=== PATIENT | male | born 1945 | race Caucasian/White ===

== ENCOUNTER 2018-11-04 09:06 | Observation (INO) | payer MEDICARE, BC ==
[2018-11-04 10:07] LABS: Mean Corpuscular HGB CONC 31.6 g/dL (32.0-36.0); Mean Corpuscular Hemoglobin 30.7 pg (27.0-31.0); Mean Corpuscular Volume 97.2 fL (78.0-98.0); RBC Distribution Width 14.4 % (11.5-14.5); Red Blood Cell (RBC) Count 4.56 mill/uL (4.70-6.10); White Blood Cell (WBC) Count 4.5 thou/uL (4.8-10.8)
[2018-11-04 10:09] LABS: ALT (SGPT) 11 U/L (8-55); AST (SGOT) 21 U/L (5-34); Alkaline Phosphatase 59 U/L (40-150); Anion Gap 11 mmol/L (10-20); BUN (Urea Nitrogen) 24 mg/dL (8.4-25.7); Bilirubin, Total 0.2 mg/dL (0.2-1.2); Calc. Creatinine Clearance 0 mL/min (70-130); Carbon Dioxide 27 mmol/L (23-31); Chloride 107 mmol/L (98-107); Estimated GFR-MDRD 40; Globulin 2.4 g/dL (2.4-3.5); Glucose 81 mg/dL (83-110); Potassium 4.4 mmol/L (3.5-5.1); Protein, Total 6.4 g/dL (5.8-8.1); Sodium 141 mmol/L (136-145)
--- NOTE | 2018-11-04 10:23 | RAD ---
EXAM: XR Ankle Rt 3 View STANDARD PROVIDED CLINICAL HISTORY: Pain COMPARISON: None FINDINGS: Nondisplaced Palacio B distal fibular fracture. Nondisplaced base of medial malleolar fracture. Possibl e nondisplaced posterior malleolar fracture. Diffuse regional osteopenia. Ankle mortise appears symmetric. Joint spaces appear preserved. IMPRESSION: Medial and lateral malleolar fractures, with possible posterior malleolar fracture.
--- NOTE | 2018-11-04 10:24 | RAD ---
EXAM: XR Knee Rt 4 View STANDARD PROVIDED CLINICAL HISTORY: Pain status post injury COMPARISON: 04/19/2016 FINDINGS: Acute nondisplaced proximal fibular shaft fracture. Chondrocalcinosis. Diffuse regional osteopenia. V ascular calcifications. Mild degenerative change, similar to prior. IMPRESSION: Acute nondisplaced proximal fibular shaft fracture.
--- NOTE | 2018-11-04 10:24 | RAD ---
3 views left ankle. HISTORY: Fall with pain left ankle. AP, lateral and oblique views left ankle obtained. Soft tissue swelling seen surrounding the left ankle. No evidence of acute fractures or bony lesion s een. IMPRESSION: no evidence of acute left ankle fracture seen.
--- NOTE | 2018-11-04 10:25 | RAD ---
EXAM: XR Hip Rt 2-3 View PROVIDED CLINICAL HISTORY: Pain FINDINGS: Comparison 04/19/2016. There is no evidence for fracture or other acute osseous abnormality. Alignmen t appears anatomic. Right hip degenerative changes are again seen. IMPRESSION: No evidence for an acute osseous abnormality. If there is persistent clinical concern, conservative m anagement and follow-up imaging advised.
[2018-11-04 10:37] LABS: #Eosinphils 0.1 thou/uL (0.0-0.7); #Lymphocytes 1.5 thou/uL (1.20-3.40); #Monocytes 0.4 thou/uL (0.11-0.59); #Neutrophils 2.4 thou/uL (1.40-6.50); %Basophils 0.7 % (0.0-1.0); %Eosinophils 3.1 % (0.0-10.0); %Lymphocytes 34.4 % (21.0-51.0); %Monocytes 8.6 % (0.0-10.0); %Neutrophils 53.2 % (42.0-75.0); Mean Platelet Volume 9.5 fL (7.4-10.4); Platelet Count 104 thou/uL (130-400); Platelet Morphology Comment Appears Decreased
[2018-11-04] MEDS ORDERED: Morphine 4 MG/ML VIAL ONE (12:15)
[2018-11-04] MEDS ORDERED: Ondansetron PF 4 MG/2 ML Vial IVP PRN (13:11)
[2018-11-04] MEDS ORDERED: Acetaminophen 325 MG TAB PO PRN (13:11)
[2018-11-04] MEDS ORDERED: Senokot S 8.6-50 MG TAB PO PRN (13:11)
[2018-11-04] MEDS ORDERED: Zolpidem Tartrate 5 MG TAB PO PRN (13:11)
--- NOTE | 2018-11-04 13:21 | PDOC.EVN ---
Event Note - Event Note Event Note: H&P #[id number]
[2018-11-04 15:33] VITALS: BMI 40.3
[2018-11-04] MEDS: Sodium Chloride 0.9% 1,000 ML IV SCH (16:20)
[2018-11-04] MEDS: HYDROcodone/Acetaminophen 5/325 mg Tablet PO PRN ×2 (17:33→21:58)
--- NOTE | 2018-11-04 18:19 | HP ---
ADMITTING COMPLAINT: Syncope, fall, and leg pain. HISTORY OF PRESENT ILLNESS: This is a 73-year-old male, being seen in the hospital because of a fall. The patient's is at bedside, who also provides a history. Apparently, the patient was walking and had a fall. The patient has a history of myasthenia gravis and thus takes medications every 6 hours. The patient's says that she was not sure if he actually had a syncopal episode with mechanical fall or fevers, just simply tired for not being able to get a good amount of sleep. The patient has been carried a diagnosis of myasthenia gravis for the past few years. The patient on imaging study was found to be having a nondisplaced fibular fracture in the right leg as well as medial and lateral malleolar fractures. Orthopedic Surgery was consulted and the case discussed between the ER and orthopedic surgeon. Per request, the patient was to be made n.p.o. past midnight. The patient at this point in time states that he does not have any other associated complaints or issues. No alleviating or aggravating factors. The patient seen and examined in the ER. at bedside. All questions answered. ALLERGIES: TO MINOCYCLINE AND TETRACYCLINE. MEDICATIONS: See MAR. FAMILY HISTORY: Negative for any medical diseases. SOCIAL HISTORY: Nondrinker. Nonsmoker. REVIEW OF SYSTEMS: All systems reviewed, pertinent positive in HPI, otherwise negative. PHYSICAL EXAMINATION: VITAL SIGNS: Blood pressure is 105/88, temperature of 98, heart rate of 52, respiratory rate of 18, and O2 saturation 100% on room air. GENERAL: The patient lying in bed. No acute discomfort. Obese. HEENT: Pupils are equal, round, and reactive to light and accommodation. Extraocular muscles intact. Oral cavity moist and pink. NECK: Supple, mobile, and nontender. Thyroid appreciated. PULMONARY: Clear to auscultation bilaterally. No rales, rhonchi, or wheezing appreciated. CARDIOVASCULAR: Sinus bradycardia. No rubs or gallops appreciated. ABDOMEN: Positive bowel sounds. Soft and nondistended. EXTREMITIES: 1+ pitting edema in bilateral lower extremities. Right lower extremity pain upon movement. LABS: Reviewed. IMAGES: Reviewed. ASSESSMENT: 1. Syncope. 2. Myasthenia gravis. 3. Hypotension. 4. Chronic lymphedema. 5. Right-sided malleolar and fibular fractures. PLAN: At this point in time, we will admit the patient to the Observation Service. Keep the patient n.p.o. past midnight, allow a diet for now. We will repeat labs in the morning and also check TSH, echocardiogram, trend cardiac enzymes, and follow up with Orthopedic evaluation. Once home medications are reconciled, we will continue his myasthenia gravis home medications. Otherwise, p.r.n. medications will be continued. Case and plan discussed with the patient and at length, they understood and agreed with this plan. Job ID: [id number]
[2018-11-04 20:02] LABS: Troponin I Less than 0.010 ng/mL (< 0.028)
[2018-11-04] MEDS: Tamsulosin HCl 0.4 MG CAP PO SCH (21:54)
[2018-11-04] MEDS: levETIRAcetam 500 MG TAB PO SCH (21:54)
[2018-11-04] MEDS: Atorvastatin Calcium 40 MG TAB PO SCH (21:54)
[2018-11-04] MEDS: Heparin 5,000 UNITS/ML VIAL SC SCH (23:48)
[2018-11-05] MEDS ORDERED: levETIRAcetam 500 MG TAB PO SCH (00:15)
[2018-11-05] MEDS ORDERED: tiZANidine HCl 4 MG TAB PO SCH (00:15)
[2018-11-05] MEDS ORDERED: clonazePAM 0.5 MG TAB PO SCH (00:15)
--- NOTE | 2018-11-05 00:58 | CON ---
DATE OF CONSULTATION: HISTORY OF PRESENT ILLNESS: This is a pleasant 73-year-old gentleman who suffered a very low energy fall on his walker today at home and suffered a bimalleolar ankle fracture. PAST MEDICAL HISTORY: His past medical history is very significant for myasthenia gravis. He is very weak. He is a household ambulator with a walker at this time. There is a possible syncopal episode at the same time. This is unclear. PHYSICAL EXAMINATION: GENERAL: Shows an obese gentleman. His eyelids are almost completely closed on oxygen, breathing fairly heavily. EXTREMITIES: He has a splint on his right foot. He has intact capillary refill. Intact sensation in his toes. Splint appears to be in good condition, is not biting. LABORATORY DATA: Radiograph showed a bimalleolar ankle fracture which is completely nondisplaced. PLAN: We had a lengthy discussion tonight. His fractures are nondisplaced. With or without surgery, he will not be able to bear weight on this leg for at least six weeks, possibly 12. Therefore, I do not see a big advantage to surgically fixing the bones unless they happened to displace. Also, I think the risk of general anesthesia is great for him. I think it would be possibly difficult for him to come off the ventilator if he is put to sleep. For these reasons, we would like nonoperative treatment. He expressed to me his desire to go to [facility] in [place], but we will do our best to facilitate this once his medical workup is completed. Job ID: [id number]
[2018-11-05 04:44] LABS: INR-International Normal Ratio 1.1; PTT 25.7 SEC (22.9-36.1)
[2018-11-05 04:58] LABS: Anion Gap 14 mmol/L (10-20); BUN (Urea Nitrogen) 20 mg/dL (8.4-25.7); Calc. Creatinine Clearance 148 mL/min (70-130); Calcium 8.7 mg/dL (7.8-10.44); Carbon Dioxide 22 mmol/L (23-31); Chloride 107 mmol/L (98-107); Estimated GFR-MDRD 79; Glucose 63 mg/dL (83-110); Potassium 4.3 mmol/L (3.5-5.1); Sodium 139 mmol/L (136-145)
[2018-11-05 05:04] LABS: Troponin I 0.011 ng/mL (< 0.028)
[2018-11-05] MEDS: HYDROcodone/Acetaminophen 5/325 mg Tablet PO PRN ×2 (05:05→15:23)
[2018-11-05 05:10] LABS: Band 3 % (5-11); Hemoglobin 13.3 g/dL (14.0-18.0); Lymphocytes 25 % (21-51); MDiff Complete? YES; Mean Corpuscular HGB CONC 31.3 g/dL (32.0-36.0); Mean Corpuscular Hemoglobin 30.5 pg (27.0-31.0); Mean Corpuscular Volume 97.6 fL (78.0-98.0); Mean Platelet Volume 9.3 fL (7.4-10.4); Monocytes 3 % (0-10); Neutrophil 69 % (42-75); Platelet Count 92 thou/uL (130-400); Platelet Morphology Comment Appears Decreased; RBC Distribution Width 14.3 % (11.5-14.5); RBC Morphology Normal; Red Blood Cell (RBC) Count 4.37 mill/uL (4.70-6.10)
[2018-11-05] MEDS: Sodium Chloride 0.9% 1,000 ML IV SCH (07:17)
[2018-11-05] MEDS: levETIRAcetam 500 MG TAB PO SCH ×2 (08:18→20:11)
[2018-11-05] MEDS: Pregabalin 75 MG CAP PO SCH ×2 (08:20→20:11)
[2018-11-05] MEDS: tiZANidine HCl 4 MG TAB PO SCH ×3 (08:22→20:10)
[2018-11-05] MEDS: clonazePAM 1 MG TAB PO SCH ×2 (08:22→20:10)
[2018-11-05] MEDS: Aspirin 325 MG TAB PO SCH (08:22)
[2018-11-05] MEDS: Pyridostigmine Bromide IR 60 MG TAB PO SCH ×4 (08:43→20:10)
[2018-11-05] MEDS ORDERED: Prevnar 13-Val Conj/PF 0.5 ML SYRINGE IM ONE (09:00)
[2018-11-05] MEDS: Heparin 5,000 UNITS/ML VIAL SC SCH ×2 (10:32→20:12)
--- NOTE | 2018-11-05 11:29 | PDOC.PN ---
- Subjective Encounter Start Date: 11/05/18 Encounter Start Time: 11:27 Patient seen and examined, no new issues. - Objective Vital Signs & Weight: Vital Signs (12 hours) Temp Pulse Resp BP BP Pulse Ox 11/05/18 08:20 98.7 F 67 18 136/61 94 L 11/05/18 04:40 97.9 F 60 18 139/60 99 11/05/18 00:00 97.7 F 56 L 18 141/65 H 99 Weight Weight 330 lb I&O: 11/04/18 11/05/18 11/06/18 06:59 06:59 06:59 Intake Total 1000 1000 Output Total 905 300 Balance 95 700 Result Diagrams: 11/05/18 04:28 11/05/18 04:28 Phys Exam - Physical Examination Constitutional: NAD HEENT: PERRLA, moist MMs, sclera anicteric Neck: no nodes, no JVD, supple Respiratory: no wheezing, no rales, no rhonchi Cardiovascular: RRR, no significant murmur, no rub Gastrointestinal: soft, non-tender, no distention, positive bowel sounds Musculoskeletal: pulses present, edema present RLE in wrap Dx/Plan (1) Right fibular fracture Code(s): S82.401A - UNSP FRACTURE OF SHAFT OF RIGHT FIBULA, INIT FOR CLOS FX Status: Acute (2) Sinus bradycardia Code(s): R00.1 - BRADYCARDIA, UNSPECIFIED Status: Acute (3) Alzheimer's dementia Code(s): G30.9 - ALZHEIMER'S DISEASE, UNSPECIFIED Status: Chronic (4) Obesity (BMI 30-39.9) Code(s): E66.9 - OBESITY, UNSPECIFIED Status: Chronic - Plan * pending placement, no sx intervention for now * pain control * cont PT * DC once placement arranged * echo normal, asymptomatic bradycardia, will monitor * case and plan d/w patient at length, he understood and agreed with this plan
[2018-11-05] MEDS: Morphine 4 MG/ML VIAL SLOW IVP PRN (17:37)
[2018-11-05] MEDS: Atorvastatin Calcium 40 MG TAB PO SCH (20:10)
[2018-11-05] MEDS: Tamsulosin HCl 0.4 MG CAP PO SCH (20:11)
[2018-11-05] MEDS ORDERED: TESTOSTERONE 4 MG TD SCH (21:00)
[2018-11-06] MEDS: Morphine 4 MG/ML VIAL SLOW IVP PRN ×2 (05:17→17:07)
[2018-11-06] MEDS: clonazePAM 1 MG TAB PO SCH ×2 (08:33→21:12)
[2018-11-06] MEDS: Pregabalin 75 MG CAP PO SCH ×2 (08:34→21:11)
[2018-11-06] MEDS: Aspirin 325 MG TAB PO SCH (08:36)
[2018-11-06] MEDS: tiZANidine HCl 4 MG TAB PO SCH ×3 (08:36→21:12)
[2018-11-06] MEDS: levETIRAcetam 500 MG TAB PO SCH ×2 (08:37→21:12)
[2018-11-06] MEDS: Pyridostigmine Bromide IR 60 MG TAB PO SCH ×4 (08:38→21:12)
[2018-11-06] MEDS: Heparin 5,000 UNITS/ML VIAL SC SCH ×2 (08:38→21:14)
[2018-11-06 14:52] LABS: Bilirubin Negative (Negative); Blood, Urine Negative (Negative); Clarity CLEAR (Clear); Glucose, Urine (Dipstick) Negative (Negative); Leukocyte Negative (Negative); Nitrite Negative (Negative); Protein, Urine (Dipstick) Negative (Neg-Trace); Specific Gravity, Urine 1.015 (1.002-1.036); Urobilinogen 0.2 mg/dL (0.2-1.0)
[2018-11-06 14:53] LABS: Bacteria/HPF None Seen HPF (None Seen); Hyaline Casts/LPF 0-3 HYALINE CAST LPF (0-3 Hyaline); RBC/HPF 0-3 HPF (0-3); Squamous Epithelial None Seen HPF (0-3); WBC/HPF None Seen HPF (0-3)
[2018-11-06 14:56] LABS: Urine Culture Reflex No No
--- NOTE | 2018-11-06 17:12 | PDOC.PN ---
- Subjective Encounter Start Date: 11/06/18 Encounter Start Time: 10:15 Subjective: pt up in bed complains of pain to his right leg - Objective Vital Signs & Weight: Vital Signs (12 hours) Temp Pulse Pulse Pulse Pulse Resp BP 11/06/18 14:06 72 65 70 130/62 11/06/18 12:30 97.7 F 60 16 11/06/18 07:55 97.9 F 65 16 BP BP BP Pulse Ox 11/06/18 14:06 183/71 H 142/64 H 11/06/18 12:30 139/64 96 11/06/18 07:55 143/60 H 94 L Weight Weight 333 lb 3.2 oz I&O: 11/05/18 11/06/18 11/07/18 06:59 06:59 06:59 Intake Total 1000 2930 480 Output Total 905 2450 Balance 95 480 480 Result Diagrams: 11/05/18 04:28 11/05/18 04:28 Phys Exam - Physical Examination Respiratory: no wheezing, no rales, no rhonchi, wheezing present, clear to auscultation bilateral Cardiovascular: RRR, no significant murmur, no rub, gallop, irregular Gastrointestinal: soft, non-tender, no distention, positive bowel sounds Musculoskeletal: edema present right leg wrapped Dx/Plan (1) Right fibular fracture Code(s): S82.401A - UNSP FRACTURE OF SHAFT OF RIGHT FIBULA, INIT FOR CLOS FX Status: Acute (2) Encephalopathy Code(s): G93.40 - ENCEPHALOPATHY, UNSPECIFIED Status: Acute (3) BPH (benign prostatic hyperplasia) Code(s): N40.0 - BENIGN PROSTATIC HYPERPLASIA WITHOUT LOWER URINRY TRACT SYMP Status: Chronic (4) Myasthenia gravis Code(s): G70.00 - MYASTHENIA GRAVIS WITHOUT (ACUTE) EXACERBATION Status: Acute - Plan spoke with pt's about placement. she will talk with her about -: going to inpatient rehab. neurology consult pending -: ua pending. no plans for surgery. * . Review of Systems - Review of Systems Respiratory: negative: Cough, Dry, Shortness of Breath, Hemoptysis, SOB with Excertion, Pleuritic Pain, Sputum, Wheezing Cardiovascular: negative: chest pain, palpitations, orthopnea, paroxysmal nocturnal dyspnea, edema, light headedness, other Gastrointestinal: negative: Nausea, Vomiting, Abdominal Pain, Diarrhea, Constipation, Melena, Hematochezia, Other Musculoskeletal: Leg Pain - Medications/Allergies Allergies/Adverse Reactions: Allergies Allergy/AdvReac Type Severity Reaction Status Date / Time Tetracyclines Allergy Verified 11/04/18 16:03 Medications: Current Medications Acetaminophen (Tylenol) 650 mg PO Q4H PRN PRN Reason: Headache/Fever/Mild Pain (1-3) Aspirin (Aspirin) 325 mg PO DAILY [facility] Last Admin: 11/06/18 08:36 Dose: 325 mg Atorvastatin Calcium (Lipitor) 40 mg PO HS [facility] Last Admin: 11/05/18 20:10 Dose: 40 mg Cholecalciferol (Vitamin D) 400 units PO DAILY [facility] Clonazepam (Klonopin) 1 mg PO BID [facility] Last Admin: 11/06/18 08:33 Dose: 1 mg Heparin Sodium (Porcine) (Heparin) 5,000 units SC BID [facility] Last Admin: 11/06/18 08:38 Dose: 5,000 units Levetiracetam (Keppra) 250 mg PO BID [facility] Last Admin: 11/06/18 08:37 Dose: 250 mg Metaxalone (Skelaxin) 800 mg PO TID [facility] Last Admin: 11/06/18 17:07 Dose: 800 mg Morphine Sulfate (Morphine) 2 mg SLOW IVP Q12H PRN PRN Reason: Pain Last Admin: 11/06/18 17:07 Dose: 2 mg Non-Formulary Medication (Testosterone [Androderm]) 4 mg TD [facility] Ondansetron HCl (Zofran) 4 mg IVP Q6H PRN PRN Reason: Nausea/Vomiting Pantoprazole Sodium (Protonix) 40 mg PO DAILY [facility] Last Admin: 11/06/18 08:38 Dose: 40 mg Pregabalin (Lyrica) 150 mg PO BID [facility] Last Admin: 11/06/18 08:34 Dose: 150 mg Pyridostigmine [place] (Mestinon) 60 mg PO QID [facility] Last Admin: 11/06/18 17:06 Dose: 60 mg Senna/Docusate Sodium (Senokot S) 2 tab PO BID PRN PRN Reason: Constipation Tamsulosin HCl (Flomax) 0.4 mg PO HS [facility] Last Admin: 05/06/19 20:11 Dose: 0.4 mg Tizanidine HCl (Zanaflex) 4 mg PO TID [facility] Last Admin: 11/06/18 17:07 Dose: 4 mg Zolpidem Tartrate (Ambien) 5 mg PO HSPRN PRN PRN Reason: Insomnia Last Admin: 11/05/18 20:10 Dose: 5 mg
[2018-11-06] MEDS: Tamsulosin HCl 0.4 MG CAP PO SCH (21:13)
[2018-11-06] MEDS: Atorvastatin Calcium 40 MG TAB PO SCH (21:13)
[2018-11-07] MEDS ORDERED: Sodium Chloride 0.9% 10 ML ONE (05:40)
[2018-11-07] MEDS: Morphine 4 MG/ML VIAL SLOW IVP PRN ×2 (05:43→19:09)
--- NOTE | 2018-11-07 07:49 | PRG ---
DATE OF SERVICE: 11/06/2018 Mr. Martin was admitted after taking a fall at home, which resulted in a fracture of his right foot. He is a new patient of mine with 3 ongoing medical neurologic issues including peripheral neuropathy with painful feet, gait difficulties secondary to this, myasthenia gravis, and complex partial seizures. He has been doing relatively well from a standpoint of his myasthenia gravis. When seen in the office, his strength was quite normal. He has not had any seizures in quite some time. His biggest complaint was related to his neuropathy. He was also recently seen by Dr. Epstein for pain management of neuropathy. Since admission, he reports that his strength is otherwise good. He is having quite a bit of pain in the right hip as well as the right lower leg. This limits his ability to move it. He does not report any upper extremity weakness or difficulty swallowing, or speech changes. On exam, he is alert and appropriate. His speech is fluent and clear. Cranial nerves are intact. Motor exam shows good strength in both upper extremities. He has antigravity strength in the left leg. When attempting to move the right leg at all, he yells out in pain. Sensation was intact to light touch. No abnormal movements were seen. Neurologically, things seem to be relatively stable. I do not see any need for change in his treatment. The current question is how his fracture is going to be handled. I will be available if you have any further concerns. Job ID: [id number]
[2018-11-07] MEDS: clonazePAM 1 MG TAB PO SCH (08:31)
[2018-11-07] MEDS: Aspirin 325 MG TAB PO SCH (08:31)
[2018-11-07] MEDS: levETIRAcetam 500 MG TAB PO SCH (08:32)
[2018-11-07] MEDS: Pregabalin 75 MG CAP PO SCH ×3 (08:33→16:26)
[2018-11-07] MEDS: Pyridostigmine Bromide IR 60 MG TAB PO SCH ×3 (08:34→16:26)
[2018-11-07] MEDS: tiZANidine HCl 4 MG TAB PO SCH ×2 (08:34→15:28)
[2018-11-07] MEDS ORDERED: Cholecalciferol (Vitamin D3) 400 UNITS TAB PO SCH (09:00)
[2018-11-07] MEDS: Heparin 5,000 UNITS/ML VIAL SC SCH (10:27)
[2018-11-07 11:24] LABS: #Eosinphils 0.2 thou/uL (0.0-0.7); #Monocytes 0.4 thou/uL (0.11-0.59); %Basophils 0.7 % (0.0-1.0); %Eosinophils 5.2 % (0.0-10.0); %Lymphocytes 27.9 % (21.0-51.0); %Monocytes 11.8 % (0.0-10.0); %Neutrophils 54.5 % (42.0-75.0); Hemoglobin 12.9 g/dL (14.0-18.0); Mean Corpuscular HGB CONC 32.5 g/dL (32.0-36.0); Mean Corpuscular Hemoglobin 30.9 pg (27.0-31.0); Mean Corpuscular Volume 95.2 fL (78.0-98.0); Mean Platelet Volume 9.4 fL (7.4-10.4); Platelet Count 91 thou/uL (130-400); RBC Distribution Width 13.9 % (11.5-14.5); Red Blood Cell (RBC) Count 4.17 mill/uL (4.70-6.10); White Blood Cell (WBC) Count 3.7 thou/uL (4.8-10.8)
--- NOTE | 2018-11-07 12:26 | PDOC.PN ---
- Subjective Encounter Start Date: 11/07/18 Encounter Start Time: 12:26 Doing ok. No new complaints. Says surgeon told him he would never walk again. Moderate pain now. - Objective Vital Signs & Weight: Vital Signs (12 hours) Temp Pulse Resp BP BP Pulse Ox 11/07/18 12:05 98.9 F 69 18 138/63 97 11/07/18 08:27 99.1 F 60 16 149/67 H 94 L 11/07/18 03:00 99.3 F 68 20 152/71 H 96 Weight Weight 333 lb I&O: 11/06/18 11/07/18 11/08/18 06:59 06:59 06:59 Intake Total 2930 1300 Output Total 2450 1875 Balance 480 -575 Result Diagrams: 11/07/18 11:13 11/05/18 04:28 Phys Exam - Physical Examination Constitutional: NAD Morbidly obese. Respiratory: no wheezing, no rales, no rhonchi, clear to auscultation bilateral Cardiovascular: RRR, no significant murmur Gastrointestinal: soft, non-tender, no distention, positive bowel sounds RLE in soft cast at ankle. Bruising and edema B great toes. Psychiatric: normal affect Dx/Plan (1) Seizure disorder Code(s): G40.909 - EPILEPSY, UNSP, NOT INTRACTABLE, WITHOUT STATUS EPILEPTICUS Status: Acute (2) Peripheral neuropathy Code(s): G62.9 - POLYNEUROPATHY, UNSPECIFIED Status: Acute (3) Myasthenia gravis Code(s): G70.00 - MYASTHENIA GRAVIS WITHOUT (ACUTE) EXACERBATION Status: Acute (4) Right fibular fracture Code(s): S82.401A - UNSP FRACTURE OF SHAFT OF RIGHT FIBULA, INIT FOR CLOS FX Status: Acute (5) BPH (benign prostatic hyperplasia) Code(s): N40.0 - BENIGN PROSTATIC HYPERPLASIA WITHOUT LOWER URINRY TRACT SYMP Status: Chronic (6) Obesity (BMI 30-39.9) Code(s): E66.9 - OBESITY, UNSPECIFIED Status: Chronic (7) Sleep apnea Code(s): G47.30 - SLEEP APNEA, UNSPECIFIED Status: Chronic - Plan * Patient is still in obs. * He is reluctant to go to [facility], but has now accepted that potential option * Rehab eval pending. * No surgery on R ankle fx. * Continue home meds.
[2018-11-07 15:27] VITALS: BP 122/60; TEMP 98.3
--- NOTE | 2018-11-08 12:15 | DIS ---
DATE OF ADMISSION: 11/04/2018 DATE OF DISCHARGE: 11/07/2018 DISCHARGE DIAGNOSES: 1. Right malleolar and fibular fracture. 2. History of seizure disorder. 3. Peripheral neuropathy. 4. History of myasthenia gravis. 5. BPH. 6. Obesity. 7. Obstructive sleep apnea. HISTORY OF PRESENT ILLNESS: This patient is a 73-year-old male with a history of myasthenia gravis and peripheral neuropathy, who had a low-impact fall at home and hurt his right ankle and had evidence of fibular and malleolar fracture in the emergency department. The patient was placed in observation due to concerns for relatively low blood pressure and the possibility of syncope. He was seen by Dr. Talamantes in the orthopedic service, who felt the patient would benefit from conservative management rather than surgical intervention due to concerns of a possible syncopal episode. An echocardiogram was performed, which revealed suggestion of diastolic dysfunction, EF 55% to 60%, and there was dilatation of the aortic root in the ascending aorta. The patient's neurologist, Dr. Enriquez, was consulted per the family request, who felt the patient neurologically was quite stable and did not recommend any changes in his regimen. The patient was then in a position, trying to figure out how to manage with his neurologic issues and his fracture. He was evaluated by Inpatient Rehab Facility and although reluctant, was accepted there and was transferred to that facility. On the day of discharge, his physical exam is documented in the progress note on the same day. DISPOSITION: The patient is discharged in stable condition to the Inpatient Rehab Facility at [place]. DISCHARGE INSTRUCTIONS: He will be nonweightbearing on the right lower extremity for at least 6 weeks. He will be on a regular diet. He will have OT and PT. DISCHARGE MEDICATIONS: He will be on, 1. P.r.n. acetaminophen. 2. Vitamin D. 3. Subcu heparin. 4. Morphine p.r.n. 5. Pantoprazole 40 mg daily. 6. Senokot-S b.i.d. 7. Ambien 5 mg at bedtime p.r.n. 8. Flomax 0.4 at bedtime. 9. Androderm 4 mg patch at bedtime. 10. Vitamin D3. 11. Lipitor 40 mg at bedtime. 12. Vitamin B12 of 1000 mcg daily. 13. Keppra 250 mg b.i.d. 14. Klonopin 1 mg b.i.d. 15. Metaxalone 800 mg t.i.d. 16. Mestinon 1 p.o. q.i.d. 17. Tizanidine 4 mg t.i.d. 18. Lyrica 150 mg q.i.d. 19. Aspirin 81 mg p.o. daily. FOLLOWUP: He is to see Dr. Bustamante in the Rehab and will follow up with Dr. Enriquez as an outpatient. He will see Sancho Luis in 2 to 3 weeks and Brandon Talamantes in 2 to 3 weeks as well. The patient can return to the hospital should he have any problems prior to that time. Job ID: [id number]
== END 2018-11-07 19:45 ==
LOC: ERS 09:06 → 2NO 12:52
PROVIDERS: ADMIT Internal Medicine; ATTEND Internal Medicine
DX: S82.891A Other fracture of right lower leg, initial encounter for closed fracture (principal); S82.401A Unspecified fracture of shaft of right fibula, initial encounter for closed fracture; G70.00 Myasthenia gravis without (acute) exacerbation; I95.9 Hypotension, unspecified; I89.0 Lymphedema, not elsewhere classified; E66.9 Obesity, unspecified; G62.9 Polyneuropathy, unspecified; N40.0 Benign prostatic hyperplasia without lower urinary tract symptoms; G47.33 Obstructive sleep apnea (adult) (pediatric); W19.XXXA Unspecified fall, initial encounter; Z88.8 Allergy status to other drugs, medicaments and biological substances; Z68.41 Body mass index [BMI] 40.0-44.9, adult
CPT/HCPCS: 29505; 73502; 73564; 73610 ×2; 80048; 80053; 81001; 82306; 84443; 84484 ×3; 85025 ×3; 85610; 85730; 93005; 93306; 96361 ×2; 96374; 96376 ×3; 97110; 97139; 97530 ×2; 99285; G0378 ×3; 36415; J1644; J2270

== ENCOUNTER 2018-11-25 16:38 | Inpatient (IN) | payer MEDICARE, BC ==
--- NOTE | 2018-11-25 18:03 | RAD ---
3 VIEWS RIGHT ANKLE: HISTORY: Fall with pain. Post casting radiographs. FINDINGS: AP, lateral and oblique views right ankle obtained. The medial and lateral malleolar fractures have been casted. Post casting images demonstrate some mil d displacement of the proximal distal fracture fragments. IMPRESSION: Post casting right ankle fractures. Transcribed Date/Time: 11/25/2018 6:10 PM
[2018-11-25] MEDS ORDERED: traMADol HCl 50 MG TAB ONE (18:51)
[2018-11-25] MEDS ORDERED: Morphine 4 MG/ML VIAL ONE (19:30)
[2018-11-25] MEDS ORDERED: HYDROcodone/Acetaminophen 5/325 mg Tablet PO PRN ×3 (20:17→20:39)
[2018-11-25 20:39] VITALS: BMI 40.1
[2018-11-25] MEDS ORDERED: Senokot S 8.6-50 MG TAB PO PRN (20:39)
[2018-11-25] MEDS ORDERED: Acetaminophen 325 MG TAB PO PRN (20:39)
[2018-11-25 21:10] LABS: #Eosinphils 0.1 thou/uL (0.0-0.7); #Lymphocytes 1.8 thou/uL (1.20-3.40); #Monocytes 0.5 thou/uL (0.11-0.59); #Neutrophils 2.4 thou/uL (1.40-6.50); %Basophils 0.9 % (0.0-1.0); %Eosinophils 2.9 % (0.0-10.0); %Lymphocytes 37.7 % (21.0-51.0); %Monocytes 10.3 % (0.0-10.0); %Neutrophils 48.3 % (42.0-75.0); Hemoglobin 13.7 g/dL (14.0-18.0); Mean Corpuscular HGB CONC 32.9 g/dL (32.0-36.0); Mean Corpuscular Hemoglobin 30.7 pg (27.0-31.0); Mean Corpuscular Volume 93.2 fL (78.0-98.0); Mean Platelet Volume 8.2 fL (7.4-10.4); Platelet Count 201 thou/uL (130-400); RBC Distribution Width 13.8 % (11.5-14.5); Red Blood Cell (RBC) Count 4.45 mill/uL (4.70-6.10); White Blood Cell (WBC) Count 4.9 thou/uL (4.8-10.8)
[2018-11-25 21:30] LABS: ALT (SGPT) 21 U/L (8-55); AST (SGOT) 30 U/L (5-34); Alkaline Phosphatase 172 U/L (40-150); Anion Gap 18 mmol/L (10-20); BUN (Urea Nitrogen) 19 mg/dL (8.4-25.7); Bilirubin, Total 0.9 mg/dL (0.2-1.2); Calc. Creatinine Clearance 130 mL/min (70-130); Calcium 10.5 mg/dL (7.8-10.44); Carbon Dioxide 25 mmol/L (23-31); Chloride 105 mmol/L (98-107); Estimated GFR-MDRD 69; Globulin 3.3 g/dL (2.4-3.5); Glucose 92 mg/dL (83-110); Potassium 4.4 mmol/L (3.5-5.1); Protein, Total 7.3 g/dL (5.8-8.1); Sodium 144 mmol/L (136-145)
[2018-11-25] MEDS: Famotidine 20 MG TAB PO SCH ×2 (21:51→23:04)
[2018-11-25] MEDS: HYDROcodone/Acetaminophen 5/325 mg Tablet PO PRN (23:03)
[2018-11-25] MEDS: Zolpidem Tartrate 5 MG TAB PO PRN (23:03)
[2018-11-25] MEDS ORDERED: Simethicone Chewable 80 MG TAB PO PRN (23:25)
[2018-11-25] MEDS ORDERED: Bisacodyl 10 MG SUPP PR PRN (23:25)
[2018-11-25] MEDS ORDERED: Diabetic Tussin 200 MG/10 ML UDCUP PO PRN (23:25)
[2018-11-26] MEDS ORDERED: Polyethylene Glycol 3350 17 GM Packet PO SCH (00:15)
[2018-11-26] MEDS ORDERED: Tamsulosin HCl 0.4 MG CAP PO SCH (00:15)
[2018-11-26] MEDS ORDERED: Pyridostigmine Bromide IR 60 MG TAB PO SCH (00:15)
[2018-11-26] MEDS ORDERED: levETIRAcetam 500 mg/5 ml Oral Solution PO SCH (00:15)
[2018-11-26] MEDS ORDERED: tiZANidine HCl 4 MG TAB PO SCH (00:15)
[2018-11-26] MEDS ORDERED: Atorvastatin Calcium 40 MG TAB PO SCH (00:15)
[2018-11-26] MEDS ORDERED: Pregabalin 75 MG CAP PO SCH (00:15)
[2018-11-26] MEDS ORDERED: clonazePAM 1 MG TAB PO SCH (00:15)
--- NOTE | 2018-11-26 04:24 | HP ---
PRIMARY CARE PHYSICIAN: Arturo Reed MD, also listed is Dr. Souza. Dr. Reed was integration consultant this weekend at [facility], where patient went yesterday from the Rehab. CHIEF COMPLAINT: Pain to right ankle. HISTORY OF PRESENT ILLNESS: Mr. Martin is a 73-year-old male, who reported to the emergency room today with complaints of ongoing right ankle and right leg pain due to a right malleolar and fibular fracture, which he sustained on 11/04/2018. Dr. Talamantes of Orthopedic Surgery was initially consulted when he was admitted on 11/[address] Talamantes thought that the fractures were nondisplaced and did not see advantage for surgically fixing the fractures and also increased risk of general anesthesia being able to be weaned off the ventilator should he be placed under general anesthesia. The patient was sent to the Rehab on 11/07/2018, where he spent several weeks and was discharged to the [facility] yesterday. The patient's reports that when they got to the [facility] yesterday, they were not quite ready for him, did not have the equipment needed, and also did not have any prescriptions including pain medication for continued pain to his right ankle. Therefore, due to not being able to obtain any medication, the patient was brought here for further evaluation. The ER repeated the x-ray which remained very similar in appearance to initial presentation and was admitted for intractable pain. Dr. Hermosillo on-call for Orthopedics was consulted from the ER and asked for Medicine to admit and they would follow. PAST MEDICAL HISTORY: The patient does have past medical history pertinent for seizure disorder, peripheral neuropathy, history of myasthenia gravis, BPH, obesity, obstructive sleep apnea. An echocardiogram was done on last admission with an EF of 55% to 60%. Neurology was also consulted on the last visit, Dr. Enriquez, at family request and felt the patient was neurologically stable and did not recommend any changes to his regimen. The patient was subsequently admitted to the hospital observation for pain management, Ortho consult and possible placement discussion. ALLERGIES: MINOCYCLINE AND TETRACYCLINE. FAMILY HISTORY: Negative for any medical diseases. SOCIAL HISTORY: Nondrinker, nonsmoker. HOME MEDICATIONS: 1. Tylenol 500 mg p.o. q.4 hours as needed. 2. Aspirin 81 mg p.o. daily. 3. Atorvastatin 40 mg p.o. at bedtime. 4. Bisacodyl 10 mg ME daily. 5. Calcium 500 mg 1-2 tablets q.6 hours as needed. 6. Vitamin D3 of 1000 units p.o. daily. 7. Klonopin 1 mg p.o. b.i.d. 8. Clonidine 0.1 mg p.o. q.6 hours as needed. 9. Vitamin B12 of 500 mcg p.o. daily. 10. Guaifenesin 100 mg/5 mL, q.4 hours as needed p.r.n. 11. Heparin sodium 5000 units subcu b.i.d. 12. Keppra 250 mg p.o. b.i.d. 13. Loperamide 2 mg p.o. q.6 hours as needed. 14. Metaxalone 800 mg p.o. t.i.d. p.r.n. 15. MiraLAX 17 g p.o. b.i.d. 16. Lyrica 150 mg p.o. b.i.d. 17. Mestinon 60 mg p.o. q.i.d. 18. Senokot-S 2 tabs p.o. b.i.d. 19. Simethicone two tablets p.o. b.i.d. 20. Flomax 0.4 mg p.o. at bedtime. 21. Testosterone 1 patch 4 mg daily. 22. Tizanidine one tablet p.o. t.i.d. 23. Ambien 5 mg p.o. at bedtime. REVIEW OF SYSTEMS: Right leg pain. All other systems were reviewed. Pertinent positive in HPI, otherwise negative. PHYSICAL EXAMINATION: VITAL SIGNS: Blood pressure 154/60, pulse is 62, respirations are 18, temp is 99.3, PO2 sats are 97% on room air. GENERAL: The patient appears nontoxic, is in mild pain distress. HEENT: Head is atraumatic and normocephalic. Eyes, pupils are equally round and reactive to light. Extraocular muscles are intact. Nose, mucous membranes are moist. Mouth exam is normal. NECK: Normal range of motion. No JVD. RESPIRATORY: Breath sounds are clear. Chest expansion is equal. CARDIOVASCULAR: Heart rate regular rate and rhythm. Heart sounds are normal. ABDOMEN: Bowel sounds are normal. Nontender. BACK: Normal range of motion. No CVA tenderness. EXTREMITIES: Upper extremity, motor strength is normal, sensation intact, radial pulse normal. Lower extremity, right foot with ecchymosis to foot diffusely. Pulses are present. There is mild swelling. Cap refill 4 seconds. All compartments are soft. Normal toe movement. Right medial cords nontender, nonindurated. Skin temp, odor of right leg is normal. Left leg normal strength, normal sensation. Pedal pulses normal. NEUROLOGIC: The patient is oriented to person, place, and time. Speech is normal. Memory is normal. SKIN: Warm and dry. Normal in color. PSYCH: Has a normal affect. Ankle, right 3-view medial and lateral malleolar fractures have been casted. Postcasting images demonstrate mild displacement of proximal distal fracture fragments. LABORATORY DATA: White blood cell count 4.9, hemoglobin 13.7, hematocrit is 41.5, and platelet count is 201. Sodium 144, potassium 4.4, chloride 105, carbon dioxide 25, gap is 18, BUN is 19, creatinine is 0.005, estimated GFR 69, glucose is 92, calcium 10.5. Liver enzymes are unremarkable. Alkaline phosphatase is 172. ASSESSMENT AND PLAN: 1. Right medial and lateral malleolar fracture with intractable pain. Pain medications will be started. We will ask PT to evaluate. Orthopedics has been consulted. Per Dr. Talamantes's note, the patient should be nonweightbearing. 2. History of myasthenia gravis. We will restart home medication. 3. BPH. We will restart home medication. 4. Seizure disorder. We will restart home medication. 5. Dyslipidemia. We will restart home medication. 6. Deep venous thrombosis and gastrointestinal prophylaxis will be started. 7. Hospital course will be dependent on clinical findings. Job ID: [id number]
[2018-11-26 06:08] LABS: #Eosinphils 0.3 thou/uL (0.0-0.7); #Monocytes 0.6 thou/uL (0.11-0.59); %Eosinophils 5.6 % (0.0-10.0); %Lymphocytes 40.6 % (21.0-51.0); %Monocytes 12.3 % (0.0-10.0); %Neutrophils 40.5 % (42.0-75.0); Hemoglobin 12.9 g/dL (14.0-18.0); Mean Corpuscular HGB CONC 31.4 g/dL (32.0-36.0); Mean Corpuscular Hemoglobin 29.8 pg (27.0-31.0); Mean Corpuscular Volume 94.7 fL (78.0-98.0); Mean Platelet Volume 8.4 fL (7.4-10.4); Platelet Count 193 thou/uL (130-400); Red Blood Cell (RBC) Count 4.33 mill/uL (4.70-6.10); White Blood Cell (WBC) Count 4.8 thou/uL (4.8-10.8)
[2018-11-26 06:27] LABS: ALT (SGPT) 19 U/L (8-55); AST (SGOT) 31 U/L (5-34); Albumin 3.7 g/dL (3.4-4.8); Alkaline Phosphatase 162 U/L (40-150); Anion Gap 14 mmol/L (10-20); BUN (Urea Nitrogen) 19 mg/dL (8.4-25.7); Bilirubin, Total 0.9 mg/dL (0.2-1.2); Calc. Creatinine Clearance 138 mL/min (70-130); Calcium 9.7 mg/dL (7.8-10.44); Carbon Dioxide 26 mmol/L (23-31); Chloride 107 mmol/L (98-107); Estimated GFR-MDRD 74; Globulin 2.7 g/dL (2.4-3.5); Glucose 89 mg/dL (83-110); Potassium 4.8 mmol/L (3.5-5.1); Protein, Total 6.4 g/dL (5.8-8.1); Sodium 142 mmol/L (136-145)
[2018-11-26] MEDS: Pregabalin 75 MG CAP PO SCH ×2 (08:12→20:32)
[2018-11-26] MEDS: Calcium Carbonate + Vit D 1 TAB PO SCH (08:12)
[2018-11-26] MEDS: Aspirin 81 mg Enteric Coated Tablet PO SCH (08:13)
[2018-11-26] MEDS: Famotidine 20 MG TAB PO SCH ×2 (08:14→20:31)
[2018-11-26] MEDS: Polyethylene Glycol 3350 17 GM Packet PO SCH ×2 (08:14→20:31)
[2018-11-26] MEDS: levETIRAcetam 500 mg/5 ml Oral Solution PO SCH ×2 (08:14→20:31)
[2018-11-26] MEDS: clonazePAM 1 MG TAB PO SCH ×2 (08:14→20:32)
[2018-11-26] MEDS: tiZANidine HCl 4 MG TAB PO SCH ×3 (08:16→20:31)
[2018-11-26] MEDS: Pyridostigmine Bromide IR 60 MG TAB PO SCH ×4 (08:19→20:31)
[2018-11-26] MEDS: HYDROcodone/Acetaminophen 5/325 mg Tablet PO PRN ×4 (08:20→20:32)
[2018-11-26] MEDS ORDERED: Enoxaparin Sodium 40 MG/0.4 ML SYRINGE SC SCH ×2 (09:00)
[2018-11-26] MEDS ORDERED: HEPARIN SODIUM PORCINE 5000 UNIT SC SCH (09:00)
[2018-11-26] MEDS: Enoxaparin Sodium 80 MG/0.8 ML SYRINGE SC SCH ×2 (09:06→20:32)
--- NOTE | 2018-11-26 09:14 | ULT ---
BILATERAL LOWER EXTREIMTY VENOUS DOPPLER ULTRASOUND: HISTORY: Right ankle fracture, increased edema in the lower extremities. TECHNIQUE: [place] scale ultrasound with color flow and spectral Doppler imaging of the deep venous system of the l ower extremity was performed bilaterally. FINDINGS: There is good flow, compression, and augmentation noted in the left common femoral, femoral, deep fem oral, cerebral, and greater saphenous veins. There is absence of compression in the intraluminal thr ombus in the distal right femoral vein. The remainder of the deep venous system is otherwise patent. IMPRESSION: Deep vein thrombosis in the right lower extremity. Discussed over the telephone with the patient's nurse, Sanjana Hernandez, at 8:30 a.m. CODE LYNDA POS: CASI
--- NOTE | 2018-11-26 09:48 | CON ---
DATE OF CONSULTATION: CHIEF COMPLAINT: Right leg pain. HISTORY OF PRESENT ILLNESS: Mr. Martin is a 73-year-old male, who has a history of generalized weakness and myasthenia gravis. The patient is a minimal ambulator at home with a walker. Three weeks ago, he fell and fractured his ankle. He was seen by Dr. Talamantes and was placed in a splint. He was treated nonoperatively. He went to rehab and then to a jail facility. Unfortunately, several hours after he arrived at the jail facility, he was transferred to the emergency department because he had pain in his leg. He has been admitted and is comfortable currently. He has had workup including repeat x-ray and ultrasound of the leg. His splint has been removed. He has a boot at the bedside, but is not currently wearing this. PAST MEDICAL HISTORY: Seizure disorder, peripheral neuropathy, myasthenia gravis, obesity, obstructive sleep apnea, and benign prostatic hypertrophy. ALLERGIES: TO MINOCYCLINE AND TETRACYCLINE. FAMILY MEDICAL HISTORY: Noncontributory. SOCIAL HISTORY: The patient does not use tobacco, alcohol, or drug use. REVIEW OF SYSTEMS: Positive for mild right leg pain, worse with activity. Otherwise, negative 10-point review of systems. PHYSICAL EXAMINATION: VITAL SIGNS: Temperature is 97.8, pulse is 58, respiratory rate is 18, oxygen saturation 92%, and blood pressure is 120/69. GENERAL: The patient is lying supine, alert and oriented, in no apparent distress. HEENT: Normocephalic, atraumatic. RESPIRATORY: Breathing comfortably. ABDOMEN: Soft, nontender, and nondistended. MUSCULOSKELETAL: The right leg has edema and ecchymosis. He is able to flex and extend the foot and ankle. His left leg has more mild edema as well. No skin abrasion or ulceration. Feet are warm and well perfused. IMAGING DATA: X-rays of the right ankle demonstrate a trimalleolar ankle fracture with minimal displacement of the lateral and medial malleolus. There is slight impaction of the posterior malleolus. There may be a talar fracture as well. Difficult to visualize. Ultrasound done this morning does show a DVT of the femoral vein on the right leg. IMPRESSION: Jared Martin is a 73-year-old male with myasthenia gravis and a subacute ankle fracture, now with deep venous thrombosis. PLAN: At this point, I think the patient should continue nonoperative treatment. He would be a high risk for complication if we performed ankle fracture surgery. His fracture is healing but is in the early stages. I recommended he wear his boot especially when up or out of bed. He could have his feet wrapped as he normally does for lymphedema. The right leg could be wrapped as well as the left. He does have a DVT and will need treatment for this as guided by the Internal Medicine Service. He should continue nonweightbearing. He should follow up in another 3 to 4 weeks for repeat ankle x-ray as an outpatient. He will need placement to a Jail Facility. Job ID: [id number]
--- NOTE | 2018-11-26 14:33 | PDOC.PN ---
- Subjective Encounter Start Date: 11/26/18 Encounter Start Time: 14:31 Patient lying in bed, currently pain controlled at the moment with boot in place. He denies chest pain, shortness of breath. Doppler showing new acute DVT right leg. - Objective Resuscitation Status - Order Detail: 11/25/18 20:39 Resuscitation Status Routine Co-Sign Provider: Resuscitation Status: FULL: Full Resuscitation Discussed with: patient Additional comments: is surrogate decison maker MAR Reviewed: Yes Vital Signs & Weight: Vital Signs (12 hours) Temp Pulse Resp BP Pulse Ox 11/26/18 11:26 98.0 F 59 L 22 H 119/70 96 11/26/18 08:00 92 L 11/26/18 03:25 97.8 F 58 L 18 120/69 92 L Weight Admit Weight 329 lb 5 oz Weight 329 lb 5 oz I&O: 11/25/18 11/26/18 11/27/18 06:59 06:59 06:59 Intake Total 480 Balance 480 Result Diagrams: 11/26/18 05:51 11/26/18 05:51 Radiology Reviewed by me: Yes Phys Exam - Physical Examination Constitutional: NAD HEENT: moist MMs, oral pharynx no lesions Neck: supple Respiratory: no wheezing, clear to auscultation bilateral Cardiovascular: RRR, no significant murmur Gastrointestinal: soft, positive bowel sounds Lymphedemia noted, boot in place on right foot Neurological: moves all 4 limbs Psychiatric: normal affect, A&O x 3 Skin: cap refill <2 seconds Dx/Plan (1) DVT (deep venous thrombosis) Code(s): I82.409 - ACUTE EMBOLISM AND THOMBOS UNSP DEEP VN UNSP LOWER EXTREMITY Status: Acute (2) Bimalleolar fracture of right ankle Code(s): S82.841A - DISPLACED BIMALLEOLAR FRACTURE OF RIGHT LOWER LEG, INIT Status: Acute (3) Morbid obesity Code(s): E66.01 - MORBID (SEVERE) OBESITY DUE TO EXCESS CALORIES Status: Acute (4) Myasthenia gravis Code(s): G70.00 - MYASTHENIA GRAVIS WITHOUT (ACUTE) EXACERBATION Status: Acute (5) Seizure disorder Code(s): G40.909 - EPILEPSY, UNSP, NOT INTRACTABLE, WITHOUT STATUS EPILEPTICUS Status: Acute (6) Alzheimer's dementia Code(s): G30.9 - ALZHEIMER'S DISEASE, UNSPECIFIED Status: Chronic (7) BPH (benign prostatic hyperplasia) Code(s): N40.0 - BENIGN PROSTATIC HYPERPLASIA WITHOUT LOWER URINRY TRACT SYMP Status: Chronic (8) Dyslipidemia Code(s): E78.5 - HYPERLIPIDEMIA, UNSPECIFIED Status: Chronic - Plan cont current plan of care, PT/OT * Continue Lovenox 1mg/kg for DVT * Patient nonweightbearing on right leg * He is non surgical per ortho surgery * Continue PT/OT * Monitor CBC, PT, PTT and INR * He will likely be transitioned to oral anticoagulant prior to discharge
[2018-11-26] MEDS: Atorvastatin Calcium 40 MG TAB PO SCH (20:31)
[2018-11-26] MEDS: Tamsulosin HCl 0.4 MG CAP PO SCH (20:31)
[2018-11-26] MEDS: Zolpidem Tartrate 5 MG TAB PO PRN (20:31)
[2018-11-27] MEDS: HYDROcodone/Acetaminophen 5/325 mg Tablet PO PRN ×4 (01:03→16:08)
[2018-11-27 06:25] LABS: Platelet Count 171 thou/uL (130-400)
[2018-11-27 06:26] LABS: #Basophils 0.1 thou/uL (0.0-0.2); #Eosinphils 0.6 thou/uL (0.0-0.7); #Lymphocytes 2.1 thou/uL (1.20-3.40); #Monocytes 0.5 thou/uL (0.11-0.59); %Basophils 2.2 % (0.0-1.0); %Eosinophils 10.9 % (0.0-10.0); %Lymphocytes 39.6 % (21.0-51.0); %Monocytes 10.1 % (0.0-10.0); %Neutrophils 37.3 % (42.0-75.0); Hemoglobin 12.8 g/dL (14.0-18.0); Mean Corpuscular HGB CONC 30.7 g/dL (32.0-36.0); Mean Corpuscular Hemoglobin 29.2 pg (27.0-31.0); Mean Corpuscular Volume 95.1 fL (78.0-98.0); Mean Platelet Volume 9.6 fL (7.4-10.4); Platelet Count 173 thou/uL (130-400); RBC Distribution Width 13.8 % (11.5-14.5); Red Blood Cell (RBC) Count 4.38 mill/uL (4.70-6.10); White Blood Cell (WBC) Count 5.3 thou/uL (4.8-10.8)
[2018-11-27 06:28] LABS: INR-International Normal Ratio 1.1; Prothrombin Time 14.3 SEC (12.0-14.7)
[2018-11-27 06:29] LABS: PTT 52.6 SEC (22.9-36.1)
[2018-11-27 06:52] LABS: Anion Gap 12 mmol/L (10-20); BUN (Urea Nitrogen) 20 mg/dL (8.4-25.7); Calc. Creatinine Clearance 144 mL/min (70-130); Calcium 9.7 mg/dL (7.8-10.44); Carbon Dioxide 31 mmol/L (23-31); Chloride 103 mmol/L (98-107); Estimated GFR-MDRD 77; Glucose 92 mg/dL (83-110); Potassium 4.3 mmol/L (3.5-5.1); Sodium 142 mmol/L (136-145)
[2018-11-27] MEDS: tiZANidine HCl 4 MG TAB PO SCH ×3 (07:47→20:11)
[2018-11-27] MEDS: Polyethylene Glycol 3350 17 GM Packet PO SCH ×2 (07:47→20:09)
[2018-11-27] MEDS: Aspirin 81 mg Enteric Coated Tablet PO SCH (07:48)
[2018-11-27] MEDS: Pregabalin 75 MG CAP PO SCH ×2 (07:48→20:10)
[2018-11-27] MEDS: Calcium Carbonate + Vit D 1 TAB PO SCH (07:48)
[2018-11-27] MEDS: Famotidine 20 MG TAB PO SCH ×2 (07:48→20:11)
[2018-11-27] MEDS: Pyridostigmine Bromide IR 60 MG TAB PO SCH ×4 (07:49→20:10)
[2018-11-27] MEDS: clonazePAM 1 MG TAB PO SCH ×2 (07:49→20:10)
[2018-11-27] MEDS: Enoxaparin Sodium 80 MG/0.8 ML SYRINGE SC SCH ×2 (07:49→20:13)
[2018-11-27] MEDS: Floranex Packet PO SCH (07:50)
[2018-11-27] MEDS: levETIRAcetam 500 mg/5 ml Oral Solution PO SCH ×2 (08:35→20:11)
--- NOTE | 2018-11-27 11:04 | PDOC.PN ---
- Subjective Encounter Start Date: 11/27/18 Encounter Start Time: 08:40 Patient seen and examined. No new complaints. No overnight events - Objective Resuscitation Status - Order Detail: 11/25/18 20:39 Resuscitation Status Routine Co-Sign Provider: Resuscitation Status: FULL: Full Resuscitation Discussed with: patient Additional comments: is surrogate decison maker MAR Reviewed: Yes Vital Signs & Weight: Vital Signs (12 hours) Temp Pulse Resp BP Pulse Ox 11/27/18 07:20 97.8 F 60 18 129/73 92 L Weight Admit Weight 329 lb 5 oz Weight 329 lb 5 oz I&O: 11/26/18 11/27/18 11/28/18 06:59 06:59 06:59 Intake Total 480 720 Balance 480 720 Result Diagrams: 11/27/18 04:25 11/27/18 04:25 Phys Exam - Physical Examination Constitutional: NAD HEENT: PERRLA, moist MMs, sclera anicteric Neck: no JVD, supple Respiratory: no wheezing, no rales, no rhonchi Cardiovascular: RRR, no significant murmur, no rub Gastrointestinal: soft, non-tender, no distention, positive bowel sounds Musculoskeletal: no edema, pulses present right leg with ankle brace Neurological: non-focal, normal sensation, moves all 4 limbs Lymphatic: no nodes Psychiatric: normal affect, A&O x 3 Skin: no rash, normal turgor Dx/Plan (1) DVT (deep venous thrombosis) Code(s): I82.409 - ACUTE EMBOLISM AND THOMBOS UNSP DEEP VN UNSP LOWER EXTREMITY Status: Acute (2) Bimalleolar fracture of right ankle Code(s): S82.841A - DISPLACED BIMALLEOLAR FRACTURE OF RIGHT LOWER LEG, INIT Status: Acute (3) Morbid obesity Code(s): E66.01 - MORBID (SEVERE) OBESITY DUE TO EXCESS CALORIES Status: Chronic (4) Myasthenia gravis Code(s): G70.00 - MYASTHENIA GRAVIS WITHOUT (ACUTE) EXACERBATION Status: Chronic (5) Peripheral neuropathy Code(s): G62.9 - POLYNEUROPATHY, UNSPECIFIED Status: Chronic (6) Seizure disorder Code(s): G40.909 - EPILEPSY, UNSP, NOT INTRACTABLE, WITHOUT STATUS EPILEPTICUS Status: Chronic (7) Alzheimer's dementia Code(s): G30.9 - ALZHEIMER'S DISEASE, UNSPECIFIED Status: Chronic (8) BPH (benign prostatic hyperplasia) Code(s): N40.0 - BENIGN PROSTATIC HYPERPLASIA WITHOUT LOWER URINRY TRACT SYMP Status: Chronic (9) Dyslipidemia Code(s): E78.5 - HYPERLIPIDEMIA, UNSPECIFIED Status: Chronic (10) Lumbar stenosis Code(s): M48.06 - SPINAL STENOSIS, LUMBAR REGION * DO NOT USE * Status: Chronic (11) Macrocytosis Code(s): D75.89 - OTHER SPECIFIED DISEASES OF BLOOD AND BLOOD-FORMING ORGANS Status: Chronic (12) Sleep apnea Code(s): G47.30 - SLEEP APNEA, UNSPECIFIED Status: Chronic (13) Vitamin D deficiency Code(s): E55.9 - VITAMIN D DEFICIENCY, UNSPECIFIED Status: Chronic - Plan cont current plan of care, PT/OT, social service assistant * continue lovenox * will change to elliquis tomorrow * medication reviewed as below * symptomatic treatment. Review of Systems - Review of Systems ENT: negative: Ear Pain, Ear Discharge, Nose Pain, Nose Discharge, Nose Congestion, Mouth Pain, Mouth Swelling, Throat Pain, Throat Swelling, Other Respiratory: negative: Cough, Dry, Shortness of Breath, Hemoptysis, SOB with Excertion, Pleuritic Pain, Sputum, Wheezing Cardiovascular: negative: chest pain, palpitations, orthopnea, paroxysmal nocturnal dyspnea, edema, light headedness, other Gastrointestinal: negative: Nausea, Vomiting, Abdominal Pain, Diarrhea, Constipation, Melena, Hematochezia, Other Genitourinary: negative: Dysuria, Frequency, Incontinence, Hematuria, Retention , Other Musculoskeletal: negative: Neck Pain, Shoulder Pain, Arm Pain, Back Pain, Hand Pain, Leg Pain, Foot Pain, Other - Medications/Allergies Allergies/Adverse Reactions: Allergies Allergy/AdvReac Type Severity Reaction Status Date / Time minocycline Allergy Verified 11/26/18 05:02 Tetracyclines Allergy Verified 11/25/18 20:38 Medications: Current Medications Acetaminophen (Tylenol) 650 mg PO Q4H PRN PRN Reason: Headache/Fever/Mild Pain (1-3) Hydrocodone Bitart/Acetaminophen ([place] 5/325) 1 tab PO Q4H PRN PRN Reason: Moderate Pain (4-6) Hydrocodone Bitart/Acetaminophen ([place] 5/325) 2 tab PO Q4H PRN PRN Reason: Severe Pain (7-10) Last Admin: 11/27/18 07:49 Dose: 2 tab Acidophilus (Floranex) 1 gm PO DAILY [facility] Last Admin: 11/27/18 07:50 Dose: 1 gm Aspirin (Ecotrin) 81 mg PO DAILY [facility] Last Admin: 11/27/18 07:48 Dose: 81 mg Atorvastatin Calcium (Lipitor) 40 mg PO HS [facility] Last Admin: 11/26/18 20:31 Dose: 40 mg Bisacodyl (Dulcolax) 10 mg [place] DAILY PRN PRN Reason: Constipation Calcium/Vitamin D (Caltrate 600 + Vit D) 1 tab PO DAILY [facility] Last Admin: 11/27/18 07:48 Dose: 1 tab Cholecalciferol (Vitamin D3) 1,000 units PO DAILY [facility] Last Admin: 11/27/18 07:47 Dose: 1,000 units Clonazepam (Klonopin) 1 mg PO BID [facility] Last Admin: 11/27/18 07:49 Dose: 1 mg Enoxaparin Sodium (Lovenox) 150 mg [place] 0900,2100 [facility] Last Admin: 11/27/18 07:49 Dose: 150 mg Famotidine (Pepcid) 20 mg PO BID [facility] Last Admin: 11/27/18 07:48 Dose: 20 mg Guaifenesin (Robitussin Sf) 1,000 mg PO Q4H PRN PRN Reason: Cough Levetiracetam (Keppra Oral Solution) 250 mg PO BID [facility] Last Admin: 11/27/18 08:35 Dose: 250 mg Metaxalone (Skelaxin) 800 mg PO TID PRN PRN Reason: Muscle Spasm Polyethylene Glycol (Miralax) 17 gm PO BID [facility] Last Admin: 11/27/18 07:47 Dose: 17 gm Pregabalin (Lyrica) 150 mg PO BID [facility] Last Admin: 11/27/18 07:48 Dose: 150 mg Pyridostigmine [place] (Mestinon) 60 mg PO QID [facility] Last Admin: 11/27/18 07:49 Dose: 60 mg Senna/Docusate Sodium (Senokot S) 2 tab PO BID PRN PRN Reason: Constipation Simethicone (Mylicon Chewable) 80 mg PO TID PRN PRN Reason: Gas Pain Sodium Chloride (Flush - Normal Saline) 10 ml IVF PRN PRN PRN Reason: Saline Flush Tamsulosin HCl (Flomax) 0.4 mg PO HS [facility] Last Admin: 11/26/18 20:31 Dose: 0.4 mg Tizanidine HCl (Zanaflex) 4 mg PO TID [facility] Last Admin: 11/27/18 07:47 Dose: 4 mg Zolpidem Tartrate (Ambien) 5 mg PO HSPRN PRN PRN Reason: Insomnia Last Admin: 11/26/18 20:31 Dose: 5 mg
[2018-11-27] MEDS: Atorvastatin Calcium 40 MG TAB PO SCH (20:10)
[2018-11-27] MEDS: Tamsulosin HCl 0.4 MG CAP PO SCH (20:11)
[2018-11-27] MEDS: Zolpidem Tartrate 5 MG TAB PO PRN (22:13)
[2018-11-28] MEDS: HYDROcodone/Acetaminophen 5/325 mg Tablet PO PRN ×5 (03:34→20:28)
[2018-11-28 04:57] LABS: #Eosinphils 0.5 thou/uL (0.0-0.7); #Lymphocytes 1.5 thou/uL (1.20-3.40); #Monocytes 0.5 thou/uL (0.11-0.59); #Neutrophils 2.5 thou/uL (1.40-6.50); %Basophils 0.8 % (0.0-1.0); %Eosinophils 9.5 % (0.0-10.0); %Lymphocytes 29.6 % (21.0-51.0); %Monocytes 10.1 % (0.0-10.0); %Neutrophils 49.9 % (42.0-75.0); Hemoglobin 13.2 g/dL (14.0-18.0); Mean Corpuscular HGB CONC 31.4 g/dL (32.0-36.0); Mean Corpuscular Hemoglobin 29.7 pg (27.0-31.0); Mean Corpuscular Volume 94.7 fL (78.0-98.0); Mean Platelet Volume 9.1 fL (7.4-10.4); Platelet Count 160 thou/uL (130-400); RBC Distribution Width 13.5 % (11.5-14.5); Red Blood Cell (RBC) Count 4.43 mill/uL (4.70-6.10)
[2018-11-28 05:16] LABS: Anion Gap 14 mmol/L (10-20); BUN (Urea Nitrogen) 16 mg/dL (8.4-25.7); Calc. Creatinine Clearance 165 mL/min (70-130); Calcium 9.9 mg/dL (7.8-10.44); Carbon Dioxide 27 mmol/L (23-31); Chloride 102 mmol/L (98-107); Estimated GFR-MDRD Greater than 90; Glucose 91 mg/dL (83-110); Potassium 3.8 mmol/L (3.5-5.1); Sodium 139 mmol/L (136-145)
[2018-11-28] MEDS: Polyethylene Glycol 3350 17 GM Packet PO SCH ×2 (08:12→20:20)
[2018-11-28] MEDS: Enoxaparin Sodium 80 MG/0.8 ML SYRINGE SC SCH (08:12)
[2018-11-28] MEDS: clonazePAM 1 MG TAB PO SCH ×2 (08:13→20:21)
[2018-11-28] MEDS: Pyridostigmine Bromide IR 60 MG TAB PO SCH ×4 (08:13→20:21)
[2018-11-28] MEDS: Pregabalin 75 MG CAP PO SCH ×2 (08:13→20:21)
[2018-11-28] MEDS: Aspirin 81 mg Enteric Coated Tablet PO SCH (08:14)
[2018-11-28] MEDS: tiZANidine HCl 4 MG TAB PO SCH ×3 (08:14→20:21)
[2018-11-28] MEDS: Famotidine 20 MG TAB PO SCH ×2 (08:14→20:21)
[2018-11-28] MEDS: Floranex Packet PO SCH (08:14)
[2018-11-28] MEDS: levETIRAcetam 500 mg/5 ml Oral Solution PO SCH ×2 (08:15→20:19)
[2018-11-28] MEDS: Calcium Carbonate + Vit D 1 TAB PO SCH (08:16)
--- NOTE | 2018-11-28 10:28 | PRG ---
DATE OF SERVICE: 11/28/2018 SUBJECTIVE: The patient is seen and examined at the bedside. He is concerned about his feet and blisters he had before and lymphedema treatment. He complains about pain in his right foot and poor appetite. OBJECTIVE: VITAL SIGNS: Blood pressure is 145/75, pulse is 81, respiratory rate is 18, O2 saturation is by nasal cannula. His temperature is 98.1. HEENT: His head is atraumatic and normocephalic. Eyes are PERRLA. Sclerae are nonicteric. Oral mucosa is moist. NECK: Supple. LUNGS: Clear. HEART: S1 and S2 are normal. No S3. No S4. No any murmur. ABDOMEN: Soft, nontender, and nondistended. Bowel sounds are present. No organomegaly. EXTREMITIES: His right foot is in ortho boot. His left foot shows 1+ peripheral edema. No blisters on his left foot. NEUROLOGIC: He is alert and oriented x4. There are no any motor or sensory deficits present. Cranial nerves are intact. LABORATORY DATA: Showed white count of 5.0, hemoglobin 13.2, hematocrit 41.9, platelet count is 160,000. Normal chemistry. IMPRESSION: 1. Right lower extremity deep venous thrombosis, acute. 2. Bimalleolar fracture of the right ankle, acute. 3. Myasthenia gravis. 4. Morbid obesity. 5. Seizure disorder. 6. BPH. 7. Dyslipidemia. 8. Lumbar stenosis. 9. Sleep apnea. 10. Vitamin D deficiency. PLAN: Apparently, we cannot do compressions for lymphedema in the hospital. We are going to switch him to apixaban 10 mg twice a day for 1 week, then 5 mg once a day for the rest of the time when he is going to be on anticoagulation. We are going to stop heparin. Continue pain management. He [facility], most likely tomorrow. Job ID: [id number]
[2018-11-28] MEDS: Atorvastatin Calcium 40 MG TAB PO SCH (20:21)
[2018-11-28] MEDS: Zolpidem Tartrate 5 MG TAB PO PRN (20:21)
[2018-11-28] MEDS: Apixaban 5 MG TAB PO SCH (20:21)
[2018-11-28] MEDS: Tamsulosin HCl 0.4 MG CAP PO SCH (20:21)
[2018-11-29] MEDS: HYDROcodone/Acetaminophen 5/325 mg Tablet PO PRN ×5 (01:39→20:27)
[2018-11-29] MEDS: clonazePAM 1 MG TAB PO SCH ×2 (08:46→20:26)
[2018-11-29] MEDS: Apixaban 5 MG TAB PO SCH ×2 (08:46→20:26)
[2018-11-29] MEDS: Pyridostigmine Bromide IR 60 MG TAB PO SCH ×4 (08:46→20:26)
[2018-11-29] MEDS: Aspirin 81 mg Enteric Coated Tablet PO SCH (08:46)
[2018-11-29] MEDS: Pregabalin 75 MG CAP PO SCH ×2 (08:47→20:26)
[2018-11-29] MEDS: levETIRAcetam 500 mg/5 ml Oral Solution PO SCH ×2 (08:48→20:25)
[2018-11-29] MEDS: tiZANidine HCl 4 MG TAB PO SCH ×3 (08:48→20:26)
[2018-11-29] MEDS: Famotidine 20 MG TAB PO SCH ×2 (08:48→20:26)
[2018-11-29] MEDS: Calcium Carbonate + Vit D 1 TAB PO SCH (08:48)
[2018-11-29] MEDS: Floranex Packet PO SCH (08:49)
[2018-11-29] MEDS: Polyethylene Glycol 3350 17 GM Packet PO SCH ×2 (08:49→20:27)
--- NOTE | 2018-11-29 10:40 | PRG ---
DATE OF SERVICE: 11/29/2018 SUBJECTIVE: Jared is a 73-year-old white male, who has been treated close for a right ankle bimalleolar fracture, treated with a boot. He has been hospitalized by the Medicine Service for intractable pain and what sounds like a right lower extremity deep vein thrombosis. He is still being treated with a long 3D boot. PHYSICAL EXAMINATION: He is neurovascularly intact. I see no abrasion in the skin. Boot is fitted appropriately by Therapy. IMPRESSION: Right ankle bimalleolar fracture. PLAN: Continue close treatment. Follow up with repeat radiographs in clinic in 7 to 10 days. Job ID: [id number]
--- NOTE | 2018-11-29 11:12 | PDOC.PN ---
- Subjective Encounter Start Date: 11/29/18 Encounter Start Time: 08:30 -: old records requested/rev Patient seen and examined. No new complaints. No overnight events - Objective Resuscitation Status - Order Detail: 11/25/18 20:39 Resuscitation Status Routine Co-Sign Provider: Resuscitation Status: FULL: Full Resuscitation Discussed with: patient Additional comments: is surrogate decison maker MAR Reviewed: Yes Vital Signs & Weight: Vital Signs (12 hours) Temp Pulse Resp BP Pulse Ox 11/29/18 08:00 94 L 11/29/18 07:21 97.8 F 64 14 126/71 94 L Weight Admit Weight 329 lb 5 oz Weight 329 lb 5 oz I&O: 11/28/18 11/29/18 11/30/18 06:59 06:59 06:59 Intake Total 1350 1480 Output Total 1050 900 Balance 300 580 Result Diagrams: 11/28/18 04:17 11/28/18 04:17 Phys Exam - Physical Examination Constitutional: NAD HEENT: PERRLA, moist MMs, sclera anicteric Neck: no JVD, supple Respiratory: no wheezing, no rales, no rhonchi Cardiovascular: RRR, no significant murmur, no rub Gastrointestinal: soft, non-tender, no distention, positive bowel sounds Musculoskeletal: no edema, pulses present right leg with brace Neurological: non-focal, normal sensation, moves all 4 limbs Lymphatic: no nodes Psychiatric: normal affect, A&O x 3 Skin: no rash, normal turgor Dx/Plan (1) DVT (deep venous thrombosis) Code(s): I82.409 - ACUTE EMBOLISM AND THOMBOS UNSP DEEP VN UNSP LOWER EXTREMITY Status: Acute (2) Bimalleolar fracture of right ankle Code(s): S82.841A - DISPLACED BIMALLEOLAR FRACTURE OF RIGHT LOWER LEG, INIT Status: Acute (3) Morbid obesity Code(s): E66.01 - MORBID (SEVERE) OBESITY DUE TO EXCESS CALORIES Status: Chronic (4) Myasthenia gravis Code(s): G70.00 - MYASTHENIA GRAVIS WITHOUT (ACUTE) EXACERBATION Status: Chronic (5) Peripheral neuropathy Code(s): G62.9 - POLYNEUROPATHY, UNSPECIFIED Status: Chronic (6) Seizure disorder Code(s): G40.909 - EPILEPSY, UNSP, NOT INTRACTABLE, WITHOUT STATUS EPILEPTICUS Status: Chronic (7) Alzheimer's dementia Code(s): G30.9 - ALZHEIMER'S DISEASE, UNSPECIFIED Status: Chronic (8) BPH (benign prostatic hyperplasia) Code(s): N40.0 - BENIGN PROSTATIC HYPERPLASIA WITHOUT LOWER URINRY TRACT SYMP Status: Chronic (9) Dyslipidemia Code(s): E78.5 - HYPERLIPIDEMIA, UNSPECIFIED Status: Chronic (10) Lumbar stenosis Code(s): M48.06 - SPINAL STENOSIS, LUMBAR REGION * DO NOT USE * Status: Chronic (11) Macrocytosis Code(s): D75.89 - OTHER SPECIFIED DISEASES OF BLOOD AND BLOOD-FORMING ORGANS Status: Chronic (12) Sleep apnea Code(s): G47.30 - SLEEP APNEA, UNSPECIFIED Status: Chronic (13) Vitamin D deficiency Code(s): E55.9 - VITAMIN D DEFICIENCY, UNSPECIFIED Status: Chronic - Plan cont current plan of care, PT/OT, social and human services assistant * pt does not want to go back to previous [facility], he prefers [facility] declined * medication reviewed as below * symptomatic treatment * continue elliquis for now * outpt ortho follow up. Review of Systems - Review of Systems ENT: negative: Ear Pain, Ear Discharge, Nose Pain, Nose Discharge, Nose Congestion, Mouth Pain, Mouth Swelling, Throat Pain, Throat Swelling, Other Respiratory: negative: Cough, Dry, Shortness of Breath, Hemoptysis, SOB with Excertion, Pleuritic Pain, Sputum, Wheezing Cardiovascular: negative: chest pain, palpitations, orthopnea, paroxysmal nocturnal dyspnea, edema, light headedness, other Gastrointestinal: negative: Nausea, Vomiting, Abdominal Pain, Diarrhea, Constipation, Melena, Hematochezia, Other Genitourinary: negative: Dysuria, Frequency, Incontinence, Hematuria, Retention , Other Musculoskeletal: negative: Neck Pain, Shoulder Pain, Arm Pain, Back Pain, Hand Pain, Leg Pain, Foot Pain, Other - Medications/Allergies Allergies/Adverse Reactions: Allergies Allergy/AdvReac Type Severity Reaction Status Date / Time minocycline Allergy Verified 11/26/18 05:02 Tetracyclines Allergy Verified 11/25/18 20:38 Medications: Current Medications Acetaminophen (Tylenol) 650 mg PO Q4H PRN PRN Reason: Headache/Fever/Mild Pain (1-3) Hydrocodone Bitart/Acetaminophen ([place] 5/325) 1 tab PO Q4H PRN PRN Reason: Moderate Pain (4-6) Hydrocodone Bitart/Acetaminophen ([place] 5/325) 2 tab PO Q4H PRN PRN Reason: Severe Pain (7-10) Last Admin: 11/29/18 08:53 Dose: 2 tab Acidophilus (Floranex) 1 gm PO DAILY [facility] Last Admin: 11/29/18 08:49 Dose: 1 gm Apixaban (Eliquis) 10 mg PO BID [facility] Last Admin: 11/29/18 08:46 Dose: 10 mg Aspirin (Ecotrin) 81 mg PO DAILY [facility] Last Admin: 11/29/18 08:46 Dose: 81 mg Atorvastatin Calcium (Lipitor) 40 mg PO HS [facility] Last Admin: 11/28/18 20:21 Dose: 40 mg Bisacodyl (Dulcolax) 10 mg [place] DAILY PRN PRN Reason: Constipation Calcium/Vitamin D (Caltrate 600 + Vit D) 1 tab PO DAILY [facility] Last Admin: 11/29/18 08:48 Dose: 1 tab Cholecalciferol (Vitamin D3) 1,000 units PO DAILY [facility] Last Admin: 11/29/18 08:48 Dose: 1,000 units Clonazepam (Klonopin) 1 mg PO BID [facility] Last Admin: 11/29/18 08:46 Dose: 1 mg Famotidine (Pepcid) 20 mg PO BID [facility] Last Admin: 11/29/18 08:48 Dose: 20 mg Guaifenesin (Robitussin Sf) 1,000 mg PO Q4H PRN PRN Reason: Cough Levetiracetam (Keppra Oral Solution) 250 mg PO BID [facility] Last Admin: 11/29/18 08:48 Dose: 250 mg Metaxalone (Skelaxin) 800 mg PO TID PRN PRN Reason: Muscle Spasm Polyethylene Glycol (Miralax) 17 gm PO BID [facility] Last Admin: 11/29/18 08:49 Dose: 17 gm Pregabalin (Lyrica) 150 mg PO BID [facility] Last Admin: 11/29/18 08:47 Dose: 150 mg Pyridostigmine [place] (Mestinon) 60 mg PO QID [facility] Last Admin: 11/29/18 08:46 Dose: 60 mg Senna/Docusate Sodium (Senokot S) 2 tab PO BID PRN PRN Reason: Constipation Simethicone (Mylicon Chewable) 80 mg PO TID PRN PRN Reason: Gas Pain Sodium Chloride (Flush - Normal Saline) 10 ml IVF PRN PRN PRN Reason: Saline Flush Tamsulosin HCl (Flomax) 0.4 mg PO [facility] Last Admin: 11/28/18 20:21 Dose: 0.4 mg Tizanidine HCl (Zanaflex) 4 mg PO TID [facility] Last Admin: 11/29/18 08:48 Dose: 4 mg Zolpidem Tartrate (Ambien) 5 mg PO HSPRN PRN PRN Reason: Insomnia Last Admin: 11/28/18 20:21 Dose: 5 mg
[2018-11-29] MEDS: Atorvastatin Calcium 40 MG TAB PO SCH (20:26)
[2018-11-29] MEDS: Zolpidem Tartrate 5 MG TAB PO PRN (20:26)
[2018-11-29] MEDS: Tamsulosin HCl 0.4 MG CAP PO SCH (20:26)
[2018-11-30] MEDS: HYDROcodone/Acetaminophen 5/325 mg Tablet PO PRN ×3 (05:23→14:21)
[2018-11-30] MEDS: Calcium Carbonate + Vit D 1 TAB PO SCH (08:56)
[2018-11-30] MEDS: Pregabalin 75 MG CAP PO SCH (08:56)
[2018-11-30] MEDS: clonazePAM 1 MG TAB PO SCH (08:56)
[2018-11-30] MEDS: Apixaban 5 MG TAB PO SCH (08:56)
[2018-11-30] MEDS: Aspirin 81 mg Enteric Coated Tablet PO SCH (08:56)
[2018-11-30] MEDS: tiZANidine HCl 4 MG TAB PO SCH ×2 (08:57→14:22)
[2018-11-30] MEDS: Pyridostigmine Bromide IR 60 MG TAB PO SCH ×3 (08:58→16:38)
[2018-11-30] MEDS: levETIRAcetam 500 mg/5 ml Oral Solution PO SCH (08:58)
[2018-11-30] MEDS: Polyethylene Glycol 3350 17 GM Packet PO SCH (08:59)
[2018-11-30] MEDS: Floranex Packet PO SCH (08:59)
[2018-11-30] MEDS: Famotidine 20 MG TAB PO SCH (12:31)
--- NOTE | 2018-11-30 13:34 | PDOC.EVN ---
Event Note - Event Note Event Note: DC SUMMARY #[id number]
[2018-11-30 17:06] VITALS: BP 110/68; TEMP 98.4
--- NOTE | 2018-12-01 04:40 | DIS ---
DATE OF ADMISSION: 11/26/2018 DATE OF DISCHARGE: 11/30/2018 ADMITTING DIAGNOSES: Deep vein thrombosis right lower extremity, lateral malleolar fracture, lymphedema. DISCHARGE DIAGNOSES: Deep vein thrombosis, right lower extremity lateral malleolar fracture, lymphedema. HOSPITAL COURSE: This is a 73-year-old male admitted to Internal Medicine Team, followed closely by Orthopedic Surgery as well. The patient was found to have a DVT in the outpatient arena and admitted to the hospital. The patient had a venogram done at the hospital as well and was found have a right lower extremity DVT. The patient was evaluated by Orthopedic Surgery and deemed not to be candidate for surgery at this point in time for his subacute ankle fracture. Physical therapy was started. Anticoagulation was started. The patient was to be discharged to a nursing home facility for lymphedema as well as physical therapy. The patient's condition was stable upon the time of discharge. The patient was advised to follow up with PCP within 1 week post nursing home facility stay. Case and plan discussed with patient at length. The patient's , Kusum Martin, was also contacted by phone at [phone]. Case and plan discussed with the patient and at length they understood and agreed with this plan. DISPOSITION: [facility]. MEDICATIONS: See MAR. ACTIVITY: As tolerated with assistance as needed. DIET: Low-fat low-calorie high-fiber diet. CONDITION: Stable. PROGNOSIS: Guarded. Once again, case and plan discussed with the patient and at length. They understood and agreed with this plan. Job ID: [id number]
== END 2018-11-30 17:34 | DRG 300 ==
LOC: ERS 16:38 → T4-A 18:39 → OBSVTOIN 11-26 09:31
PROVIDERS: ADMIT Internal Medicine; ATTEND Internal Medicine
DX: I82.4Z1 Acute embolism and thrombosis of unspecified deep veins of right distal lower extremity (principal); Z68.41 Body mass index [BMI] 40.0-44.9, adult; S82.841G Displaced bimalleolar fracture of right lower leg, subsequent encounter for closed fracture with delayed healing; G43.909 Migraine, unspecified, not intractable, without status migrainosus; G62.9 Polyneuropathy, unspecified; G70.00 Myasthenia gravis without (acute) exacerbation; N40.0 Benign prostatic hyperplasia without lower urinary tract symptoms; G47.33 Obstructive sleep apnea (adult) (pediatric); E78.5 Hyperlipidemia, unspecified; E66.01 Morbid (severe) obesity due to excess calories; G30.9 Alzheimer's disease, unspecified; M48.061 Spinal stenosis, lumbar region without neurogenic claudication; D75.89 Other specified diseases of blood and blood-forming organs; E55.9 Vitamin D deficiency, unspecified; F02.80 Dementia in other diseases classified elsewhere, unspecified severity, without behavioral disturbance, psychotic disturbance, mood disturbance, and anxiety; Z88.1 Allergy status to other antibiotic agents; Z88.8 Allergy status to other drugs, medicaments and biological substances; Z79.82 Long term (current) use of aspirin; Z79.899 Other long term (current) drug therapy
CPT/HCPCS: 36415; 80048; 80053; 85025; 85610; 85730; 93970; 96374; J1650; J2270

== ENCOUNTER 2019-02-08 20:23 | Inpatient (IN) | payer MEDICARE, BC ==
[~2019-02-08 20:23] MED LIST: ISOVUE-370 76%-LOCM 1 ML ONE
[2019-02-08 21:04] LABS: #Basophils 0.1 thou/uL (0.0-0.2); #Eosinphils 0.2 thou/uL (0.0-0.7); #Lymphocytes 3.2 thou/uL (1.20-3.40); #Monocytes 0.7 thou/uL (0.11-0.59); #Neutrophils 3.9 thou/uL (1.40-6.50); %Basophils 0.8 % (0.0-1.0); %Eosinophils 1.9 % (0.0-10.0); %Lymphocytes 39.6 % (21.0-51.0); %Monocytes 8.6 % (0.0-10.0); %Neutrophils 49.1 % (42.0-75.0); Hemoglobin 12.1 g/dL (14.0-18.0); Mean Corpuscular HGB CONC 32.1 g/dL (32.0-36.0); Mean Corpuscular Hemoglobin 28.7 pg (27.0-31.0); Mean Corpuscular Volume 89.5 fL (78.0-98.0); Mean Platelet Volume 8.1 fL (7.4-10.4); Platelet Count 204 thou/uL (130-400); RBC Distribution Width 14.6 % (11.5-14.5); Red Blood Cell (RBC) Count 4.21 mill/uL (4.70-6.10)
--- NOTE | 2019-02-08 21:18 | RAD ---
XR Chest 1 View Portable History: Shortness of breath Comparison: Radiograph 2017 Findings: Heart size is enlarged. There is be scarring throughout the lungs. No pneumothorax. Pulmonary arteries are mildly enlarged. No acute osseous abnormality. Impression: Mild cardiomegaly without overt edema.
[2019-02-08 21:24] LABS: ALT (SGPT) 10 U/L (8-55); AST (SGOT) 18 U/L (5-34); Albumin 3.8 g/dL (3.4-4.8); Alkaline Phosphatase 101 U/L (40-150); Anion Gap 16 mmol/L (10-20); BUN (Urea Nitrogen) 15 mg/dL (8.4-25.7); Bilirubin, Total 0.5 mg/dL (0.2-1.2); Calc. Creatinine Clearance 0 mL/min (70-130); Calcium 9.2 mg/dL (7.8-10.44); Carbon Dioxide 24 mmol/L (23-31); Chloride 104 mmol/L (98-107); Estimated GFR-MDRD 80; Globulin 2.8 g/dL (2.4-3.5); Glucose 121 mg/dL (83-110); Potassium 3.7 mmol/L (3.5-5.1); Protein, Total 6.6 g/dL (5.8-8.1); Sodium 140 mmol/L (136-145)
--- NOTE | 2019-02-08 21:54 | CT ---
CTA Angio Chest W WO Con History: Shortness of breath and wheezing Comparison: Radiograph same day Findings: CT angiogram chest performed after the intravenous ministration of contrast. 3-D rendering was provided. There are calcifications within the right main pulmonary artery as well as posterior basal segmental right lower lobe pulmonary artery. This was present back in 2015. No new intraluminal pulmonary arterial filling defect. There is near peripheral pleural scar in the r ight upper lobe with round atelectasis, similar to 2015. Enlarging from 2015 is a peripheral area of likely pleural scar with adjacent round atelectasis. Faint right lower lobe airspace consolidation with bronchial wall thickening. No pericardial effusion. Limited evaluation of the upper abdomen is unremarkable. No acute osseous ab normality. Limited evaluation of the upper abdomen is unremarkable. Impression: 1. 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 This is unchanged 2015. No new proximal segmental pulmonary arterial filling defect. 2. Multifocal peripheral pleural scarring around atelectasis with additional enlarging of a partially calcified peripheral pleural nodule left upper lobe. Given its interval size increase from 2015, follow-up CT the chest and 2-3 months is recommended to ensure stability. 3. Right lower lobe bronchial wall thickening and low-grade consolidation suggesting aspiration or in fection.
[2019-02-08] MEDS ORDERED: Ampicillin/Sulbactam 3 GM in Sodium Chloride 0.9% 100 ML IVPB SCH (22:45)
[2019-02-08 23:38] LABS: Troponin I Less than 0.010 ng/mL (< 0.028)
[2019-02-09] MEDS ORDERED: cloNIDine 0.1 MG TAB PO PRN (00:32)
[2019-02-09] MEDS ORDERED: Azithromycin 500 MG in Sodium Chloride 0.9% 250 ML 250 ML IVPB SCH (01:00)
[2019-02-09] MEDS ORDERED: Morphine 2 MG/ML SYRINGE IVP SCH (01:45)
[2019-02-09] MEDS ORDERED: Sodium Chloride 0.9% 1,000 ML IV SCH (02:15)
[2019-02-09 02:34] LABS: Troponin I Less than 0.010 ng/mL (< 0.028)
[2019-02-09] MEDS: Ampicillin/Sulbactam 3 GM in Sodium Chloride 0.9% 100 ML IVPB SCH ×3 (06:11→17:26)
[2019-02-09] MEDS ORDERED: Morphine 2 MG/ML SYRINGE SLOW IVP SCH (06:45)
[2019-02-09] MEDS ORDERED: Apixaban 5 MG TAB PO SCH (09:00)
[2019-02-09] MEDS: HYDROcodone/Acetaminophen 7.5/325 mg Tablet PO PRN ×3 (10:23→19:58)
[2019-02-09] MEDS: Pregabalin 75 MG CAP PO SCH ×2 (10:26→19:57)
[2019-02-09] MEDS: Apixaban 5 MG TAB PO SCH ×2 (10:26→19:56)
[2019-02-09] MEDS: clonazePAM 1 MG TAB PO SCH ×2 (10:27→19:59)
[2019-02-09] MEDS: Aspirin 81 mg Enteric Coated Tablet PO SCH (10:27)
[2019-02-09] MEDS: Pyridostigmine Bromide IR 60 MG TAB PO SCH ×4 (10:27→19:59)
[2019-02-09] MEDS: levETIRAcetam 500 MG TAB PO SCH ×2 (10:27→19:57)
--- NOTE | 2019-02-09 11:11 | RAD ---
Exam: Single view of the pelvis HISTORY: Pelvic and hip pain; recent fall COMPARISON: 04/19/2016 FINDINGS: A single view the pelvis shows no evidence of acute fracture or dislocation. Moderate degen erative changes seen in both hips, right greater than left. IMPRESSION: Bilateral hip osteoarthritis without evidence of acute osseous abnormality.
--- NOTE | 2019-02-09 12:06 | HP ---
CHIEF COMPLAINT: Shortness of breath. HISTORY OF PRESENT ILLNESS: Mr. Martin is a 73-year-old man, who has presented with shortness of breath. The patient states he has had a cold for the last 2 to 3 weeks and has noted a persistent cough productive for yellow sputum with no fevers, chills, or sweats. He denies any hemoptysis. He states he was transferred here from rehab. The patient was recently in the hospital from November 26, 2018, to November 30, 2018, during which time, he was found to have a right lower extremity DVT. [facility]. The patient has a history of bilateral ankle fractures and was deemed a poor candidate for surgery. Therefore, has been undergoing physical therapy. At the time of discharge, he had been switched to Eliquis 10 mg p.o. twice daily and has continued to receive Eliquis at 10 mg p.o. twice daily since then. He was evaluated in the emergency department yesterday evening and per ED notes, appeared to be in distress from his pain, but no evidence of respiratory distress. He was saturating between 91% and 95% on room air with no tachypnea or tachycardia noted. He had wheezing present on exam and underwent a chest x-ray that showed mild cardiomegaly without overt edema. He had a CT angiogram of the chest done showing calcifications involving the right main pulmonary artery, to possibly represent an old thrombus. There were similar findings involving the right posterior basilar artery. These were deemed stable since prior CT scan done in 2014. The patient was also noted to have an enlarging pleural left upper lobe nodule and repeat imaging was recommended with a CT in 2 to 3 months. Sputum cultures were obtained in the emergency department and so far are notable for rare gram-positive rods and rare white blood cells, these are preliminary results. He has remained afebrile and laboratory studies done showed a normal white blood count. Troponins were trended and negative x3. He had a lactic acid done, which was normal at 1.5. The patient was admitted for further observation and investigations. He was started on Unasyn in the emergency department for presumed pneumonia. He otherwise did not receive any other treatment. Today, the patient states his shortness of breath has resolved. In the emergency department, he did receive IV hydration at 120 mL an hour. Additional fluids were ordered at 100 mL/h and he has significant bilateral lower extremity edema. Therefore, the patient has been refusing further IV fluids. He denies any chest pain. States his main complaint at this moment is the severe pain involving both feet, which radiates up his legs into his groin. He states it is a 10/10 in severity and this has been ongoing. He last received injections to the pelvic joints about 1 month ago and states that it helped significantly. He states his pain is usually controlled with hydrocodone; however, to avoid constipation, he was recently put on Lyrica. The patient denies any recent falls. Denies any low back pain. No lower extremity weakness or numbness. He reports persisting lower extremity edema, but unable to say if it is worse since receiving fluids or if it is that his baseline now. He states he was doing well with physical therapy and slowly increasing his activity level with use of a walker, but more recently, he has had a decline due to severe pain on the bottom of his feet bilaterally. The patient does report recent pain on rotation with bilateral groin pain and suprapubic discomfort. He states he was given a cream by his cigarette paper tester, which he would like to continue. He states he does continue with an occasional cough that makes his general pain worse. Again, denies any chest pain. REVIEW OF SYSTEMS: All other review of systems are negative. PAST MEDICAL HISTORY: 1. DVT. 2. Hyperlipidemia. 3. History of generalized seizures. 4. Myasthenia gravis. 5. BPH. 6. Lymphedema. 7. Peripheral neuropathy. 8. Obstructive sleep apnea, uses CPAP. 9. History of neuromas involving both legs. 10. History of ankle fractures in October 2018. PAST SURGICAL HISTORY: 1. Low back surgery. 2. Inguinal hernia repair. 3. Right leg surgery. SOCIAL HISTORY: The patient denies any alcohol use, tobacco use, or drug use. ALLERGIES: 1. MINOCYCLINE. 2. TETRACYCLINE. CURRENT MEDICATIONS: 1. Eliquis. 2. Atorvastatin. 3. Lyrica. 4. Clonazepam. 5. Tizanidine. 6. Metaxalone. 7. Keppra. 8. Biscolax. 9. Calcium carbonate. 10. Clonidine. 11. Zolpidem. 12. [place]. 13. Cyanocobalamin. 14. Tamsulosin. PHYSICAL EXAMINATION: GENERAL: The patient appears well developed, obese, in moderate distress due to pain, but no respiratory distress. Able to speak in short sentences. VITAL SIGNS: Temperature 97.1, pulse 57, respirations 18, O2 saturation 94% on CPAP, blood pressure 166/78. HEENT: Normocephalic, atraumatic. Pupils are equal, round, reactive to light. Sclerae without icterus. Extraocular movements intact. Oropharynx is clear. NECK: Supple with full range of motion. LUNGS: Notable for expiratory wheezing. CARDIAC: Regular rate and rhythm. No murmurs, rubs, or gallops. ABDOMEN: Obese, soft, nontender, nondistended. Normoactive bowel sounds present. No guarding or rigidity. EXTREMITIES: Notable for bilateral swelling involving the legs and feet, nonpitting. Feet are currently being rested on multiple pillows and with bandages in place. NEUROLOGIC: Alert and oriented x3. Normal sensation. Strength 5/5 in all limbs. No neuro deficits. Speech normal. INVESTIGATIONS: As mentioned above in HPI. IMPRESSION AND PLAN: Mr. Martin is a pleasant 73-year-old gentleman, who presented with complaints of shortness of breath and has multiple underlying issues including recent bilateral ankle fractures, deemed to be an operative, and therefore undergoing physical therapy with chronic bilateral lower extremity edema and pain as well as the recently diagnosed deep venous thrombosis. He is being referred for further management and investigation of shortness of breath. 1. Shortness of breath, resolved. Chest x-ray with mild cardiomegaly, but no edema or signs of pneumonia. Started on antibiotics for presumed pneumonia. Awaiting sputum cultures. Add-on BNP given mild cardiomegaly. He has had an echo done in the past couple of months on November 04, 2018, showing normal ejection fraction of 55% to 60% with diastolic dysfunction, mild mitral regurgitation/tricuspid regurgitation/pulmonary regurgitation. No indications to repeat echo. Unclear if lower extremity edema has worsened since aggressive hydration given in the emergency department. The patient is refusing further IV fluids, which I agree should be held. We will order nebulizers. No crackles on exam at present. 2. General malaise. Respiratory viral panel requested given upper respiratory symptoms for the last 2 to 3 weeks with generalized malaise. 3. Cough. We will give guaifenesin and Tessalon Perles to help his cough. 4. History of DVT. Currently on Eliquis 10 mg p.o. bid, we will reduced to maintenance dose of Eliquis at 5 mg b.i.d. CTA negative for PE, but did mention changes involving calcifications of the right main pulmonary artery and right posterior basilar artery concerning for old thrombus, which appear stable since 2014. The patient is very alarmed by this as he states he was never told he had pulmonary embolisms in the past. A CT of the chest had been done in January 2015 for concerns of pneumonia and at that time, it was noted at that time he had a comet-tail like swelling projecting from the lesion with some crowding of the adjacent pulmonary vasculature and bronchials. No mention of PE and no CT angiogram was actually done at that time. 5. Penile pain/groin pain. We will obtain urinalysis and continue cream given by his cigarette paper tester recently. 6. Hypertension. Resume home medications and monitor blood pressure. 7. Deep venous thrombosis prophylaxis. We will continue anticoagulation he is already on. We will order MARIA ALEJANDRA hose stockings. 8. Gastrointestinal prophylaxis. 9. Code status full. His surrogate decision maker is his , Kusum Martin. The patient's case will be discussed further with Dr. Wilson for further recommendations. Job ID: [id number] [facility]
[2019-02-09 12:47] LABS: #Lymphocytes 0.8 thou/uL (1.20-3.40); #Monocytes 0.3 thou/uL (0.11-0.59); #Neutrophils 4.7 thou/uL (1.40-6.50); %Basophils 0.1 % (0.0-1.0); %Eosinophils 0.1 % (0.0-10.0); %Lymphocytes 14.6 % (21.0-51.0); %Monocytes 4.4 % (0.0-10.0); %Neutrophils 80.9 % (42.0-75.0); Hemoglobin 12.2 g/dL (14.0-18.0); Mean Corpuscular HGB CONC 32.4 g/dL (32.0-36.0); Mean Corpuscular Hemoglobin 29.2 pg (27.0-31.0); Mean Corpuscular Volume 90.1 fL (78.0-98.0); Mean Platelet Volume 8.1 fL (7.4-10.4); Platelet Count 206 thou/uL (130-400); RBC Distribution Width 14.3 % (11.5-14.5); Red Blood Cell (RBC) Count 4.17 mill/uL (4.70-6.10); White Blood Cell (WBC) Count 5.8 thou/uL (4.8-10.8)
[2019-02-09 12:59] LABS: INR-International Normal Ratio 1.2; PTT 39.8 SEC (22.9-36.1); Prothrombin Time 15.6 SEC (12.0-14.7)
[2019-02-09 13:07] LABS: Anion Gap 13 mmol/L (10-20); BUN (Urea Nitrogen) 13 mg/dL (8.4-25.7); Calc. Creatinine Clearance 156 mL/min (70-130); Calcium 9.4 mg/dL (7.8-10.44); Carbon Dioxide 25 mmol/L (23-31); Chloride 105 mmol/L (98-107); Estimated GFR-MDRD 89; Glucose 137 mg/dL (83-110); Sodium 139 mmol/L (136-145)
[2019-02-09] MEDS: Atorvastatin Calcium 40 MG TAB PO SCH (19:57)
[2019-02-09] MEDS: Tamsulosin HCl 0.4 MG CAP PO SCH (19:57)
[2019-02-09] MEDS: Docusate 100 MG CAP PO SCH (19:58)
[2019-02-09] MEDS: Zolpidem Tartrate 5 MG TAB PO SCH (19:59)
[2019-02-09] MEDS: Polyethylene Glycol 3350 17 GM Packet PO SCH (20:00)
[2019-02-10] MEDS: Ampicillin/Sulbactam 3 GM in Sodium Chloride 0.9% 100 ML IVPB SCH ×5 (00:21→22:05)
[2019-02-10] MEDS: HYDROcodone/Acetaminophen 7.5/325 mg Tablet PO PRN ×6 (00:48→23:37)
[2019-02-10 05:39] LABS: Platelet Count 194 thou/uL (130-400)
[2019-02-10 05:58] LABS: Calc. Creatinine Clearance 175 mL/min (70-130); Estimated GFR-MDRD Greater than 90
[2019-02-10] MEDS: Pyridostigmine Bromide IR 60 MG TAB PO SCH ×4 (08:29→22:03)
[2019-02-10] MEDS: Polyethylene Glycol 3350 17 GM Packet PO SCH ×2 (08:29→22:05)
[2019-02-10] MEDS: Apixaban 5 MG TAB PO SCH ×2 (08:29→22:07)
[2019-02-10] MEDS: Aspirin 81 mg Enteric Coated Tablet PO SCH (08:29)
[2019-02-10] MEDS: levETIRAcetam 500 MG TAB PO SCH ×2 (08:30→22:06)
[2019-02-10] MEDS: clonazePAM 1 MG TAB PO SCH ×2 (08:30→22:04)
[2019-02-10] MEDS: Docusate 100 MG CAP PO SCH ×3 (08:30→22:31)
[2019-02-10 08:34] LABS: #Eosinphils 0.1 thou/uL (0.0-0.7); #Lymphocytes 1.4 thou/uL (1.20-3.40); #Monocytes 0.4 thou/uL (0.11-0.59); #Neutrophils 2.9 thou/uL (1.40-6.50); %Basophils 0.4 % (0.0-1.0); %Eosinophils 1.2 % (0.0-10.0); %Lymphocytes 29.4 % (21.0-51.0); %Neutrophils 60.9 % (42.0-75.0); Hemoglobin 11.6 g/dL (14.0-18.0); Mean Corpuscular HGB CONC 31.6 g/dL (32.0-36.0); Mean Corpuscular Hemoglobin 28.4 pg (27.0-31.0); Mean Corpuscular Volume 89.7 fL (78.0-98.0); Mean Platelet Volume 7.7 fL (7.4-10.4); Platelet Count 181 thou/uL (130-400); RBC Distribution Width 14.4 % (11.5-14.5); White Blood Cell (WBC) Count 4.8 thou/uL (4.8-10.8)
[2019-02-10 08:52] LABS: Lactic Acid 2.3 mmol/L (0.5-2.2)
[2019-02-10 08:54] LABS: Anion Gap 14 mmol/L (10-20); BUN (Urea Nitrogen) 15 mg/dL (8.4-25.7); Calc. Creatinine Clearance 164 mL/min (70-130); Calcium 8.9 mg/dL (7.8-10.44); Carbon Dioxide 25 mmol/L (23-31); Chloride 106 mmol/L (98-107); Estimated GFR-MDRD Greater than 90; Glucose 117 mg/dL (83-110); Potassium 3.7 mmol/L (3.5-5.1); Sodium 141 mmol/L (136-145)
[2019-02-10] MEDS: Pregabalin 75 MG CAP PO SCH ×3 (09:50→22:04)
[2019-02-10] MEDS ORDERED: Simethicone Chewable 80 MG TAB PO PRN (15:08)
[2019-02-10] MEDS ORDERED: Diabetic Tussin 200 MG/10 ML UDCUP PO PRN (15:08)
--- NOTE | 2019-02-10 16:04 | PDOC.HOSPP ---
- Subjective Encounter Date: 02/10/19 Encounter Time: 15:30 Subjective: f/u for suspected PNA and dyspnea tx with Unasyn for RLL infiltrate. States feeling better overall. - Objective Vital Signs & Weight: Vital Signs (12 hours) Temp Pulse Resp BP Pulse Ox 02/10/19 14:19 62 16 96 02/10/19 12:35 97.9 F 64 16 148/65 H 99 02/10/19 10:38 76 18 98 02/10/19 08:00 98.3 F 72 16 157/68 H 99 02/10/19 06:46 62 17 98 Weight Admit Weight 315 lb Weight 315 lb I&O: 02/09/19 02/10/19 02/11/19 06:59 06:59 06:59 Intake Total 1740 Output Total 850 1601 Balance -850 139 Result Diagrams: 02/10/19 08:23 02/10/19 08:23 Additional Labs: Microbiology 02/09/19 Unknown Nasopharyngeal swab Respiratory Virus Panel (PCR) - Final 02/09/19 01:40 Bronchial Washing - Nares Respiratory Culture - Preliminary 02/08/19 22:44 Venous blood - Left Arm Blood Culture - Preliminary Gram Positive Cocci 02/08/19 22:35 Venous blood - Right Arm Blood Culture - Preliminary Specimen has been received and culture in progress. No Growth to date. Laboratory Tests 02/08/15 04/18/16 08/14/16 15:56 21:17 13:56 Lactic Acid B-Natriuretic Peptide 166.6 H 60.4 50.0 Procalcitonin 02/09/19 02/09/19 02/10/19 12:36 12:36 08:23 Lactic Acid 2.3 H B-Natriuretic Peptide 241.6 H Procalcitonin 0.04 Radiology Reviewed by me: Yes (Pelvic x-ray - neg; PCXR - chronic changes) EKG Reviewed by me: Yes (Tele - SR) ROS - Medication Medications: Active Medications Generic Name Dose Route Start Last Admin Trade Name Freq PRN Reason Stop Dose Admin Hydrocodone Bitart/Acetaminophen 1 tab 02/09/19 09:55 02/10/19 14:37 [place] 7.5/325 PO 1 tab Q4H PRN Administration Pain Albuterol/Ipratropium 3 ml 02/09/19 10:30 08/11/19 14:19 Duoneb NEB 3 ml [id number] ANURADHA Administration Aspirin 81 mg 02/09/19 09:00 02/10/19 08:29 Ecotrin PO 81 mg DAILY ANURADHA Administration Atorvastatin Calcium 40 mg 02/09/19 21:00 02/09/19 19:57 Lipitor PO 40 mg HS ANURADHA Administration Clonazepam 1 mg 02/09/19 09:00 02/10/19 08:30 Klonopin PO 1 mg BID ANURADHA Administration Docusate Sodium 100 mg 02/09/19 21:00 02/10/19 08:30 Colace PO 100 mg BID ANURADHA Administration Ampicillin Sodium/Sulbactam 100 mls @ 200 mls/hr 02/09/19 05:00 02/10/19 12: 26 Sodium 3 gm/ Sodium Chloride IVPB 100 mls 0500,1100,1700,2300 ANURADHA Administration Levetiracetam 250 mg 02/09/19 09:00 02/10/19 08:30 Keppra PO 250 mg BID ANURADHA Administration Polyethylene Glycol 17 gm 02/09/19 21:00 02/10/19 08:29 Miralax PO 17 gm BID ANURADHA Administration Pregabalin 150 mg 02/10/19 09:00 02/10/19 10:04 Lyrica PO 150 mg BID ANURADHA Administration Pyridostigmine [place] 60 mg 02/09/19 09:00 02/10/19 12:35 Mestinon PO 60 mg QID ANURADHA Administration Sodium Chloride 10 ml 02/09/19 21:00 02/10/19 08:31 Flush - Normal Saline IVF 10 ml Q12HR ANURADHA Administration Tamsulosin HCl 0.4 mg 02/09/19 21:00 02/09/19 19:57 Flomax PO 0.4 mg HS ANURADHA Administration Zolpidem Tartrate 5 mg 02/09/19 21:00 02/09/19 19:59 Ambien PO 5 mg HS ANURADHA Administration - Exam NAD, awake alert Eye: PERRL, anicteric sclera ENT: normocephalic atraumatic, no oropharyngeal lesions Neck: supple, symmetric, no JVD, no thyromegaly, no lymphadenopathy Heart: RRR, no murmur, no gallops, no rubs, normal peripheral pulses Respiratory: CTAB, no wheezes, no rales, no ronchi Gastrointestinal: soft, non-tender, non-distended, normal bowel sounds, no palpable masses Extremities: 1+ LE edema, 2+ LE edema Extremeties - other findings: LE TERRY wraps in place bilat Neurological: CN's grossly intact, no new deficit Musculoskeletal: generalized weakness Psychiatric: normal affect, A&O x 3 Hosp A/P (1) Bacterial pneumonia Code(s): J15.9 - UNSPECIFIED BACTERIAL PNEUMONIA Status: Acute Plan: RLL infiltrate, continue Unasyn, add Vancomycin until final cx identifications, Duonebs q4h, Incentive spirometry (2) Rhinovirus infection Code(s): B34.8 - OTHER VIRAL INFECTIONS OF UNSPECIFIED SITE Status: Acute Plan: Respiratory isolation/precautions, Duonebs, O2 prn (3) Chronic anticoagulation Code(s): Z79.01 - MCFP (CURRENT) USE OF ANTICOAGULANTS Status: Chronic Plan: Continue Eliquis 5mg BID (4) Bacteremia Code(s): R78.81 - BACTEREMIA Status: Acute Plan: Gm+ cocci, ? contaminant, continue Unasyn/Vancomycin pending final identification (5) Bimalleolar fracture of right ankle Code(s): S82.841A - DISPLACED BIMALLEOLAR FRACTURE OF RIGHT LOWER LEG, INIT Status: Chronic Plan: Partial weight bearing status with RW, PT/OT evaluation (6) Sleep apnea Code(s): G47.30 - SLEEP APNEA, UNSPECIFIED Status: Chronic - Plan continue antibiotics, PT/OT, social insurance administrator, respiratory therapy, incentive spirometry, out of bed/ambulate Stable currently Continue Duonebs q4h Add Vancomycin IV Continue Unasyn PT/OT evaluation for functional assessment Incentive spirometry q2h AM lab: BMP, CBC
[2019-02-10] MEDS ORDERED: Vancomycin HCl 1 GM in Premix Bag 1 BAG IVPB SCH (21:00)
[2019-02-10] MEDS: Zolpidem Tartrate 5 MG TAB PO SCH (22:04)
[2019-02-10] MEDS: Mupirocin 2% Ointment 22 GM Tube TOP SCH (22:05)
[2019-02-10] MEDS: tiZANidine HCl 4 MG TAB PO SCH (22:06)
[2019-02-10] MEDS: Atorvastatin Calcium 40 MG TAB PO SCH (22:07)
[2019-02-10] MEDS: Senokot S 8.6-50 MG TAB PO SCH (22:07)
[2019-02-10] MEDS: Tamsulosin HCl 0.4 MG CAP PO SCH (22:08)
[2019-02-11] MEDS: HYDROcodone/Acetaminophen 7.5/325 mg Tablet PO PRN ×5 (03:31→21:01)
[2019-02-11] MEDS: Ampicillin/Sulbactam 3 GM in Sodium Chloride 0.9% 100 ML IVPB SCH ×4 (05:24→22:32)
[2019-02-11 06:23] LABS: #Eosinphils 0.2 thou/uL (0.0-0.7); #Lymphocytes 1.7 thou/uL (1.20-3.40); #Monocytes 0.5 thou/uL (0.11-0.59); #Neutrophils 2.5 thou/uL (1.40-6.50); %Basophils 0.7 % (0.0-1.0); %Eosinophils 4.5 % (0.0-10.0); %Lymphocytes 34.7 % (21.0-51.0); %Monocytes 9.4 % (0.0-10.0); %Neutrophils 50.7 % (42.0-75.0); Mean Corpuscular HGB CONC 30.7 g/dL (32.0-36.0); Mean Corpuscular Hemoglobin 27.4 pg (27.0-31.0); Mean Corpuscular Volume 89.4 fL (78.0-98.0); Mean Platelet Volume 7.9 fL (7.4-10.4); Platelet Count 182 thou/uL (130-400); RBC Distribution Width 14.3 % (11.5-14.5); Red Blood Cell (RBC) Count 4.03 mill/uL (4.70-6.10)
[2019-02-11 06:44] LABS: Anion Gap 12 mmol/L (10-20); BUN (Urea Nitrogen) 17 mg/dL (8.4-25.7); Calc. Creatinine Clearance 147 mL/min (70-130); Calcium 9.1 mg/dL (7.8-10.44); Carbon Dioxide 27 mmol/L (23-31); Chloride 106 mmol/L (98-107); Estimated GFR-MDRD 84; Glucose 88 mg/dL (83-110); Potassium 4.1 mmol/L (3.5-5.1); Sodium 141 mmol/L (136-145)
[2019-02-11] MEDS: Apixaban 5 MG TAB PO SCH ×2 (08:19→21:00)
[2019-02-11] MEDS: tiZANidine HCl 4 MG TAB PO SCH ×3 (08:19→20:59)
[2019-02-11] MEDS: clonazePAM 1 MG TAB PO SCH ×2 (08:20→21:01)
[2019-02-11] MEDS: Senokot S 8.6-50 MG TAB PO SCH ×2 (08:20→20:59)
[2019-02-11] MEDS: Pregabalin 75 MG CAP PO SCH ×2 (08:21→21:01)
[2019-02-11] MEDS: Cyanocobalamin (Vitamin B-12) 1,000 MCG TAB PO SCH (08:22)
[2019-02-11] MEDS: Docusate 100 MG CAP PO SCH ×2 (08:23→21:00)
[2019-02-11] MEDS: levETIRAcetam 500 MG TAB PO SCH ×2 (08:23→21:00)
[2019-02-11] MEDS: Polyethylene Glycol 3350 17 GM Packet PO SCH ×2 (08:24→21:00)
[2019-02-11] MEDS: Pyridostigmine Bromide IR 60 MG TAB PO SCH ×4 (08:24→21:37)
[2019-02-11] MEDS: Fluticasone Propionate Nasal Spray 16 gm Bottle NASAL SCH (08:24)
[2019-02-11] MEDS: Aspirin 81 mg Enteric Coated Tablet PO SCH (08:27)
[2019-02-11] MEDS: Mupirocin 2% Ointment 22 GM Tube TOP SCH ×2 (08:36→21:02)
--- NOTE | 2019-02-11 15:18 | PDOC.HOSPP ---
- Subjective Encounter Date: 02/11/19 Encounter Time: 15:00 Subjective: f/u for acute dyspnea and RLL PNA on current Unasyn/Vancomycin. Using incentive spirometry consistently. - Objective Vital Signs & Weight: Vital Signs (12 hours) Temp Pulse Resp BP BP Pulse Ox 02/11/19 14:25 60 16 96 02/11/19 10:24 64 16 95 02/11/19 09:25 130/60 02/11/19 08:18 98.1 F 60 20 130/63 02/11/19 08:00 96 02/11/19 06:43 56 L 16 96 02/11/19 03:30 96.9 F L 60 20 155/71 H 98 Weight Admit Weight 315 lb Weight 315 lb I&O: 02/10/19 02/11/19 02/12/19 06:59 06:59 06:59 Intake Total 1740 1000 Output Total 1601 1100 Balance 139 -100 Result Diagrams: 02/11/19 06:00 02/11/19 06:00 Additional Labs: Microbiology 02/09/19 Unknown Nasopharyngeal swab Respiratory Virus Panel (PCR) - Final 02/09/19 01:40 Bronchial Washing - Nares Respiratory Culture - Final 02/09/19 01:40 Bronchial Washing - Nares Respiratory Culture - Preliminary 02/08/19 22:44 Venous blood - Left Arm Blood Culture - Preliminary Presumptive Micrococcus sp. 02/08/19 22:44 Venous blood - Left Arm Blood Culture - Preliminary Gram Positive Cocci 02/08/19 22:35 Venous blood - Right Arm Blood Culture - Preliminary Specimen has been received and culture in progress. No Growth to date. 02/08/19 22:35 Venous blood - Right Arm Blood Culture - Preliminary NO GROWTH AT 48 HOURS Laboratory Tests 02/08/15 04/18/16 08/14/16 15:56 21:17 13:56 Lactic Acid B-Natriuretic Peptide 166.6 H 60.4 50.0 Procalcitonin 02/09/19 02/09/19 02/10/19 12:36 12:36 08:23 Lactic Acid 2.3 H B-Natriuretic Peptide 241.6 H Procalcitonin 0.04 EKG Reviewed by me: Yes (Tele - SR) ROS - Medication Medications: Active Medications Generic Name Dose Route Start Last Admin Trade Name Freq PRN Reason Stop Dose Admin Hydrocodone Bitart/Acetaminophen 1 tab 08/10/19 09:55 02/11/19 12:38 [place] 7.5/325 PO 1 tab Q4H PRN Administration Pain Albuterol/Ipratropium 3 ml 02/09/19 10:30 02/11/19 14:25 Duoneb NEB 3 ml [id number] ANURADHA Administration Apixaban 5 mg 02/10/19 21:00 02/11/19 08:19 Eliquis PO 5 mg BID ANURADHA Administration Aspirin 81 mg 02/09/19 09:00 02/11/19 08:27 Ecotrin PO 81 mg DAILY ANURADHA Administration Atorvastatin Calcium 40 mg 02/09/19 21:00 02/10/19 22:07 Lipitor PO 40 mg HS ANURADHA Administration Cholecalciferol 1,000 units 02/11/19 09:00 02/11/19 08:19 Vitamin D3 PO 1,000 units DAILY ANURADHA Administration Clonazepam 1 mg 02/09/19 09:00 02/11/19 08:20 Klonopin PO 1 mg BID ANURADHA Administration Cyanocobalamin 1,000 mcg 02/11/19 09:00 02/11/19 08:22 Vitamin B-12 PO 1,000 mcg DAILY ANURADHA Administration Docusate Sodium 100 mg 02/09/19 21:00 02/11/19 08:23 Colace PO 100 mg BID ANURADHA Administration Fluticasone Propionate 0 gm 02/11/19 09:00 02/11/19 08:24 Flonase Nasal [place] NASAL Not Given DAILY ANURADHA Ampicillin Sodium/Sulbactam 100 mls @ 200 mls/hr 02/09/19 05:00 02/11/19 11: 25 Sodium 3 gm/ Sodium Chloride IVPB 100 mls 0500,1100,1700,2300 ANURADHA Administration Vancomycin HCl 2 gm/ Sodium 500 mls @ 250 mls/hr 02/10/19 18:00 02/11/19 06: 12 Chloride IVPB 500 mls 0600,1800 ANURADHA Administration Levetiracetam 250 mg 02/09/19 09:00 02/11/19 08:23 Keppra PO 250 mg BID ANURADHA Administration Mupirocin 0 gm 02/10/19 21:00 02/11/19 08:36 Bactroban 2% Ointment TOP 1 applic BID ANURADHA Administration Polyethylene Glycol 17 gm 02/09/19 21:00 02/11/19 08:24 Miralax PO 17 gm BID ANURADHA Administration Pregabalin 150 mg 02/10/19 09:00 02/11/19 08:21 Lyrica PO 150 mg BID ANURADHA Administration Pyridostigmine [place] 60 mg 02/09/19 09:00 02/11/19 12:39 Mestinon PO 60 mg QID ANURADHA Administration Senna/Docusate Sodium 2 tab 02/10/19 21:00 02/11/19 08:20 Senokot S PO 2 tab BID ANURADHA Administration Sodium Chloride 10 ml 02/09/19 21:00 02/11/19 08:45 Flush - Normal Saline IVF 10 ml Q12HR ANURADHA Administration Tamsulosin HCl 0.4 mg 02/09/19 21:00 02/10/19 22:08 Flomax PO 0.4 mg HS ANURADHA Administration Tizanidine HCl 4 mg 02/10/19 21:00 02/11/19 08:19 Zanaflex PO 4 mg TID ANURADHA Administration Zolpidem Tartrate 5 mg 02/09/19 21:00 02/10/19 22:04 Ambien PO 5 mg HS ANURADHA Administration - Exam NAD, awake alert Eye: PERRL, anicteric sclera ENT: normocephalic atraumatic, no oropharyngeal lesions Neck: supple, symmetric, no JVD, no thyromegaly, no lymphadenopathy Heart: RRR, no murmur, no gallops, no rubs, normal peripheral pulses Respiratory: no rales, rhonchi Gastrointestinal: soft, non-tender, non-distended, normal bowel sounds, no palpable masses Extremities: no cyanosis, 1+ LE edema Skin: normal turgor, no lesions Neurological: CN's grossly intact, no new deficit Musculoskeletal: normal tone, generalized weakness Psychiatric: normal affect, A&O x 3 Hosp A/P (1) Bacterial pneumonia Code(s): J15.9 - UNSPECIFIED BACTERIAL PNEUMONIA Status: Acute Plan: Continue Unasyn/Vancomycin another 24h then de-escalate coverage, continue Duonebs, pulmonary support (2) Rhinovirus infection Code(s): B34.8 - OTHER VIRAL INFECTIONS OF UNSPECIFIED SITE Status: Acute Plan: supportive, Flonase nasal spray daily (3) Chronic anticoagulation Code(s): Z79.01 - LEGAL SUPPORT SPECIALIST (CURRENT) USE OF ANTICOAGULANTS Status: Chronic Plan: Continue Eliquis BID (4) Bacteremia Code(s): R78.81 - BACTEREMIA Status: Acute Plan: Suspected skin contaminant (5) Bimalleolar fracture of right ankle Code(s): S82.841A - DISPLACED BIMALLEOLAR FRACTURE OF RIGHT LOWER LEG, INIT Status: Chronic (6) Sleep apnea Code(s): G47.30 - SLEEP APNEA, UNSPECIFIED Status: Chronic Plan: Nocturnal CPAP - Plan continue antibiotics, PT/OT, social worker school, out of bed/ambulate Stable currently Continue Duonebs q4h Continue Unasyn/Vancomycin IV PT/OT evaluation for functional assessment Incentive spirometry q2h Flonase 2sprays inh daily WCT for local care Add Mucinex 600mg BID
[2019-02-11] MEDS ORDERED: guaiFENesin ER 600 MG TAB PO SCH (16:00)
[2019-02-11] MEDS: Tamsulosin HCl 0.4 MG CAP PO SCH (20:59)
[2019-02-11] MEDS: Atorvastatin Calcium 40 MG TAB PO SCH (20:59)
[2019-02-11] MEDS: Zolpidem Tartrate 5 MG TAB PO SCH (20:59)
[2019-02-12] MEDS: HYDROcodone/Acetaminophen 7.5/325 mg Tablet PO PRN ×6 (00:55→21:35)
[2019-02-12 04:40] LABS: #Basophils 0.1 thou/uL (0.0-0.2); #Eosinphils 0.3 thou/uL (0.0-0.7); #Lymphocytes 1.8 thou/uL (1.20-3.40); #Monocytes 0.5 thou/uL (0.11-0.59); #Neutrophils 2.9 thou/uL (1.40-6.50); %Basophils 1.1 % (0.0-1.0); %Lymphocytes 31.5 % (21.0-51.0); %Monocytes 9.6 % (0.0-10.0); %Neutrophils 51.7 % (42.0-75.0); Mean Corpuscular HGB CONC 32.2 g/dL (32.0-36.0); Mean Corpuscular Volume 89.9 fL (78.0-98.0); Mean Platelet Volume 8.3 fL (7.4-10.4); Platelet Count 183 thou/uL (130-400); RBC Distribution Width 14.1 % (11.5-14.5); Red Blood Cell (RBC) Count 4.13 mill/uL (4.70-6.10); White Blood Cell (WBC) Count 5.5 thou/uL (4.8-10.8)
[2019-02-12 04:57] LABS: Anion Gap 13 mmol/L (10-20); BUN (Urea Nitrogen) 17 mg/dL (8.4-25.7); Calc. Creatinine Clearance 162 mL/min (70-130); Calcium 9.1 mg/dL (7.8-10.44); Carbon Dioxide 23 mmol/L (23-31); Chloride 108 mmol/L (98-107); Estimated GFR-MDRD Greater than 90; Glucose 87 mg/dL (83-110); Potassium 4.2 mmol/L (3.5-5.1); Sodium 140 mmol/L (136-145)
[2019-02-12] MEDS: Ampicillin/Sulbactam 3 GM in Sodium Chloride 0.9% 100 ML IVPB SCH ×4 (05:01→22:53)
[2019-02-12 05:03] LABS: Vancomycin, Trough 25.1 ug/mL
[2019-02-12] MEDS: Apixaban 5 MG TAB PO SCH ×2 (08:02→21:31)
[2019-02-12] MEDS: tiZANidine HCl 4 MG TAB PO SCH ×3 (08:03→21:40)
[2019-02-12] MEDS: guaiFENesin ER 600 MG TAB PO SCH ×2 (08:03→21:31)
[2019-02-12] MEDS: levETIRAcetam 500 MG TAB PO SCH ×2 (08:03→21:32)
[2019-02-12] MEDS: Cyanocobalamin (Vitamin B-12) 1,000 MCG TAB PO SCH (08:04)
[2019-02-12] MEDS: Pregabalin 75 MG CAP PO SCH ×2 (08:04→21:42)
[2019-02-12] MEDS: clonazePAM 1 MG TAB PO SCH ×2 (08:05→21:31)
[2019-02-12] MEDS: Aspirin 81 mg Enteric Coated Tablet PO SCH (08:05)
[2019-02-12] MEDS: Pyridostigmine Bromide IR 60 MG TAB PO SCH ×4 (08:05→21:34)
[2019-02-12] MEDS: Docusate 100 MG CAP PO SCH ×2 (08:06→21:31)
[2019-02-12] MEDS: Polyethylene Glycol 3350 17 GM Packet PO SCH ×2 (08:06→21:34)
[2019-02-12] MEDS: Senokot S 8.6-50 MG TAB PO SCH ×2 (08:06→21:35)
[2019-02-12] MEDS: Mupirocin 2% Ointment 22 GM Tube TOP SCH ×2 (08:17→21:41)
[2019-02-12] MEDS: Fluticasone Propionate Nasal Spray 16 gm Bottle NASAL SCH (09:48)
--- NOTE | 2019-02-12 10:59 | PQF ---
CLINICAL DOCUMENTATION IMPROVEMENT CLARIFICATION FORM: ICD-10 Updated PLEASE DO AN ADDENDUM TO THE PROGRESS NOTE WITH ANY DOCUMENTATION UPDATES OR ADDITIONS AND CARRY THROUGH TO DC SUMMARY. THANK YOU. DATE: 02/12/19 ATTN : DR. BOLAÑOS Please exercise your independent, professional judgment in responding to the clarification form. Clinical indicators are provided on the bottom of this form for your review Please check appropriate box(s): Conflicting documentation was noted in the Medical Record, please clarify if patient is being treated/monitored for: [ x ] PNEUMONIA [ ] CARDIOMEGALY [ ] Other diagnosis [ ] Unable to determine In addition, please specify: Present on Admission (POA): [ x] Yes [ ] No [ ] Unable to determine For continuity of documentation, please document condition throughout progress notes and discharge summary. Thank You. CLINICAL INDICATORS - SIGNS / SYMPTOMS/ LABS ER NOTE: "RLL PNEUMONIA" H&P: "SHORTNESS OF BREATH, RESOLVED. CHEST X-RAY WITH MILD CARDIOMEGALY, BUT NO EDEMA OR SIGNS OF PNEUMONIA." PROGRESS NOTE 02/10: "BACTERIAL PNEUMONIA, ACUTE" CHEST XRAY 02/08: "MILD CARDIOMEGALY WITHOUT OVERT EDEMA" CHEST CT 02/08: "RIGHT LOWER LOBE BRONCHIAL WALL THICKENING AND LOW-GRADE CONSOLIDATION SUGGESTING ASPIRATION OR INFECTION." RISKS: RECENT HOSPITALIZATION/SURGERY MYASTHENIA GRAVIS TREATMENT: DUONEBS (STATE DIRECTOR PER EMS-PRESENT) SOLU-MEDROL (STATE DIRECTOR PER EMS) IV FLUIDS (ER) IV UNASYN (ER-PRESENT) IV VANCOMYCIN (02/10-PRESENT) MUCINEX (STARTED 02/12) [employer] App[employer] Manager [employer] Win[employer] Viewer (This form is maintained as a part of the permanent medical record) 2014 [employer]. All Rights Reserved [email or web address] Office: [phone] [facility]
[2019-02-12 14:33] VITALS: BMI 38.3
[2019-02-12] MEDS: TESTOSTERONE 4 MG TD SCH ×2 (16:10→16:11)
--- NOTE | 2019-02-12 16:17 | PDOC.HOSPP ---
- Subjective Encounter Date: 02/12/19 Encounter Time: 16:15 Subjective: f/u for RLL PNA tx with Unasyn/Vancomycin. Overall doing ok and tolerating po intake. Foot pain with movement or standing. - Objective Vital Signs & Weight: Vital Signs (12 hours) Temp Pulse Resp BP Pulse Ox 02/12/19 15:52 98.4 F 74 18 156/67 H 97 02/12/19 11:59 97.9 F 62 18 137/63 02/12/19 10:15 70 16 95 02/12/19 08:00 94 L 02/12/19 07:54 96.2 F L 68 18 136/63 96 02/12/19 06:43 63 16 94 L Weight Admit Weight 315 lb Weight 315 lb I&O: 02/11/19 02/12/19 02/13/19 06:59 06:59 06:59 Intake Total 1000 Output Total 1100 Balance -100 Result Diagrams: 02/12/19 04:26 02/12/19 04:26 Additional Labs: Microbiology 02/09/19 Unknown Nasopharyngeal swab Respiratory Virus Panel (PCR) - Final 02/09/19 01:40 Bronchial Washing - Nares Respiratory Culture - Final 02/09/19 01:40 Bronchial Washing - Nares Respiratory Culture - Preliminary 02/08/19 22:44 Venous blood - Left Arm Blood Culture - Preliminary Presumptive Micrococcus sp. 02/08/19 22:44 Venous blood - Left Arm Blood Culture - Preliminary Gram Positive Cocci 02/08/19 22:35 Venous blood - Right Arm Blood Culture - Preliminary Specimen has been received and culture in progress. No Growth to date. 02/08/19 22:35 Venous blood - Right Arm Blood Culture - Preliminary NO GROWTH AT 48 HOURS Laboratory Tests 02/08/15 04/18/16 08/14/16 15:56 21:17 13:56 Lactic Acid B-Natriuretic Peptide 166.6 H 60.4 50.0 Procalcitonin 02/09/19 02/09/19 02/10/19 12:36 12:36 08:23 Lactic Acid 2.3 H B-Natriuretic Peptide 241.6 H Procalcitonin 0.04 EKG Reviewed by me: Yes (Tele - SR) ROS - Medication Medications: Active Medications Generic Name Dose Route Start Last Admin Trade Name Freq PRN Reason Stop Dose Admin Hydrocodone Bitart/Acetaminophen 1 tab 02/09/19 09:55 02/12/19 13:30 [place] 7.5/325 PO 1 tab Q4H PRN Administration Pain Albuterol/Ipratropium 3 ml 02/09/19 10:30 02/12/19 14:20 Duoneb NEB Not Given [id number] ANURADHA Apixaban 5 mg 02/10/19 21:00 02/12/19 08:02 Eliquis PO 5 mg BID ANURADHA Administration Aspirin 81 mg 02/09/19 09:00 02/12/19 08:05 Ecotrin PO 81 mg DAILY ANURADHA Administration Atorvastatin Calcium 40 mg 02/09/19 21:00 02/11/19 20:59 Lipitor PO 40 mg HS ANURADHA Administration Cholecalciferol 1,000 units 02/11/19 09:00 02/12/19 08:04 Vitamin D3 PO 1,000 units DAILY ANURADHA Administration Clonazepam 1 mg 02/09/19 09:00 02/12/19 08:05 Klonopin PO 1 mg BID ANURADHA Administration Cyanocobalamin 1,000 mcg 02/11/19 09:00 02/12/19 08:04 Vitamin B-12 PO 1,000 mcg DAILY ANURADHA Administration Docusate Sodium 100 mg 02/09/19 21:00 02/12/19 08:06 Colace PO 100 mg BID ANURADHA Administration Fluticasone Propionate 0 gm 02/11/19 09:00 02/12/19 09:48 Flonase Nasal [place] NASAL 2 spray DAILY ANURADHA Administration Guaifenesin 600 mg 02/12/19 09:00 02/12/19 08:03 Mucinex PO 600 mg Q12HR ANURADHA Administration Ampicillin Sodium/Sulbactam 100 mls @ 200 mls/hr 02/09/19 05:00 02/12/19 11: 59 Sodium 3 gm/ Sodium Chloride IVPB 100 mls 0500,1100,1700,2300 ANURADHA Administration Levetiracetam 250 mg 02/09/19 09:00 02/12/19 08:03 Keppra PO 250 mg BID ANURADHA Administration Mupirocin 0 gm 02/10/19 21:00 02/12/19 08:17 Bactroban 2% Ointment TOP 1 applic BID ANURADHA Administration Polyethylene Glycol 17 gm 02/09/19 21:00 02/12/19 08:06 Miralax PO 17 gm BID ANURADHA Administration Pregabalin 150 mg 02/10/19 09:00 02/12/19 08:04 Lyrica PO 150 mg BID ANURADHA Administration Pyridostigmine [place] 60 mg 02/09/19 09:00 02/12/19 12:00 Mestinon PO 60 mg QID ANURADHA Administration Senna/Docusate Sodium 2 tab 02/10/19 21:00 02/12/19 08:06 Senokot S PO 2 tab BID ANURADHA Administration Sodium Chloride 10 ml 02/09/19 21:00 02/12/19 08:06 Flush - Normal Saline IVF 10 ml Q12HR ANURADHA Administration Tamsulosin HCl 0.4 mg 02/09/19 21:00 02/11/19 20:59 Flomax PO 0.4 mg HS ANURADHA Administration Tizanidine HCl 4 mg 02/10/19 21:00 02/12/19 15:55 Zanaflex PO 4 mg TID ANURADHA Administration Zolpidem Tartrate 5 mg 02/09/19 21:00 02/11/19 20:59 Ambien PO 5 mg HS ANURADHA Administration - Exam NAD, awake alert Eye: PERRL, anicteric sclera ENT: normocephalic atraumatic, no oropharyngeal lesions Neck: supple, symmetric, no JVD, no thyromegaly, no lymphadenopathy Heart: RRR, no murmur, no gallops, no rubs, normal peripheral pulses Respiratory: CTAB, no wheezes, no rales, rhonchi Gastrointestinal: soft, non-tender, non-distended, normal bowel sounds, no palpable masses Extremities: no cyanosis, 1+ LE edema Skin: normal turgor Neurological: CN's grossly intact, no focal deficits, no new deficit Musculoskeletal: generalized weakness Musculoskeletal - other findings: bilat feet compression TERRY wraps Psychiatric: normal affect, A&O x 3 Hosp A/P (1) Bacterial pneumonia Code(s): J15.9 - UNSPECIFIED BACTERIAL PNEUMONIA Status: Acute Plan: RLL involvement, continue Unasyn, d/c Vancomycin, convert to po abx in 24h, pulm supportive mgmt (2) Rhinovirus infection Code(s): B34.8 - OTHER VIRAL INFECTIONS OF UNSPECIFIED SITE Status: Acute Plan: Supportive, resp precautions (3) Chronic anticoagulation Code(s): Z79.01 - SENIOR CARE (CURRENT) USE OF ANTICOAGULANTS Status: Chronic Plan: Continue Eliquis 5mg BID (4) Bacteremia Code(s): R78.81 - BACTEREMIA Status: Acute Plan: contaminant with micrococcus spp (5) Bimalleolar fracture of right ankle Code(s): S82.841A - DISPLACED BIMALLEOLAR FRACTURE OF RIGHT LOWER LEG, INIT Status: Chronic (6) Sleep apnea Code(s): G47.30 - SLEEP APNEA, UNSPECIFIED Status: Chronic Plan: Nocturnal CPAP - Plan plan discussed w/ family, continue antibiotics, PT/OT, social services director, respiratory therapy, incentive spirometry Stable currently Continue Duonebs q4h Continue Unasyn another 24h then convert to po abx D/C Vancomycin PT/OT evaluation for functional assessment Incentive spirometry q2h Flonase 2sprays inh daily WCT for local care Add Mucinex 600mg BID Likely d/c in 24h with HH with PT if working with PT
[2019-02-12] MEDS ORDERED: Vancomycin HCl 1.5 GM in Sodium Chloride 0.9% 250 ML 300 ML IVPB SCH (18:00)
[2019-02-12] MEDS: Atorvastatin Calcium 40 MG TAB PO SCH (21:31)
[2019-02-12] MEDS: Tamsulosin HCl 0.4 MG CAP PO SCH (21:35)
[2019-02-12] MEDS: Zolpidem Tartrate 5 MG TAB PO SCH (21:35)
[2019-02-13] MEDS: HYDROcodone/Acetaminophen 7.5/325 mg Tablet PO PRN ×6 (02:02→21:58)
[2019-02-13] MEDS: Ampicillin/Sulbactam 3 GM in Sodium Chloride 0.9% 100 ML IVPB SCH ×4 (05:56→23:36)
[2019-02-13] MEDS: Pyridostigmine Bromide IR 60 MG TAB PO SCH ×4 (09:11→21:32)
[2019-02-13] MEDS: guaiFENesin ER 600 MG TAB PO SCH ×2 (09:11→21:35)
[2019-02-13] MEDS: Polyethylene Glycol 3350 17 GM Packet PO SCH ×2 (09:11→21:30)
[2019-02-13] MEDS: Apixaban 5 MG TAB PO SCH ×2 (09:11→21:30)
[2019-02-13] MEDS: Aspirin 81 mg Enteric Coated Tablet PO SCH (09:11)
[2019-02-13] MEDS: Docusate 100 MG CAP PO SCH ×2 (09:11→21:30)
[2019-02-13] MEDS: tiZANidine HCl 4 MG TAB PO SCH ×3 (09:11→21:58)
[2019-02-13] MEDS: Senokot S 8.6-50 MG TAB PO SCH ×2 (09:12→21:34)
[2019-02-13] MEDS: Cyanocobalamin (Vitamin B-12) 1,000 MCG TAB PO SCH (09:12)
[2019-02-13] MEDS: levETIRAcetam 500 MG TAB PO SCH ×2 (09:12→21:31)
[2019-02-13] MEDS: clonazePAM 1 MG TAB PO SCH ×2 (09:12→21:30)
[2019-02-13] MEDS: Pregabalin 75 MG CAP PO SCH ×2 (09:16→21:59)
[2019-02-13] MEDS: Mupirocin 2% Ointment 22 GM Tube TOP SCH ×2 (09:20→21:31)
[2019-02-13] MEDS: Fluticasone Propionate Nasal Spray 16 gm Bottle NASAL SCH (09:20)
--- NOTE | 2019-02-13 12:59 | PDOC.HOSPP ---
- Subjective Encounter Date: 02/13/19 Encounter Time: 07:00 Subjective: Patient seen and examined. No new complaints. No overnight events - Objective Vital Signs & Weight: Vital Signs (12 hours) Temp Pulse Resp BP Pulse Ox 02/13/19 10:11 72 16 97 02/13/19 08:00 98.3 F 62 17 138/63 97 02/13/19 06:34 67 16 94 L 02/13/19 04:00 97.3 F L 56 L 18 116/58 L 92 L 02/13/19 02:23 75 16 96 Weight Admit Weight 315 lb Weight 315 lb I&O: 02/12/19 02/13/19 02/14/19 06:59 06:59 06:59 Intake Total 1020 Output Total 1950 Balance -930 Result Diagrams: 02/12/19 04:26 02/12/19 04:26 EKG Reviewed by me: Yes ROS - Review of Systems Constitutional: denies: fever, chills, sweats, weakness, malaise, other Eyes: denies: pain, vision change, conjunctivae inflammation, eyelid inflammation, redness, other ENT: denies: ear pain, ear discharge, nose pain, nose discharge, nose congestion , mouth pain, mouth swelling, throat pain, throat swelling, other Respiratory: denies: cough, dry, shortness of breath, hemoptysis, SOB with excertion, pleuritic pain, sputum, wheezing, other Cardiovascular: denies: chest pain, palpitations, orthopnea, paroxysmal noc. dyspnea, edema, light headedness, other Gastrointestinal: denies: nausea, vomitting, abdominal pain, diarrhea, constipation, melena, hematochezia, other Genitourinary: denies: dysuria, frequency, incontinence, hematuria, retention, other Musculoskeletal: denies: neck pain, shoulder pain, arm pain, back pain, hand pain, leg pain, foot pain, other Skin: denies: rash, lesions, chuy, bruising, other - Medication Medications: Active Medications Generic Name Dose Route Start Last Admin Trade Name Freq PRN Reason Stop Dose Admin Hydrocodone Bitart/Acetaminophen 1 tab 02/09/19 09:55 02/13/19 09:29 [place] 7.5/325 PO 1 tab Q4H PRN Administration Pain Albuterol/Ipratropium 3 ml 02/09/19 10:30 02/13/19 10:11 Duoneb NEB 3 ml [id number] ANURADHA Administration Apixaban 5 mg 02/10/19 21:00 02/13/19 09:11 Eliquis PO 5 mg BID ANURADHA Administration Aspirin 81 mg 02/09/19 09:00 02/13/19 09:11 Ecotrin PO 81 mg DAILY ANURADHA Administration Atorvastatin Calcium 40 mg 02/09/19 21:00 02/12/19 21:31 Lipitor PO 40 mg HS ANURADHA Administration Cholecalciferol 1,000 units 02/11/19 09:00 02/13/19 09:15 Vitamin D3 PO 1,000 units DAILY ANURADHA Administration Clonazepam 1 mg 02/09/19 09:00 02/13/19 09:12 Klonopin PO 1 mg BID ANURADHA Administration Cyanocobalamin 1,000 mcg 02/11/19 09:00 02/13/19 09:12 Vitamin B-12 PO 1,000 mcg DAILY ANURADHA Administration Docusate Sodium 100 mg 02/09/19 21:00 02/13/19 09:11 Colace PO 100 mg BID ANURADHA Administration Fluticasone Propionate 0 gm 02/11/19 09:00 02/13/19 09:20 Flonase Nasal [place] NASAL 2 spray DAILY ANURADHA Administration Guaifenesin 600 mg 02/12/19 09:00 02/13/19 09:11 Mucinex PO 600 mg Q12HR ANURADHA Administration Ampicillin Sodium/Sulbactam 100 mls @ 200 mls/hr 02/09/19 05:00 02/13/19 11: 30 Sodium 3 gm/ Sodium Chloride IVPB 100 mls 0500,1100,1700,2300 ANURADHA Administration Levetiracetam 250 mg 02/09/19 09:00 02/13/19 09:12 Keppra PO 250 mg BID ANURADHA Administration Mupirocin 0 gm 02/10/19 21:00 02/13/19 09:20 Bactroban 2% Ointment TOP 1 applic BID ANURADHA Administration Polyethylene Glycol 17 gm 02/09/19 21:00 02/13/19 09:11 Miralax PO 17 gm BID ANURADHA Administration Pregabalin 150 mg 02/12/19 21:00 02/13/19 09:16 Lyrica PO 150 mg BID ANURADHA Administration Pyridostigmine [place] 60 mg 02/09/19 09:00 02/13/19 09:11 Mestinon PO 60 mg QID ANURADHA Administration Senna/Docusate Sodium 2 tab 02/10/19 21:00 02/13/19 09:12 Senokot S PO 2 tab BID ANURADHA Administration Sodium Chloride 10 ml 02/09/19 21:00 02/13/19 09:14 Flush - Normal Saline IVF 10 ml Q12HR ANURADHA Administration Tamsulosin HCl 0.4 mg 02/09/19 21:00 02/12/19 21:35 Flomax PO 0.4 mg HS ANURADHA Administration Tizanidine HCl 4 mg 02/10/19 21:00 02/13/19 09:11 Zanaflex PO 4 mg TID ANURADHA Administration Zolpidem Tartrate 5 mg 02/09/19 21:00 02/12/19 21:35 Ambien PO 5 mg HS ANURADHA Administration - Exam NAD, awake alert Eye: PERRL, anicteric sclera ENT: normocephalic atraumatic, no oropharyngeal lesions Neck: supple, symmetric, no JVD, no thyromegaly Heart: RRR, no murmur, no gallops Respiratory: CTAB, no wheezes, no rales, no ronchi Gastrointestinal: soft, non-tender, non-distended Extremities: no cyanosis, no clubbing Skin: normal turgor, no lesions Neurological: CN's grossly intact, normal sensation to touch, no focal deficits Musculoskeletal: normal tone, normal strength Psychiatric: normal affect, normal behavior Hosp A/P (1) Bacterial pneumonia Code(s): J15.9 - UNSPECIFIED BACTERIAL PNEUMONIA Status: Acute Plan: culture negative, on Unasyn) (2) Chronic anticoagulation Code(s): Z79.01 - SHELTER (CURRENT) USE OF ANTICOAGULANTS Status: Chronic Plan: with elliquis (3) BPH (benign prostatic hyperplasia) Code(s): N40.0 - BENIGN PROSTATIC HYPERPLASIA WITHOUT LOWER URINRY TRACT SYMP Status: Chronic (4) Dyslipidemia Code(s): E78.5 - HYPERLIPIDEMIA, UNSPECIFIED Status: Chronic (5) Lumbar stenosis Code(s): M48.06 - SPINAL STENOSIS, LUMBAR REGION * DO NOT USE * Status: Chronic (6) Macrocytosis Code(s): D75.89 - OTHER SPECIFIED DISEASES OF BLOOD AND BLOOD-FORMING ORGANS Status: Chronic (7) Myasthenia gravis Code(s): G70.00 - MYASTHENIA GRAVIS WITHOUT (ACUTE) EXACERBATION Status: Chronic (8) Obesity (BMI 30-39.9) Code(s): E66.9 - OBESITY, UNSPECIFIED Status: Chronic (9) Peripheral neuropathy Code(s): G62.9 - POLYNEUROPATHY, UNSPECIFIED Status: Chronic (10) Seizure disorder Code(s): G40.909 - EPILEPSY, UNSP, NOT INTRACTABLE, WITHOUT STATUS EPILEPTICUS Status: Chronic (11) Sleep apnea Code(s): G47.30 - SLEEP APNEA, UNSPECIFIED Status: Chronic (12) Vitamin D deficiency Code(s): E55.9 - VITAMIN D DEFICIENCY, UNSPECIFIED Status: Chronic - Plan old records reviewed/req, continue antibiotics, PT/OT, foster care social worker I tried to update but unable to reach her pt does not want any rehab or snu option he will be discharged with home health tomorrow change to augmentin for another 5-7 days possible discharge tomorrow continue PT and IV antibiotics today
[2019-02-13] MEDS: Atorvastatin Calcium 40 MG TAB PO SCH (21:30)
[2019-02-13] MEDS: Tamsulosin HCl 0.4 MG CAP PO SCH (21:34)
[2019-02-13] MEDS: Zolpidem Tartrate 5 MG TAB PO SCH (21:34)
[2019-02-14] MEDS: HYDROcodone/Acetaminophen 7.5/325 mg Tablet PO PRN ×6 (02:12→22:22)
[2019-02-14] MEDS: Ampicillin/Sulbactam 3 GM in Sodium Chloride 0.9% 100 ML IVPB SCH ×2 (04:41→10:35)
[2019-02-14] MEDS: Pregabalin 75 MG CAP PO SCH ×2 (07:59→20:05)
[2019-02-14] MEDS: guaiFENesin ER 600 MG TAB PO SCH ×2 (07:59→20:04)
[2019-02-14] MEDS: Cyanocobalamin (Vitamin B-12) 1,000 MCG TAB PO SCH (08:00)
[2019-02-14] MEDS: Apixaban 5 MG TAB PO SCH ×2 (08:00→20:03)
[2019-02-14] MEDS: Aspirin 81 mg Enteric Coated Tablet PO SCH (08:00)
[2019-02-14] MEDS: Senokot S 8.6-50 MG TAB PO SCH ×2 (08:01→20:04)
[2019-02-14] MEDS: Docusate 100 MG CAP PO SCH ×2 (08:01→20:04)
[2019-02-14] MEDS: levETIRAcetam 500 MG TAB PO SCH ×2 (08:02→20:04)
[2019-02-14] MEDS: Polyethylene Glycol 3350 17 GM Packet PO SCH ×2 (08:02→20:05)
[2019-02-14] MEDS: Mupirocin 2% Ointment 22 GM Tube TOP SCH ×2 (08:02→20:07)
[2019-02-14] MEDS: clonazePAM 1 MG TAB PO SCH ×2 (08:02→20:04)
[2019-02-14] MEDS: Fluticasone Propionate Nasal Spray 16 gm Bottle NASAL SCH (08:03)
[2019-02-14] MEDS: tiZANidine HCl 4 MG TAB PO SCH ×3 (08:03→20:05)
[2019-02-14] MEDS: Pyridostigmine Bromide IR 60 MG TAB PO SCH ×4 (08:08→20:07)
--- NOTE | 2019-02-14 15:48 | PDOC.HOSPP ---
- Subjective Encounter Date: 02/14/19 Encounter Time: 10:30 Subjective: Patient seen and examined. No new complaints. No overnight events - Objective Vital Signs & Weight: Vital Signs (12 hours) Temp Pulse Resp BP BP Pulse Ox 02/14/19 14:15 68 16 95 02/14/19 10:55 62 16 96 02/14/19 08:00 98 02/14/19 07:41 97.8 F 68 22 H 131/65 93 L 02/14/19 07:11 65 16 96 02/14/19 04:00 97.9 F 66 16 130/72 97 Weight Admit Weight 315 lb Weight 315 lb I&O: 02/13/19 02/14/19 02/15/19 06:59 06:59 06:59 Intake Total 1020 1400 480 Output Total 1950 1150 Balance -930 250 480 Result Diagrams: 02/12/19 04:26 02/12/19 04:26 ROS - Review of Systems Constitutional: reports: weakness. denies: fever, chills, sweats, malaise, other Eyes: denies: pain, vision change, conjunctivae inflammation, eyelid inflammation, redness, other ENT: denies: ear pain, ear discharge, nose pain, nose discharge, nose congestion , mouth pain, mouth swelling, throat pain, throat swelling, other Respiratory: denies: cough, dry, shortness of breath, hemoptysis, SOB with excertion, pleuritic pain, sputum, wheezing, other Cardiovascular: denies: chest pain, palpitations, orthopnea, paroxysmal noc. dyspnea, edema, light headedness, other Gastrointestinal: denies: nausea, vomitting, abdominal pain, diarrhea, constipation, melena, hematochezia, other Genitourinary: denies: dysuria, frequency, incontinence, hematuria, retention, other Musculoskeletal: denies: neck pain, shoulder pain, arm pain, back pain, hand pain, leg pain, foot pain, other - Medication Medications: Active Medications Generic Name Dose Route Start Last Admin Trade Name Freq PRN Reason Stop Dose Admin Hydrocodone Bitart/Acetaminophen 1 tab 02/09/19 09:55 02/14/19 14:25 [place] 7.5/325 PO 1 tab Q4H PRN Administration Pain Albuterol/Ipratropium 3 ml 02/09/19 10:30 02/14/19 14:15 Duoneb NEB 3 ml [id number] ANURADHA Administration Apixaban 5 mg 02/10/19 21:00 02/14/19 08:00 Eliquis PO 5 mg BID ANURADHA Administration Aspirin 81 mg 02/09/19 09:00 02/14/19 08:00 Ecotrin PO 81 mg DAILY ANURADHA Administration Atorvastatin Calcium 40 mg 02/09/19 21:00 02/13/19 21:30 Lipitor PO 40 mg HS ANURADHA Administration Cholecalciferol 1,000 units 02/11/19 09:00 02/14/19 08:00 Vitamin D3 PO 1,000 units DAILY ANURADHA Administration Clonazepam 1 mg 02/09/19 09:00 02/14/19 08:02 Klonopin PO 1 mg BID ANURADHA Administration Cyanocobalamin 1,000 mcg 02/11/19 09:00 02/14/19 08:00 Vitamin B-12 PO 1,000 mcg DAILY ANURADHA Administration Docusate Sodium 100 mg 02/09/19 21:00 02/14/19 08:01 Colace PO 100 mg BID ANURADHA Administration Fluticasone Propionate 0 gm 02/11/19 09:00 02/14/19 08:03 Flonase Nasal [place] NASAL 2 spray DAILY ANURADHA Administration Guaifenesin 600 mg 02/12/19 09:00 02/14/19 07:59 Mucinex PO 600 mg Q12HR ANURADHA Administration Ampicillin Sodium/Sulbactam 100 mls @ 200 mls/hr 02/09/19 05:00 02/14/19 10: 35 Sodium 3 gm/ Sodium Chloride IVPB 100 mls 0500,1100,1700,2300 ANURADHA Administration Levetiracetam 250 mg 02/09/19 09:00 02/14/19 08:02 Keppra PO 250 mg BID ANURADHA Administration Mupirocin 0 gm 02/10/19 21:00 02/14/19 08:02 Bactroban 2% Ointment TOP 1 applic BID ANURADHA Administration Polyethylene Glycol 17 gm 02/09/19 21:00 02/14/19 08:02 Miralax PO 17 gm BID ANURADHA Administration Pregabalin 150 mg 02/12/19 21:00 02/14/19 07:59 Lyrica PO 150 mg BID ANURADHA Administration Pyridostigmine [place] 60 mg 02/09/19 09:00 02/14/19 12:29 Mestinon PO 60 mg QID ANURADHA Administration Senna/Docusate Sodium 2 tab 02/10/19 21:00 02/14/19 08:01 Senokot S PO 2 tab BID ANURADHA Administration Sodium Chloride 10 ml 02/09/19 21:00 02/14/19 08:03 Flush - Normal Saline IVF 10 ml Q12HR ANURADHA Administration Tamsulosin HCl 0.4 mg 02/09/19 21:00 02/13/19 21:34 Flomax PO 0.4 mg HS ANURADHA Administration Tizanidine HCl 4 mg 02/10/19 21:00 02/14/19 14:25 Zanaflex PO 4 mg TID ANURADHA Administration Zolpidem Tartrate 5 mg 02/09/19 21:00 02/13/19 21:34 Ambien PO 5 mg HS ANURADHA Administration - Exam NAD, awake alert Eye: PERRL, anicteric sclera ENT: normocephalic atraumatic, no oropharyngeal lesions Neck: supple, symmetric, no JVD Heart: RRR, no murmur, no gallops Respiratory: CTAB, no wheezes, no rales Gastrointestinal: soft, non-tender, non-distended Extremities: no cyanosis, no clubbing Skin: normal turgor, no lesions Neurological: CN's grossly intact, normal sensation to touch Musculoskeletal: normal tone, normal strength Psychiatric: normal affect, normal behavior Hosp A/P (1) Bacterial pneumonia Code(s): J15.9 - UNSPECIFIED BACTERIAL PNEUMONIA Status: Acute (2) Chronic anticoagulation Code(s): Z79.01 - [place]RE[place] (CURRENT) USE OF ANTICOAGULANTS Status: Chronic (3) BPH (benign prostatic hyperplasia) Code(s): N40.0 - BENIGN PROSTATIC HYPERPLASIA WITHOUT LOWER URINRY TRACT SYMP Status: Chronic (4) Dyslipidemia Code(s): E78.5 - HYPERLIPIDEMIA, UNSPECIFIED Status: Chronic (5) Lumbar stenosis Code(s): M48.06 - SPINAL STENOSIS, LUMBAR REGION * DO NOT USE * Status: Chronic (6) Macrocytosis Code(s): D75.89 - OTHER SPECIFIED DISEASES OF BLOOD AND BLOOD-FORMING ORGANS Status: Chronic (7) Myasthenia gravis Code(s): G70.00 - MYASTHENIA GRAVIS WITHOUT (ACUTE) EXACERBATION Status: Chronic (8) Obesity (BMI 30-39.9) Code(s): E66.9 - OBESITY, UNSPECIFIED Status: Chronic (9) Peripheral neuropathy Code(s): G62.9 - POLYNEUROPATHY, UNSPECIFIED Status: Chronic (10) Seizure disorder Code(s): G40.909 - EPILEPSY, UNSP, NOT INTRACTABLE, WITHOUT STATUS EPILEPTICUS Status: Chronic (11) Sleep apnea Code(s): G47.30 - SLEEP APNEA, UNSPECIFIED Status: Chronic (12) Vitamin D deficiency Code(s): E55.9 - VITAMIN D DEFICIENCY, UNSPECIFIED Status: Chronic - Plan old records reviewed/req, continue antibiotics, PT/OT pt does not want any rehab or snu option he will be discharged with home health tomorrow change to augmentin for another 5-7 days possible discharge tomorrow continue PT
[2019-02-14] MEDS: Atorvastatin Calcium 40 MG TAB PO SCH (20:03)
[2019-02-14] MEDS: Amoxicillin/Potassium Clav 875 MG TAB PO SCH (20:03)
[2019-02-14] MEDS: Zolpidem Tartrate 5 MG TAB PO SCH (20:05)
[2019-02-14] MEDS: Tamsulosin HCl 0.4 MG CAP PO SCH (20:05)
[2019-02-15] MEDS: HYDROcodone/Acetaminophen 7.5/325 mg Tablet PO PRN ×4 (05:43→20:51)
[2019-02-15] MEDS ORDERED: HYDROcodone/Acetaminophen 5/325 mg Tablet PO SCH (07:15)
[2019-02-15] MEDS: tiZANidine HCl 4 MG TAB PO SCH ×3 (09:10→20:34)
[2019-02-15] MEDS: Pregabalin 75 MG CAP PO SCH ×2 (09:11→20:36)
[2019-02-15] MEDS: Apixaban 5 MG TAB PO SCH ×2 (09:11→20:35)
[2019-02-15] MEDS: Aspirin 81 mg Enteric Coated Tablet PO SCH (09:11)
[2019-02-15] MEDS: Amoxicillin/Potassium Clav 875 MG TAB PO SCH ×2 (09:11→20:35)
[2019-02-15] MEDS: Pyridostigmine Bromide IR 60 MG TAB PO SCH ×4 (09:11→20:35)
[2019-02-15] MEDS: Senokot S 8.6-50 MG TAB PO SCH ×2 (09:11→20:36)
[2019-02-15] MEDS: Cyanocobalamin (Vitamin B-12) 1,000 MCG TAB PO SCH (09:12)
[2019-02-15] MEDS: levETIRAcetam 500 MG TAB PO SCH ×2 (09:12→20:35)
[2019-02-15] MEDS: clonazePAM 1 MG TAB PO SCH ×2 (09:12→20:36)
[2019-02-15] MEDS: guaiFENesin ER 600 MG TAB PO SCH ×2 (09:12→20:36)
[2019-02-15] MEDS: Fluticasone Propionate Nasal Spray 16 gm Bottle NASAL SCH (09:13)
[2019-02-15] MEDS: Polyethylene Glycol 3350 17 GM Packet PO SCH ×2 (09:13→20:36)
[2019-02-15] MEDS: Docusate 100 MG CAP PO SCH ×2 (09:13→20:35)
[2019-02-15] MEDS: Mupirocin 2% Ointment 22 GM Tube TOP SCH ×2 (09:13→20:37)
--- NOTE | 2019-02-15 14:40 | PDOC.HOSPP ---
- Subjective Encounter Date: 02/15/19 Encounter Time: 10:45 Subjective: no trouble breathing, has not amb much with PT yesterday, says will try today - Objective Vital Signs & Weight: Vital Signs (12 hours) Temp Pulse Resp BP Pulse Ox 02/15/19 10:22 80 14 02/15/19 08:00 96 02/15/19 07:42 98.2 F 59 L 16 119/69 96 02/15/19 07:29 64 17 96 02/15/19 06:00 98.1 F 74 20 136/73 93 L 02/15/19 03:45 95 Weight Admit Weight 315 lb Weight 315 lb I&O: 02/14/19 02/15/19 02/16/19 06:59 06:59 06:59 Intake Total 1400 720 Output Total 1150 1550 Balance 250 -830 Result Diagrams: 02/12/19 04:26 02/12/19 04:26 ROS - Medication Medications: Active Medications Generic Name Dose Route Start Last Admin Trade Name Freq PRN Reason Stop Dose Admin Hydrocodone Bitart/Acetaminophen 1 tab 02/09/19 09:55 02/15/19 12:34 [place] 7.5/325 PO 1 tab Q4H PRN Administration Pain Albuterol/Ipratropium 3 ml 02/09/19 10:30 02/15/19 10:22 Duoneb NEB 3 ml [id number] ANURADHA Administration Amoxicillin/Clavulanate Potassium 875 mg 02/14/19 21:00 02/15/19 09:11 Augmentin PO 875 mg Q12HR ANURADHA Administration Apixaban 5 mg 02/10/19 21:00 02/15/19 09:11 Eliquis PO 5 mg BID ANURADHA Administration Aspirin 81 mg 02/09/19 09:00 02/15/19 09:11 Ecotrin PO 81 mg DAILY ANURADHA Administration Atorvastatin Calcium 40 mg 02/09/19 21:00 02/14/19 20:03 Lipitor PO 40 mg HS ANURADHA Administration Cholecalciferol 1,000 units 02/11/19 09:00 02/15/19 09:12 Vitamin D3 PO 1,000 units DAILY ANURADHA Administration Clonazepam 1 mg 02/09/19 09:00 02/15/19 09:12 Klonopin PO 1 mg BID ANURADHA Administration Cyanocobalamin 1,000 mcg 02/11/19 09:00 02/15/19 09:12 Vitamin B-12 PO 1,000 mcg DAILY ANURADHA Administration Docusate Sodium 100 mg 02/09/19 21:00 02/15/19 09:13 Colace PO 100 mg BID ANURADHA Administration Fluticasone Propionate 0 gm 02/11/19 09:00 02/15/19 09:13 Flonase Nasal [place] NASAL 2 spray DAILY ANURADHA Administration Guaifenesin 600 mg 02/12/19 09:00 02/15/19 09:12 Mucinex PO 600 mg Q12HR ANURADHA Administration Levetiracetam 250 mg 02/09/19 09:00 02/15/19 09:12 Keppra PO 250 mg BID ANURADHA Administration Mupirocin 0 gm 02/10/19 21:00 02/15/19 09:13 Bactroban 2% Ointment TOP 1 applic BID ANURADHA Administration Polyethylene Glycol 17 gm 02/09/19 21:00 02/15/19 09:13 Miralax PO 17 gm BID ANURADHA Administration Pregabalin 150 mg 02/12/19 21:00 02/15/19 09:11 Lyrica PO 150 mg BID ANURADHA Administration Pyridostigmine [place] 60 mg 02/09/19 09:00 02/15/19 12:30 Mestinon PO 60 mg QID ANURADHA Administration Senna/Docusate Sodium 2 tab 02/10/19 21:00 02/15/19 09:11 Senokot S PO 2 tab BID ANURADHA Administration Sodium Chloride 10 ml 02/09/19 21:00 02/15/19 09:14 Flush - Normal Saline IVF 10 ml Q12HR ANURADHA Administration Tamsulosin HCl 0.4 mg 02/09/19 21:00 02/14/19 20:05 Flomax PO 0.4 mg HS ANURADHA Administration Tizanidine HCl 4 mg 02/10/19 21:00 02/15/19 09:10 Zanaflex PO 4 mg TID ANURADHA Administration Zolpidem Tartrate 5 mg 02/09/19 21:00 02/14/19 20:05 Ambien PO 5 mg HS ANURADHA Administration - Exam NAD, awake alert Eye: PERRL, anicteric sclera ENT: no oropharyngeal lesions, moist mucosa Neck: supple, no JVD Heart: RRR, no gallops Respiratory: no wheezes, no rales Gastrointestinal: soft, non-tender, normal bowel sounds Extremities: no cyanosis, 2+ LE edema Neurological: CN's grossly intact, no focal deficits Psychiatric: normal affect, A&O x 3 Hosp A/P (1) Bacterial pneumonia Code(s): J15.9 - UNSPECIFIED BACTERIAL PNEUMONIA Status: Acute (2) Rhinovirus infection Code(s): B34.8 - OTHER VIRAL INFECTIONS OF UNSPECIFIED SITE Status: Acute (3) Chronic anticoagulation Code(s): Z79.01 - FDC (CURRENT) USE OF ANTICOAGULANTS Status: Chronic (4) BPH (benign prostatic hyperplasia) Code(s): N40.0 - BENIGN PROSTATIC HYPERPLASIA WITHOUT LOWER URINRY TRACT SYMP Status: Chronic Qualifiers: Lower urinary tract symptom presence: symptoms absent Qualified Code(s): N40.0 - Benign prostatic hyperplasia without lower urinary tract symptoms (5) Dyslipidemia Code(s): E78.5 - HYPERLIPIDEMIA, UNSPECIFIED Status: Chronic (6) Myasthenia gravis Code(s): G70.00 - MYASTHENIA GRAVIS WITHOUT (ACUTE) EXACERBATION Status: Chronic (7) Obesity (BMI 30-39.9) Code(s): E66.9 - OBESITY, UNSPECIFIED Status: Chronic (8) Peripheral neuropathy Code(s): G62.9 - POLYNEUROPATHY, UNSPECIFIED Status: Chronic Qualifiers: Peripheral neuropathy type: polyneuropathy, unspecified Qualified Code(s): G62.9 - Polyneuropathy, unspecified (9) Seizure disorder Code(s): G40.909 - EPILEPSY, UNSP, NOT INTRACTABLE, WITHOUT STATUS EPILEPTICUS Status: Chronic (10) Sleep apnea Code(s): G47.30 - SLEEP APNEA, UNSPECIFIED Status: Chronic Qualifiers: Sleep apnea type: obstructive Qualified Code(s): G47.33 - Obstructive sleep apnea (adult) (pediatric) - Plan is on augmentin, eliquis, asp, keppra, lipitor, lyrica, mestinon, tizanidine hemostable dc plan in am
[2019-02-15] MEDS: Tamsulosin HCl 0.4 MG CAP PO SCH (20:35)
[2019-02-15] MEDS: Zolpidem Tartrate 5 MG TAB PO SCH (20:35)
[2019-02-15] MEDS: Atorvastatin Calcium 40 MG TAB PO SCH (20:36)
[2019-02-16] MEDS: HYDROcodone/Acetaminophen 7.5/325 mg Tablet PO PRN ×5 (00:42→20:29)
[2019-02-16] MEDS: Pregabalin 75 MG CAP PO SCH ×2 (07:58→20:29)
[2019-02-16] MEDS: Senokot S 8.6-50 MG TAB PO SCH ×2 (07:59→20:27)
[2019-02-16] MEDS: Amoxicillin/Potassium Clav 875 MG TAB PO SCH ×2 (07:59→20:27)
[2019-02-16] MEDS: Pyridostigmine Bromide IR 60 MG TAB PO SCH ×4 (07:59→20:27)
[2019-02-16] MEDS: Aspirin 81 mg Enteric Coated Tablet PO SCH (07:59)
[2019-02-16] MEDS: guaiFENesin ER 600 MG TAB PO SCH ×2 (07:59→20:26)
[2019-02-16] MEDS: tiZANidine HCl 4 MG TAB PO SCH ×3 (07:59→20:27)
[2019-02-16] MEDS: Apixaban 5 MG TAB PO SCH ×2 (07:59→20:27)
[2019-02-16] MEDS: Docusate 100 MG CAP PO SCH ×2 (08:00→20:27)
[2019-02-16] MEDS: Cyanocobalamin (Vitamin B-12) 1,000 MCG TAB PO SCH (08:00)
[2019-02-16] MEDS: Fluticasone Propionate Nasal Spray 16 gm Bottle NASAL SCH (08:00)
[2019-02-16] MEDS: clonazePAM 1 MG TAB PO SCH ×2 (08:00→20:27)
[2019-02-16] MEDS: Mupirocin 2% Ointment 22 GM Tube TOP SCH ×2 (08:00→20:30)
[2019-02-16] MEDS: levETIRAcetam 500 MG TAB PO SCH ×2 (08:00→20:28)
[2019-02-16] MEDS: Polyethylene Glycol 3350 17 GM Packet PO SCH ×2 (08:01→20:28)
--- NOTE | 2019-02-16 10:27 | EKG ---
Test Reason : SOB Blood Pressure : / mmHG Vent. Rate : 066 BPM Atrial Rate : 066 BPM P-R Int : 166 ms QRS Dur : 090 ms QT Int : 406 ms P-R-T Axes : 050 -08 -17 degrees QTc Int : 425 ms Normal sinus rhythm Moderate voltage criteria for LVH, may be normal variant Nonspecific ST and T wave abnormality Abnormal ECG Confirmed by COURTNEY CHILEL DO ([id number]), order editor STANISLAV DUNBAR ([id number]) on 02/16/2019 10:26:50 AM Referred By: GETACHEW Confirmed By:COURTNEY CHILEL DO
[2019-02-16] MEDS ORDERED: Clopidogrel Bisulfate 75 MG TAB ONE (17:40)
[2019-02-16 17:46] LABS: #Basophils 0.1 thou/uL (0.0-0.2); #Eosinphils 0.4 thou/uL (0.0-0.7); #Lymphocytes 1.8 thou/uL (1.20-3.40); #Monocytes 0.7 thou/uL (0.11-0.59); %Basophils 0.8 % (0.0-1.0); %Eosinophils 5.9 % (0.0-10.0); %Lymphocytes 25.7 % (21.0-51.0); %Monocytes 9.5 % (0.0-10.0); Hemoglobin 12.1 g/dL (14.0-18.0); Mean Corpuscular HGB CONC 32.4 g/dL (32.0-36.0); Mean Corpuscular Hemoglobin 28.4 pg (27.0-31.0); Mean Corpuscular Volume 87.9 fL (78.0-98.0); Mean Platelet Volume 7.7 fL (7.4-10.4); Platelet Count 174 thou/uL (130-400); RBC Distribution Width 14.4 % (11.5-14.5); Red Blood Cell (RBC) Count 4.25 mill/uL (4.70-6.10); White Blood Cell (WBC) Count 6.9 thou/uL (4.8-10.8)
[2019-02-16 18:07] LABS: ALT (SGPT) 14 U/L (8-55); AST (SGOT) 20 U/L (5-34); Albumin 3.8 g/dL (3.4-4.8); Alkaline Phosphatase 91 U/L (40-150); Anion Gap 11 mmol/L (10-20); BUN (Urea Nitrogen) 21 mg/dL (8.4-25.7); Bilirubin, Total 0.4 mg/dL (0.2-1.2); Calc. Creatinine Clearance 147 mL/min (70-130); Calcium 9.5 mg/dL (7.8-10.44); Carbon Dioxide 24 mmol/L (23-31); Chloride 104 mmol/L (98-107); Estimated GFR-MDRD 84; Glucose 112 mg/dL (83-110); Potassium 4.2 mmol/L (3.5-5.1); Protein, Total 6.8 g/dL (5.8-8.1); Sodium 135 mmol/L (136-145)
--- NOTE | 2019-02-16 19:26 | RAD ---
RADIOGRAPH CHEST 1 VIEW: DATE: 02/16/2019 HISTORY: 73-year-old male with dyspnea FINDINGS: There are no airspace densities, pulmonary edema, pneumothorax, or cardiomegaly. The lateral costophr enic angles are sharp. IMPRESSION: No acute cardiopulmonary findings.
[2019-02-16] MEDS: Atorvastatin Calcium 40 MG TAB PO SCH (20:26)
[2019-02-16] MEDS: Zolpidem Tartrate 5 MG TAB PO SCH (20:27)
[2019-02-16] MEDS: Tamsulosin HCl 0.4 MG CAP PO SCH (20:27)
[2019-02-17] MEDS: HYDROcodone/Acetaminophen 7.5/325 mg Tablet PO PRN ×3 (00:30→08:52)
[2019-02-17] MEDS: Aspirin 81 mg Enteric Coated Tablet PO SCH (08:51)
[2019-02-17] MEDS: tiZANidine HCl 4 MG TAB PO SCH ×3 (08:51→20:56)
[2019-02-17] MEDS: Senokot S 8.6-50 MG TAB PO SCH ×2 (08:51→20:56)
[2019-02-17] MEDS: Apixaban 5 MG TAB PO SCH ×2 (08:51→20:53)
[2019-02-17] MEDS: Pregabalin 75 MG CAP PO SCH ×2 (08:51→20:53)
[2019-02-17] MEDS: Pyridostigmine Bromide IR 60 MG TAB PO SCH ×4 (08:53→20:54)
[2019-02-17] MEDS: Cyanocobalamin (Vitamin B-12) 1,000 MCG TAB PO SCH (08:53)
[2019-02-17] MEDS: Polyethylene Glycol 3350 17 GM Packet PO SCH ×2 (08:53→20:57)
[2019-02-17] MEDS: clonazePAM 1 MG TAB PO SCH ×2 (08:53→20:57)
[2019-02-17] MEDS: Docusate 100 MG CAP PO SCH ×2 (08:53→20:56)
[2019-02-17] MEDS: guaiFENesin ER 600 MG TAB PO SCH ×2 (08:53→20:56)
[2019-02-17] MEDS: levETIRAcetam 500 MG TAB PO SCH ×2 (08:53→20:55)
[2019-02-17] MEDS: Fluticasone Propionate Nasal Spray 16 gm Bottle NASAL SCH (08:54)
[2019-02-17] MEDS: Mupirocin 2% Ointment 22 GM Tube TOP SCH ×2 (08:54→20:57)
--- NOTE | 2019-02-17 12:40 | PDOC.HOSPP ---
- Subjective Encounter Date: 02/17/19 Encounter Time: 10:45 Subjective: no sob or cough or chest pain or abd pain says he will try to walk more with PT today he reiterates this am that he does not like to go to rehab/swing/snf placements is also aware that he walked only 40ft and has lower extr lymphedema and weighs 300+lbs for his to help - Objective Vital Signs & Weight: Vital Signs (12 hours) Temp Pulse Resp BP BP Pulse Ox 02/17/19 08:00 98.7 F 66 16 133/77 95 02/17/19 07:40 94 L 02/17/19 06:30 75 16 97 02/17/19 04:29 98.7 F 69 18 130/75 94 L 02/17/19 02:54 67 16 95 Weight Admit Weight 315 lb Weight 315 lb I&O: 02/16/19 02/17/19 02/18/19 06:59 06:59 06:59 Intake Total 2360 2410 Balance 2360 2410 Result Diagrams: 02/16/19 17:37 02/16/19 17:37 ROS - Medication Medications: Active Medications Generic Name Dose Route Start Last Admin Trade Name Freq PRN Reason Stop Dose Admin Albuterol/Ipratropium 3 ml 02/09/19 10:30 02/17/19 10:30 Duoneb NEB Not Given [id number] ANURADHA Apixaban 5 mg 02/10/19 21:00 02/17/19 08:51 Eliquis PO 5 mg BID ANURADHA Administration Aspirin 81 mg 02/09/19 09:00 02/17/19 08:51 Ecotrin PO 81 mg DAILY ANURADHA Administration Atorvastatin Calcium 40 mg 02/09/19 21:00 02/16/19 20:26 Lipitor PO 40 mg HS ANURADHA Administration Cholecalciferol 1,000 units 02/11/19 09:00 02/17/19 08:51 Vitamin D3 PO 1,000 units DAILY ANURADHA Administration Clonazepam 1 mg 02/09/19 09:00 02/17/19 08:53 Klonopin PO 1 mg BID ANURADHA Administration Cyanocobalamin 1,000 mcg 02/11/19 09:00 02/17/19 08:53 Vitamin B-12 PO 1,000 mcg DAILY ANURADHA Administration Docusate Sodium 100 mg 02/09/19 21:00 02/17/19 08:53 Colace PO 100 mg BID ANURADHA Administration Fluticasone Propionate 0 gm 02/11/19 09:00 02/17/19 08:54 Flonase Nasal [place] NASAL 2 spray DAILY ANURADHA Administration Guaifenesin 600 mg 02/12/19 09:00 02/17/19 08:53 Mucinex PO 600 mg Q12HR ANURADHA Administration Levetiracetam 250 mg 02/09/19 09:00 02/17/19 08:53 Keppra PO 250 mg BID ANURADHA Administration Mupirocin 0 gm 02/10/19 21:00 02/17/19 08:54 Bactroban 2% Ointment TOP 1 applic BID ANURADHA Administration Polyethylene Glycol 17 gm 02/09/19 21:00 02/17/19 08:53 Miralax PO 17 gm BID ANURADHA Administration Pregabalin 150 mg 02/12/19 21:00 02/17/19 08:51 Lyrica PO 150 mg BID ANURADHA Administration Pyridostigmine [place] 60 mg 02/09/19 09:00 02/17/19 08:53 Mestinon PO 60 mg QID ANURADHA Administration Senna/Docusate Sodium 2 tab 02/10/19 21:00 02/17/19 08:51 Senokot S PO 2 tab BID ANURADHA Administration Sodium Chloride 10 ml 02/09/19 21:00 02/17/19 08:54 Flush - Normal Saline IVF 10 ml Q12HR ANURADHA Administration Tamsulosin HCl 0.4 mg 02/09/19 21:00 02/16/19 20:27 Flomax PO 0.4 mg HS ANURADHA Administration Tizanidine HCl 4 mg 02/10/19 21:00 02/17/19 08:51 Zanaflex PO 4 mg TID ANURADHA Administration Zolpidem Tartrate 5 mg 02/09/19 21:00 02/16/19 20:27 Ambien PO 5 mg HS ANURADHA Administration - Exam NAD, awake alert Eye: PERRL, anicteric sclera ENT: normocephalic atraumatic, moist mucosa Neck: supple, no JVD Heart: RRR, no murmur Respiratory: no wheezes, no rales Gastrointestinal: soft, non-tender, normal bowel sounds Extremities: no cyanosis, 2+ LE edema Neurological: CN's grossly intact, no focal deficits Psychiatric: normal affect, A&O x 3 Hosp A/P (1) Bacterial pneumonia Code(s): J15.9 - UNSPECIFIED BACTERIAL PNEUMONIA Status: Resolved (2) Rhinovirus infection Code(s): B34.8 - OTHER VIRAL INFECTIONS OF UNSPECIFIED SITE Status: Resolved (3) Chronic anticoagulation Code(s): 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 Status: Chronic (4) BPH (benign prostatic hyperplasia) Code(s): N40.0 - BENIGN PROSTATIC HYPERPLASIA WITHOUT LOWER URINRY TRACT SYMP Status: Chronic Qualifiers: Lower urinary tract symptom presence: symptoms absent Qualified Code(s): N40.0 - Benign prostatic hyperplasia without lower urinary tract symptoms (5) Dyslipidemia Code(s): E78.5 - HYPERLIPIDEMIA, UNSPECIFIED Status: Chronic (6) Myasthenia gravis Code(s): G70.00 - MYASTHENIA GRAVIS WITHOUT (ACUTE) EXACERBATION Status: Chronic (7) Obesity (BMI 30-39.9) Code(s): E66.9 - OBESITY, UNSPECIFIED Status: Chronic (8) Peripheral neuropathy Code(s): G62.9 - POLYNEUROPATHY, UNSPECIFIED Status: Chronic Qualifiers: Peripheral neuropathy type: polyneuropathy, unspecified Qualified Code(s): G62.9 - Polyneuropathy, unspecified (9) Seizure disorder Code(s): G40.909 - EPILEPSY, UNSP, NOT INTRACTABLE, WITHOUT STATUS EPILEPTICUS Status: Chronic (10) Sleep apnea Code(s): G47.30 - SLEEP APNEA, UNSPECIFIED Status: Chronic Qualifiers: Sleep apnea type: obstructive Qualified Code(s): G47.33 - Obstructive sleep apnea (adult) (pediatric) (11) Physical deconditioning Code(s): R53.81 - OTHER MALAISE Status: Acute - Plan continue eliquis, asp, keppra, lipitor, lyrica, mestinon, tizanidine, add motrin prn hemostable dc plan in am to home if he amb better with PT if not will need placement. His pna has resolved completely has deconditioning and has amb only 40ft with PT so far, he has refused placement so far.
[2019-02-17] MEDS: Ibuprofen 200 MG TAB PO PRN (13:18)
[2019-02-17] MEDS: Zolpidem Tartrate 5 MG TAB PO SCH (20:54)
[2019-02-17] MEDS: Atorvastatin Calcium 40 MG TAB PO SCH (20:56)
[2019-02-17] MEDS: Tamsulosin HCl 0.4 MG CAP PO SCH (20:56)
[2019-02-18] MEDS: Docusate 100 MG CAP PO SCH (08:04)
[2019-02-18] MEDS: tiZANidine HCl 4 MG TAB PO SCH (08:04)
[2019-02-18] MEDS: Cyanocobalamin (Vitamin B-12) 1,000 MCG TAB PO SCH (08:04)
[2019-02-18] MEDS: levETIRAcetam 500 MG TAB PO SCH (08:04)
[2019-02-18] MEDS: Apixaban 5 MG TAB PO SCH (08:05)
[2019-02-18] MEDS: Aspirin 81 mg Enteric Coated Tablet PO SCH (08:05)
[2019-02-18] MEDS: Pregabalin 75 MG CAP PO SCH (08:05)
[2019-02-18] MEDS: Fluticasone Propionate Nasal Spray 16 gm Bottle NASAL SCH (08:05)
[2019-02-18] MEDS: clonazePAM 1 MG TAB PO SCH (08:06)
[2019-02-18] MEDS: Ibuprofen 200 MG TAB PO PRN (08:06)
[2019-02-18] MEDS: Senokot S 8.6-50 MG TAB PO SCH (08:06)
[2019-02-18] MEDS: guaiFENesin ER 600 MG TAB PO SCH (08:06)
[2019-02-18] MEDS: Pyridostigmine Bromide IR 60 MG TAB PO SCH ×2 (08:07→13:13)
[2019-02-18] MEDS: Polyethylene Glycol 3350 17 GM Packet PO SCH (08:07)
[2019-02-18] MEDS: Mupirocin 2% Ointment 22 GM Tube TOP SCH (08:07)
[2019-02-18 08:42] VITALS: BP 149/81; TEMP 98.6
--- NOTE | 2019-02-18 12:27 | PDOC.HOSPP ---
- Subjective Encounter Date: 02/18/19 Encounter Time: 08:45 Subjective: is getting a bath reiterates he wants to go home eventually but not until he can amb well no sob or cough - Objective Vital Signs & Weight: Vital Signs (12 hours) Temp Pulse Resp BP Pulse Ox 02/18/19 08:41 98.6 F 79 20 149/81 H 96 02/18/19 08:00 96 Weight Admit Weight 315 lb Weight 315 lb I&O: 02/17/19 02/18/19 02/19/19 06:59 06:59 06:59 Intake Total 2410 1470 Output Total 450 Balance 2410 1020 Result Diagrams: 02/16/19 17:37 02/16/19 17:37 ROS - Medication Medications: Active Medications Generic Name Dose Route Start Last Admin Trade Name Freq PRN Reason Stop Dose Admin Apixaban 5 mg 02/10/19 21:00 02/18/19 08:05 Eliquis PO 5 mg BID ANURADHA Administration Aspirin 81 mg 02/09/19 09:00 02/18/19 08:05 Ecotrin PO 81 mg DAILY ANURADHA Administration Atorvastatin Calcium 40 mg 02/09/19 21:00 02/17/19 20:56 Lipitor PO 40 mg HS ANURADHA Administration Cholecalciferol 1,000 units 02/11/19 09:00 02/18/19 08:04 Vitamin D3 PO 1,000 units DAILY ANURADHA Administration Clonazepam 1 mg 02/09/19 09:00 02/18/19 08:06 Klonopin PO 1 mg BID ANURADHA Administration Cyanocobalamin 1,000 mcg 02/11/19 09:00 02/18/19 08:04 Vitamin B-12 PO 1,000 mcg DAILY ANURADHA Administration Docusate Sodium 100 mg 02/09/19 21:00 02/18/19 08:04 Colace PO 100 mg BID ANURADHA Administration Fluticasone Propionate 0 gm 02/11/19 09:00 02/18/19 08:05 Flonase Nasal [place] NASAL 2 spray DAILY ANURADHA Administration Guaifenesin 600 mg 02/12/19 09:00 02/18/19 08:06 Mucinex PO 600 mg Q12HR ANURADHA Administration Ibuprofen 400 mg 02/17/19 11:46 02/18/19 08:06 Motrin PO 400 mg Q8H PRN Administration Mild Pain (1-3) Levetiracetam 250 mg 02/09/19 09:00 02/18/19 08:04 Keppra PO 250 mg BID ANURADHA Administration Metaxalone 800 mg 02/10/19 15:08 02/17/19 18:23 Skelaxin PO 800 mg TID PRN Administration Muscle Spasm Mupirocin 0 gm 02/10/19 21:00 02/18/19 08:07 Bactroban 2% Ointment TOP 1 applic BID ANURADHA Administration Polyethylene Glycol 17 gm 02/09/19 21:00 02/18/19 08:07 Miralax PO 17 gm BID ANURADHA Administration Pregabalin 150 mg 02/12/19 21:00 02/18/19 08:05 Lyrica PO 150 mg BID ANURADHA Administration Pyridostigmine [place] 60 mg 02/09/19 09:00 02/18/19 08:07 Mestinon PO 60 mg QID ANURADHA Administration Senna/Docusate Sodium 2 tab 02/10/19 21:00 02/18/19 08:06 Senokot S PO 2 tab BID ANURADHA Administration Sodium Chloride 10 ml 02/09/19 21:00 02/18/19 08:08 Flush - Normal Saline IVF 10 ml Q12HR ANURADHA Administration Tamsulosin HCl 0.4 mg 02/09/19 21:00 02/17/19 20:56 Flomax PO 0.4 mg HS ANURADHA Administration Tizanidine HCl 4 mg 02/10/19 21:00 02/18/19 08:04 Zanaflex PO 4 mg TID ANURADHA Administration Zolpidem Tartrate 5 mg 02/09/19 21:00 02/17/19 20:54 Ambien PO 5 mg HS ANURADHA Administration - Exam NAD, awake alert Eye: PERRL, anicteric sclera ENT: normocephalic atraumatic, moist mucosa Neck: supple, no JVD Heart: RRR, no murmur Respiratory: no wheezes, no rales Gastrointestinal: soft, non-tender, normal bowel sounds Extremities: no cyanosis, 1+ LE edema Neurological: CN's grossly intact, no focal deficits Hosp A/P (1) Bacterial pneumonia Code(s): J15.9 - UNSPECIFIED BACTERIAL PNEUMONIA Status: Resolved (2) Rhinovirus infection Code(s): B34.8 - OTHER VIRAL INFECTIONS OF UNSPECIFIED SITE Status: Resolved (3) Chronic anticoagulation 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(s): 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 Status: Chronic (4) BPH (benign prostatic hyperplasia) Code(s): N40.0 - BENIGN PROSTATIC HYPERPLASIA WITHOUT LOWER URINRY TRACT SYMP Status: Chronic Qualifiers: Lower urinary tract symptom presence: symptoms absent Qualified Code(s): N40.0 - Benign prostatic hyperplasia without lower urinary tract symptoms (5) Dyslipidemia Code(s): E78.5 - HYPERLIPIDEMIA, UNSPECIFIED Status: Chronic (6) Myasthenia gravis Code(s): G70.00 - MYASTHENIA GRAVIS WITHOUT (ACUTE) EXACERBATION Status: Chronic (7) Obesity (BMI 30-39.9) Code(s): E66.9 - OBESITY, UNSPECIFIED Status: Chronic (8) Peripheral neuropathy Code(s): G62.9 - POLYNEUROPATHY, UNSPECIFIED Status: Chronic Qualifiers: Peripheral neuropathy type: polyneuropathy, unspecified Qualified Code(s): G62.9 - Polyneuropathy, unspecified (9) Seizure disorder Code(s): G40.909 - EPILEPSY, UNSP, NOT INTRACTABLE, WITHOUT STATUS EPILEPTICUS Status: Chronic (10) Sleep apnea Code(s): G47.30 - SLEEP APNEA, UNSPECIFIED Status: Chronic Qualifiers: Sleep apnea type: obstructive Qualified Code(s): G47.33 - Obstructive sleep apnea (adult) (pediatric) (11) Physical deconditioning Code(s): R53.81 - OTHER MALAISE Status: Acute - Plan continue eliquis, asp, keppra, lipitor, lyrica, mestinon, tizanidine, add motrin prn hemostable PT to mobilize as tolerated, at last eval he has req multiple (5) people to get him up and amb around 40ft with rw His pna has resolved completely clearly states he does not want to be placed anywhere. Is medically stable for discharge, has no acute care needs to stay in the hospital. Hope he ambulates well with PT to go home, not sure if his can help him ( pt weighs around 315lbs). I have encouraged him to exercise on bed when he is not with PT. I have d/w CM.
== END 2019-02-18 15:54 | disposition home or self-care (01) | DRG 194 ==
LOC: ERS 20:23 → 2NO 02-09 00:37 → OBSVTOIN 02-10 16:01 → T4-B 02-13 17:37
PROVIDERS: ADMIT Hospitalist; ATTEND Hospitalist
DX: J15.9 Unspecified bacterial pneumonia (principal); R78.81 Bacteremia; E78.5 Hyperlipidemia, unspecified; N40.0 Benign prostatic hyperplasia without lower urinary tract symptoms; G47.33 Obstructive sleep apnea (adult) (pediatric); B34.8 Other viral infections of unspecified site; M48.061 Spinal stenosis, lumbar region without neurogenic claudication; G70.00 Myasthenia gravis without (acute) exacerbation; G62.9 Polyneuropathy, unspecified; G40.909 Epilepsy, unspecified, not intractable, without status epilepticus; E55.9 Vitamin D deficiency, unspecified; E66.9 Obesity, unspecified; Z68.38 Body mass index [BMI] 38.0-38.9, adult; Z86.718 Personal history of other venous thrombosis and embolism; Z98.890 Other specified postprocedural states; Z88.0 Allergy status to penicillin; Z79.899 Other long term (current) drug therapy; Z79.01 Long term (current) use of anticoagulants
CPT/HCPCS: 36415; 71045; 71275; 72170; 80048; 80053; 80202; 82565; 83605; 83880; 84145; 84484; 85014; 85018; 85025; 85049; 85610; 85730; 87040; 87070; 87149; 87205; 87633; 93005; 94640; 94760; 96365; J0295; J0456; J2270; J3370; J3490; J7050; J7620; Q9966

== ENCOUNTER 2019-02-28 15:22 | Observation (INO) | payer MEDICARE, BC ==
[2019-02-28] MEDS ORDERED: HYDROcodone/Acetaminophen 7.5/325 mg Tablet ONE (15:50)
--- NOTE | 2019-02-28 15:59 | RAD ---
Portable frontal chest radiograph: 02/28/2019 COMPARISON: 02/16/2019 HISTORY: Dizziness, weakness FINDINGS: There is increased linear interstitial density and pulmonary hyperinflation. Heart and medi astinal contours are stable. No pneumothorax or pleural fluid. No focal consolidation or alveolar edema. There is a subtle nodular density in the lateral superior aspect of the left lung apex, better assess ed on the 02/08/2019 CT angiogram of the chest. IMPRESSION: Chronic findings as detailed above. No acute findings are seen.
[2019-02-28 16:05] LABS: #Eosinphils 0.3 thou/uL (0.0-0.7); #Lymphocytes 1.6 thou/uL (1.20-3.40); #Monocytes 0.3 thou/uL (0.11-0.59); #Neutrophils 4.1 thou/uL (1.40-6.50); %Basophils 0.2 % (0.0-1.0); %Lymphocytes 24.8 % (21.0-51.0); %Monocytes 5.4 % (0.0-10.0); %Neutrophils 64.7 % (42.0-75.0); Hemoglobin 14.3 g/dL (14.0-18.0); Mean Corpuscular HGB CONC 32.5 g/dL (32.0-36.0); Mean Corpuscular Hemoglobin 28.7 pg (27.0-31.0); Mean Corpuscular Volume 88.2 fL (78.0-98.0); Platelet Count 189 thou/uL (130-400); RBC Distribution Width 14.9 % (11.5-14.5); White Blood Cell (WBC) Count 6.3 thou/uL (4.8-10.8)
[2019-02-28 16:38] LABS: ALT (SGPT) 15 U/L (8-55); AST (SGOT) 23 U/L (5-34); Albumin 4.1 g/dL (3.4-4.8); Alkaline Phosphatase 104 U/L (40-150); Anion Gap 13 mmol/L (10-20); BUN (Urea Nitrogen) 26 mg/dL (8.4-25.7); Bilirubin, Total 0.2 mg/dL (0.2-1.2); CK (CPK) 53 U/L (30-200); Calc. Creatinine Clearance 0 mL/min (70-130); Calcium 9.4 mg/dL (7.8-10.44); Carbon Dioxide 26 mmol/L (23-31); Chloride 105 mmol/L (98-107); Estimated GFR-MDRD 44; Globulin 3.3 g/dL (2.4-3.5); Glucose 107 mg/dL (83-110); Potassium 4.7 mmol/L (3.5-5.1); Protein, Total 7.4 g/dL (5.8-8.1); Sodium 139 mmol/L (136-145)
--- NOTE | 2019-02-28 18:13 | RAD ---
Radiograph right ankle 3 views: DATE: 02/28/2019 Time: 5:44 PM HISTORY: 73-year-old male with right ankle pain COMPARISON: 11/25/2018 FINDINGS: The splint has been removed. There has been interval blurring of the oblique linear lucency of the di stal fibular metaphysis, with minimal displacement. No change in alignment. Diffuse osteopenia of the foot and ankle, no acute fracture identified, but the osteopenia could mask a fracture. Ankle mor tise is congruent. Talar dome is not collapsed. IMPRESSION: 1. Interval healing changes of late subacute oblique, spiral fracture of distal fibular metaphysis. 2. Severe disuse osteopenia
[2019-02-28 19:47] LABS: Bilirubin Negative (Negative); Blood, Urine Negative (Negative); Clarity Clear (Clear); Glucose, Urine (Dipstick) Normal (Negative); Leukocyte Negative Leu/uL (Negative); Nitrite Negative (Negative); Protein, Urine (Dipstick) Negative (Neg-Trace); Urobilinogen Normal mg/dL (Less than 2)
[2019-02-28] MEDS ORDERED: Ondansetron PF 4 MG/2 ML Vial IVP PRN (21:11)
[2019-02-28] MEDS ORDERED: Acetaminophen 325 MG TAB PO PRN (21:11)
[2019-02-28] MEDS ORDERED: hydrALAZINE 20 MG/ML VIAL SLOW IVP PRN (21:11)
[2019-02-28] MEDS ORDERED: Ondansetron ODT 4 MG TAB PO PRN (21:11)
[2019-02-28 21:27] VITALS: BMI 37.2
[2019-02-28] MEDS: Sodium Chloride 0.9% 1,000 ML IV SCH (23:19)
[2019-02-28] MEDS: Famotidine 20 MG TAB PO SCH (23:20)
[2019-02-28] MEDS ORDERED: Pyridostigmine Bromide IR 60 MG TAB PO SCH (23:30)
--- NOTE | 2019-03-01 01:53 | HP ---
PRIMARY CARE PHYSICIAN: Dr. Lizandro Burns. CHIEF COMPLAINT: Sudden onset of generalized weakness and feeling lightheaded. HISTORY OF PRESENT ILLNESS: Mr. Martin is a pleasant 73-year-old gentleman who has a history of myasthenia gravis. He says he was diagnosed about 4 years ago, but thinks he has been having symptoms for decades. He sees Dr. Enriquez for this. He says that he has been more or less in and out of the hospital recently and he had recently fell and broke his ankle and then was transferred to rehab where he stayed there for 3 weeks and then was transferred to [facility] for another 2 months and had completed his rehabilitation and was doing some ambulation with a walker and was discharged home and says that he has been walking around the house with a walker, but he does admit to having a bit of pain in his feet due to he says blisters which cause him quite a bit of pain, but he was on his way to a doctor's appointment, when he stood up with a walker and suddenly felt extremely weak and felt like he was going to pass out and he was basically almost unresponsive. His took his blood pressure and noticed that it was about 90 systolic. She called the EMS and when they arrived, they checked his blood pressure and it was low at about 60 systolic and they brought him to the ER for evaluation. In the ER, he had a NIF test which was negative, but it was noted that his blood pressure was on the lower normal side, it was starting to recover and he is being placed in observation. The patient says that he had always been told by Dr. Dillon, whom he had been seeing prior to Dr. Enriquez that if he ever fell or got extremely weak that he should come to the emergency room, which is what he did. He denies having any fevers or chills. No recent change in medications. No cough. No congestion. He denies any shortness of breath and says that he never has any respiratory symptoms, which he says is unusual with his myasthenia is always in his legs. He denies having any congestion, any trouble speaking or fatiguing with speech, or any trouble swallowing. REVIEW OF SYSTEMS: CONSTITUTIONAL: Again, no fevers or chills, no night sweats. No weight loss. HEENT: He denies any headaches. No dizziness. No visual changes. No sore throat. No rhinorrhea. No neck pain. No adenopathy. PULMONARY: No hemoptysis. No cough. No wheezing. CARDIOVASCULAR: He denies any chest pain. No shortness of breath. No PND. No orthopnea. GASTROINTESTINAL: No abdominal pain. No nausea. No vomiting. No change in bowels. GENITOURINARY: No urinary frequency or hematuria. No hesitancy. He said he did have one episode of what he calls incontinence of feeling like he could not control his bladder. MUSCULOSKELETAL: He notes lower extremity weakness and has to use a walker to ambulate and does admit to pain in the right ankle after the fall and fracture. SKIN AND INTEGUMENT: He does notes the redness in his heels that he calls blisters which are painful and no other skin changes or rash. PSYCHIATRIC: No symptoms of anxiety or depression. PAST MEDICAL HISTORY: Significant for myasthenia gravis, hyperlipidemia, BPH, chronic lower extremity lymphedema, obstructive sleep apnea, and hypertension. PAST SURGICAL HISTORY: He has had an inguinal hernia repair and right leg surgery. ALLERGIES: MINOCIN AND TETRACYCLINE. SOCIAL HISTORY: He is . He is a nonsmoker and nondrinker. No drug use. FAMILY HISTORY: No history of any heritable diseases. CURRENT MEDICATIONS: 1. Mestinon 60 mg q.i.d. 2. Zanaflex 4 mg t.i.d. 3. Keppra 250 mg twice daily. 4. Clonazepam 1 mg twice a day. 5. Lyrica 150 mg daily. 6. Flomax 0.4 mg at bedtime. 7. Lipitor 40 mg daily. 8. [place] 5/325 twice daily. 9. Aspirin 325 mg daily. 10. Vitamin D3 1000 units daily. 11. Multivitamin once a day. PHYSICAL EXAMINATION: GENERAL: He is alert and oriented. He appears to be in no acute distress. He is well developed and well nourished. VITAL SIGNS: Blood pressure is 146/87, heart rate 76, respiratory rate of 16, and he is afebrile. HEENT: Pupils are equal, round, and reactive to light. Extraocular muscles are intact. Sclerae anicteric. Throat; no erythema, no exudates. Uvula is midline. There is no erythema. Ears: Tympanic membranes are pearly de souza. NECK: There is no adenopathy. No bruits. LUNGS: Clear to auscultation. I did not appreciate any wheezing, rales, or rhonchi. CARDIOVASCULAR: He has a normal S1, S2. I did not appreciate an S3 or S4. No murmurs, clicks, or rubs. ABDOMEN: Obese. It is soft. It is nontender, nondistended. Positive for bowel sounds. There is no rebound or guarding. No organomegaly. EXTREMITIES: He has trace leg edema. No calf tenderness. NEUROLOGICAL: He does have weakness in both lower extremities. Upper extremities muscle strength is 5/5. His cranial nerves are intact. There was no evidence of any fatiguing. SKIN AND INTEGUMENT: He has mildly raised erythematous patches on the neck and also some erythema on both of the heels, but no discrete vesicles. LABORATORY RESULTS: White blood cell count 6.3, hemoglobin 14.3, hematocrit is 44, platelet count is 189. Sodium 139, potassium 4.7, chloride is 105, CO2 is 26, BUN of 26, creatinine 1.54, glucose is 107. Troponin is less than 0.010. TSH is 1.53. He had x-ray of his chest showing subtle nodule in the upper lobe, but otherwise no infiltrates or effusions, this is by my reading. ASSESSMENT AND PLAN: 1. This is a pleasant 73-year-old gentleman who had the sudden onset of weakness and hypotension. It is unclear whether or not this represents an episode of orthostatic hypotension and unclear if this is a feature of myasthenia gravis. He has not had any recent changes in medications. He denies any risk for being volume depleted. Although, his BUN and creatinine are elevated and this is likely the cause of his symptoms. He will be placed in observation. He will be placed on IV fluids for gentle hydration. We will reconcile and restart his home medications and consult Neurology in the a.m. 2. Hypertension. Again restart home medications as well as p.r.n. medicines for elevated blood pressure. 3. Sleep apnea. We will continue his CPAP at night. Job ID: [id number]
[2019-03-01] MEDS: HYDROcodone/Acetaminophen 7.5/325 mg Tablet PO PRN ×4 (04:11→19:35)
[2019-03-01 05:28] LABS: #Basophils 0.1 thou/uL (0.0-0.2); #Eosinphils 0.4 thou/uL (0.0-0.7); #Lymphocytes 1.8 thou/uL (1.20-3.40); #Monocytes 0.6 thou/uL (0.11-0.59); #Neutrophils 2.5 thou/uL (1.40-6.50); %Eosinophils 6.9 % (0.0-10.0); %Lymphocytes 34.5 % (21.0-51.0); %Monocytes 10.6 % (0.0-10.0); %Neutrophils 47.1 % (42.0-75.0); Hemoglobin 12.8 g/dL (14.0-18.0); Mean Corpuscular HGB CONC 31.7 g/dL (32.0-36.0); Mean Corpuscular Hemoglobin 28.2 pg (27.0-31.0); Mean Corpuscular Volume 89.1 fL (78.0-98.0); Mean Platelet Volume 7.9 fL (7.4-10.4); Platelet Count 176 thou/uL (130-400); RBC Distribution Width 14.6 % (11.5-14.5); Red Blood Cell (RBC) Count 4.52 mill/uL (4.70-6.10); White Blood Cell (WBC) Count 5.3 thou/uL (4.8-10.8)
[2019-03-01 05:52] LABS: Anion Gap 15 mmol/L (10-20); BUN (Urea Nitrogen) 23 mg/dL (8.4-25.7); Calc. Creatinine Clearance 137 mL/min (70-130); Calcium 8.9 mg/dL (7.8-10.44); Carbon Dioxide 20 mmol/L (23-31); Chloride 109 mmol/L (98-107); Estimated GFR-MDRD 79; Glucose 92 mg/dL (83-110); Sodium 140 mmol/L (136-145)
[2019-03-01] MEDS: Pyridostigmine Bromide IR 60 MG TAB PO SCH ×3 (06:42→17:40)
[2019-03-01] MEDS ORDERED: Pyridostigmine Bromide IR 60 MG TAB PO SCH (09:00)
[2019-03-01] MEDS: clonazePAM 1 MG TAB PO SCH ×2 (10:05→21:52)
[2019-03-01] MEDS: Famotidine 20 MG TAB PO SCH ×2 (10:06→21:53)
[2019-03-01] MEDS: Pregabalin 75 MG CAP PO SCH ×2 (10:07→21:52)
[2019-03-01] MEDS: levETIRAcetam 500 mg/5 ml Oral Solution PO SCH ×2 (10:09→21:51)
[2019-03-01] MEDS: Enoxaparin Sodium 40 MG/0.4 ML SYRINGE SC SCH (10:11)
[2019-03-01] MEDS: Sodium Chloride 0.9% 1,000 ML IV SCH (12:23)
--- NOTE | 2019-03-01 14:32 | PRG ---
DATE OF SERVICE: 03/01/2019 SUBJECTIVE: The patient is seen and examined at the bedside. He feels significantly better, but he would like to go home today. He does not complain about any headache or dizziness. OBJECTIVE: VITAL SIGNS: Blood pressure is 168/81, pulse is 66, temperature is 99.3, respirations 16, O2 saturation is 96% on room air. His orthostatic changes; blood pressure is 146/67 while supine, it drops to 125/74 with standing and sitting is 139/87. IMPRESSION: 1. Orthostatic hypotension, probably low volume related. We will continue his gentle hydration and we will ask Neurology to see the patient. 2. Hypertension per history. 3. Sleep apnea. 4. Myasthenia gravis. 5. Hyperlipidemia. 6. Benign prostatic hypertrophy. 7. Chronic lower extremity lymphedema. PLAN: Plan is to continue gentle hydration. Get PT involved and we will see how he does tomorrow, and he should be able to be discharged in the next 24 hours. We will continue his current regimen. I think Flomax could be one of the medications, which can contribute to his orthostasis, so I am going to stop that. Job ID: [id number]
--- NOTE | 2019-03-01 15:10 | CON ---
DATE OF TELEMEDICINE CONSULTATION: 03-01-19 VIKAS Lemus. CHIEF COMPLAINT: Syncope. HISTORY OF PRESENT ILLNESS: The patient is a 73-year-old man, who usually sees Dr. Enriquez for his myasthenia gravis. The patient reports he normally walks with a walker. He changed his walker. He walked in the corridor yesterday and follows him in a wheelchair. He gets into the car normally, but yesterday, he got out of bed with his feet on the floor and suddenly he felt dizzy and lightheaded , and he felt like he was weak when he stood up and his head dropped and that is not normal for him. However, since he felt he was weaker, he decided to come to the hospital. He had pneumonia and sepsis recently about 10 days ago and he was just discharged based on the records here on the 18 of February, at which time, his discharge diagnosis was pneumonia and he was on amoxicillin and nebulizers at the time of discharge. The patient was evaluated in the ER and he was found to have orthostatic hypotension and a question being asked if this is myasthenia or hypotension. PAST MEDICAL HISTORY: Positive for myasthenia gravis and foot problem. The patient complains of chronic pain. He also says he accumulated various diagnoses in the hospital. He does not agree that he has hyperlipidemia or prostate problem. He definitely has chronic lower extremity lymphedema, chronic pain in his legs. He feels like he wakes up with pain between 4 to 5 a.m. and the pain goes up his legs and this is a deep pain. He also has obstructive sleep apnea and hypertension. PAST SURGICAL HISTORY: Inguinal hernia repair and right leg surgery. ALLERGIES: HE IS ALLERGIC TO MINOCIN AND TETRACYCLINE. SOCIAL HISTORY: He is . He lives with his , who is also disabled and in a wheelchair. He is a nonsmoker. No alcohol. No drug use. FAMILY HISTORY: Negative for any autoimmune illness. CURRENT MEDICATIONS: At home; 1. Mestinon. 2. Zanaflex. 3. Keppra. 4. Clonazepam. 5. Lyrica. 6. Flomax. 7. Lipitor. 8. [place]. 9. Aspirin. 10. Vitamins. 11. Multivitamin. REVIEW OF SYSTEMS: PULMONARY: Negative for shortness of breath or cough. GI: Negative for diarrhea, nausea, or vomiting. HEMATOLOGICAL: Negative for bleeding diathesis or anemia. DERMATOLOGIC: Negative for rash. OPHTHALMOLOGIC: Negative for vision problems. ENT: Negative. LABORATORY DATA: His current workup; white count 5.3, hemoglobin 12.8, hematocrit 40.3, platelet count 176. Sodium 140, potassium 4.0, chloride 109, bicarb 20, BUN 23, creatinine 0.93, glucose 79. TSH 1.53. PHYSICAL EXAMINATION: VITAL SIGNS: Temperature 97.6, pulse 56, respiratory rate 16, O2 sats 98%, blood pressure 176/83. GENERAL APPEARANCE: Well-built, well-nourished man, who is slightly obese, comfortable in bed. CHEST: Clear vesicular breathing. CARDIOVASCULAR: S1 and S2 heard. No murmurs. ABDOMEN: Soft. NEUROLOGICAL: Higher intellectual functions normal. Orientation to time, place , and person. Cranial nerves, normal extraocular movements. Tongue midline. No atrophy noted. Normal sensation of face. Normal hearing. No facial asymmetry noted. Motor; bulk normal, tone normal. Strength 5/5 in iliopsoas, hamstrings, quadriceps, ankle dorsiflexion, plantar flexion, deltoid, biceps, triceps, wrist extension and flexion bilaterally, finger extension and flexion bilaterally. Deep tendon reflexes 2+ throughout. Fatigability was negative for both eye muscles as well as upper extremities. He was able to have sustained gaze without diplopia and was able to hold his arms up even up to 2 minutes without any fatigue. IMPRESSION: The patient is a 73-year-old man with chronic pain as well as a diagnosis of myasthenia. He has never received immunosuppressants, IVIG, or plasma exchange for myasthenia. He sees Dr. Enriquez on a regular basis. His current examination is normal. He does have orthostatic hypotension as noted in his chart. His diagnosis is more presyncopal event, likely secondary to hypotension rather than myasthenic episode. RECOMMENDATIONS: Please correct his medical problems, mainly his orthostatic hypotension. The patient will see Dr. Enriquez as needed. He may also have some social needs that are not known to us. Please have a nephrology social worker talk to him. Job ID: [id number] [id number]
[2019-03-01] MEDS ORDERED: Tamsulosin HCl 0.4 MG CAP PO SCH (21:00)
[2019-03-02] MEDS ORDERED: tiZANidine HCl 4 MG TAB PO SCH ×2 (00:15→09:00)
[2019-03-02] MEDS: HYDROcodone/Acetaminophen 7.5/325 mg Tablet PO PRN ×3 (00:32→09:26)
[2019-03-02] MEDS: Pyridostigmine Bromide IR 60 MG TAB PO SCH ×3 (00:32→13:43)
[2019-03-02 07:54] LABS: #Eosinphils 0.4 thou/uL (0.0-0.7); #Lymphocytes 2.3 thou/uL (1.20-3.40); #Monocytes 0.4 thou/uL (0.11-0.59); %Basophils 0.6 % (0.0-1.0); %Eosinophils 7.1 % (0.0-10.0); %Lymphocytes 44.2 % (21.0-51.0); %Monocytes 8.6 % (0.0-10.0); %Neutrophils 39.5 % (42.0-75.0); Hemoglobin 12.8 g/dL (14.0-18.0); Mean Corpuscular HGB CONC 31.9 g/dL (32.0-36.0); Mean Corpuscular Hemoglobin 28.3 pg (27.0-31.0); Mean Corpuscular Volume 88.6 fL (78.0-98.0); Mean Platelet Volume 7.9 fL (7.4-10.4); Platelet Count 164 thou/uL (130-400); RBC Distribution Width 14.7 % (11.5-14.5); Red Blood Cell (RBC) Count 4.54 mill/uL (4.70-6.10); White Blood Cell (WBC) Count 5.1 thou/uL (4.8-10.8)
[2019-03-02 08:14] LABS: Anion Gap 11 mmol/L (10-20); BUN (Urea Nitrogen) 18 mg/dL (8.4-25.7); Calc. Creatinine Clearance 155 mL/min (70-130); Calcium 9.3 mg/dL (7.8-10.44); Carbon Dioxide 25 mmol/L (23-31); Chloride 108 mmol/L (98-107); Estimated GFR-MDRD Greater than 90; Glucose 79 mg/dL (83-110); Potassium 4.3 mmol/L (3.5-5.1); Sodium 140 mmol/L (136-145)
[2019-03-02] MEDS: levETIRAcetam 500 mg/5 ml Oral Solution PO SCH (09:29)
[2019-03-02] MEDS: Pregabalin 75 MG CAP PO SCH (09:29)
[2019-03-02] MEDS: clonazePAM 1 MG TAB PO SCH (09:29)
[2019-03-02] MEDS: Enoxaparin Sodium 40 MG/0.4 ML SYRINGE SC SCH (09:30)
[2019-03-02] MEDS: Famotidine 20 MG TAB PO SCH (09:30)
[2019-03-02 11:22] VITALS: BP 126/63; TEMP 97.3
--- NOTE | 2019-03-03 04:15 | DIS ---
DATE OF ADMISSION: 02/28/2019 DATE OF DISCHARGE: 03/02/2019 RETANNED LEATHER ROLLER: Dr. Rendon, Neurology Service. FINAL DIAGNOSES: 1. Orthostatic hypotension, most likely related to volume loss. The patient was rehydrated. 2. Hypertension per history. 3. Sleep apnea. 4. Myasthenia gravis. 5. Hyperlipidemia. 6. Benign prostatic hypertrophy. 7. Chronic lower extremity lymphedema. HOSPITAL COURSE: The patient is a 73-year-old male, who was admitted to the hospital with sudden onset of generalized weakness and feeling lightheaded. Apparently, he was on his way to a doctor's appointment when he stood up with a walker and suddenly felt extremely weak and he felt like he was going to pass out. Apparently, his took his blood pressure and the systolic blood pressure was in the 90s. She called EMS and EMS up on arrival, checked blood pressure and it was at about 60 systolic. He was brought to the emergency room for further evaluation. He had a NIF test any this done, which was negative. The patient denied any fever or chills. There was no any change in his medications recently. No cough, no congestion. He was not short of breath. At the time of emergency room evaluation, his white count was 6.3, hemoglobin 14.3, hematocrit 44, and platelet count 189,000. Electrolytes were within normal limits. Creatinine 1.54 and BUN was up to 26. TSH was 1.53. Troponin was less than 0.010. Chest x-ray showed subtle nodule in the upper lobe, but otherwise no infiltrate or effusions. It was not really clear whether this was related to his myasthenia gravis or he was volume depleted. His BUN and creatinine were elevated, which was suggestive of some volume depletion. The patient was placed on observation, placed on IV fluids for gentle hydration, and neurology consultation was requested. He was continued on his CPAP at night during this hospitalization. Risk Management Consultant Dr. Rendon from Neurology Service felt that this was orthostasis and this was not related to his myasthenia gravis. His prerenal azotemia was corrected with IV fluids. His creatinine is back to normal range. He was able to get up and walk with PT, they recommended 4-wheel walker to be use at home and he is doing well. His blood pressure is 126/63, respiratory rate is 16, pulse is 56, and O2 saturation is 92% on room air. He is seen and evaluated before his discharge. His Flomax was held. He is going to stay on heart healthy diet. Activities as tolerated. He was told to take time when he gets up and starts moving around. His home medications at the time of discharge; 1. Aspirin 325 mg once a day. 2. Vitamin D3, 1000 units once a day. 3. Atorvastatin 40 mg at bedtime. 4. Testosterone (Androderm) 4 mg transdermally daily. 5. Keppra 250 mg twice a day. 6. Weldon 7.5 mg/325 one tablet every 4 hours p.r.n. as needed. 7. Fluticasone 2 sprays to each nostril daily. 8. Vitamin B12 two tablets daily. 9. Simethicone 80 mg 3 times a day p.r.n. as needed. 10. Mestinon 60 mg 4 times a day. 11. Lyrica, to continue the same dose he was taking before. 12. Tizanidine 1 tablet 3 times a day. 13. Clonazepam 1 tablet twice a day. 14. Metaxalone 1 tablet 3 times a day p.r.n. as needed. He is going to follow up with his primary care physician in 1 week and follow up with Dr. Enriquez for his regular appointments. He will have prescription for 4-wheel walker to be used at home. He is discharged home in good condition. The time spent on this discharge is less than 30 minutes. Job ID: [id number]
== END 2019-03-02 14:32 | disposition home health service (06) ==
LOC: ERS 15:22 → 2SE 18:00
PROVIDERS: ADMIT Internal Medicine; ATTEND Internal Medicine
DX: I95.1 Orthostatic hypotension (principal); I10 Essential (primary) hypertension; G47.33 Obstructive sleep apnea (adult) (pediatric); E78.5 Hyperlipidemia, unspecified; G70.00 Myasthenia gravis without (acute) exacerbation; N40.0 Benign prostatic hyperplasia without lower urinary tract symptoms; Z79.82 Long term (current) use of aspirin; Z79.891 Long term (current) use of opiate analgesic; Z79.899 Other long term (current) drug therapy; Z88.1 Allergy status to other antibiotic agents
CPT/HCPCS: 71045; 73610; 80048 ×2; 81003; 82550; 83605; 83880; 84484 ×2; 85025 ×2; 93005; 96372 ×2; 97116; 97139 ×3; 97530; 99285; G0378 ×4; 36415; 80053; 84443; J1650

== ENCOUNTER 2019-05-13 14:07 | Outpatient (CLI) | payer MEDICARE, BC ==
[~2019-05-13 14:07] MED LIST changes: -ISOVUE-370 76%-LOCM 1 ML ONE; +Iopamidol-370 76% 500 ML 1 ML ONE
--- NOTE | 2019-05-13 15:30 | CT ---
Exam: Chest CT with contrast COMPARISON: CT angiogram of the chest 02/08/2019 HISTORY: Lung nodule FINDINGS: Mediastinum: No mass, lymphadenopathy or hematoma. HEART: Nonenlarged. No significant pericardial fluid. Coronaries: There are coronary calcifications. Aorta: No aneurysm or dissection Upper abdomen: No acute abnormality. Trachea and central bronchi: Patent. Pleural spaces: No significant pleural effusion. LUNGS: Dependent atelectatic changes. No consolidation. Right lung: Redemonstration of a pleural-based density along the lateral right lung apex measuring 2. 3 x 1.7 cm. Previously, this opacity measured 3.7 x 1.7 cm. No additional masses in the right lung. Left lung: Interval development of a pleural-based solid opacity/mass in the left lung apex, measurin g 1.7 x 0.8 cm. Coronal images demonstrate an associated calcification. No additional masses. Osseous structures: No lytic or blastic lesions. IMPRESSION: 1. Bilateral apical opacities. The right lung opacity has decreased in size. Interval development of a left apical opacity with a component abutting the pleural margin. Three-month follow-up CT is recommended. Code lung nodule Transcribed Date/Time: 05/13/2019 5:25 PM
== END 2019-05-13 14:08 | disposition home or self-care (01) ==
LOC: BICCT 14:07
PROVIDERS: ATTEND Internal Medicine
DX: R91.1 Solitary pulmonary nodule (principal); R91.8 Other nonspecific abnormal finding of lung field
CPT/HCPCS: 71260; 82565; Q9967

== ENCOUNTER 2019-08-26 13:09 | Outpatient (CLI) | payer MEDICARE, BC ==
--- NOTE | 2019-08-26 13:58 | CT ---
EXAM: CT of the chest without contrast HISTORY: Lung mass seen on prior CT COMPARISON: 02/08/2019 TECHNIQUE: Multiple contiguous axial images were obtained in a CT the chest without contrast. Coronal and sagittal reformats were performed. FINDINGS: HEART: Normal in size without focal cardiac abnormality MEDIASTINUM: No hilar or mediastinal lymphadenopathy. Calcified right hilar lymph nodes are seen. Ath erosclerotic calcifications in the aorta and coronary arteries. Evaluation of the mediastinum is limited without IV contrast. LUNGS: There are bilateral upper lobe peripheral areas of round-like opacity which likely represents scarring/round atelectasis. This is larger and stable in the right upper lobe where it measures 2.2 cm in size. This is stable in the left upper lobe where it measures 1.5 cm in size. Atelectasis is al so seen in the dependent aspect of both lungs. No suspicious pulmonary nodules are seen. PLEURAL SPACE: No pneumothorax or pleural effusion. CHEST WALL SOFT TISSUES: Unremarkable OSSEOUS STRUCTURES: Degenerative changes in the spine. VISUALIZED SUBDIAPHRAGMATIC STRUCTURES: Unremarkable IMPRESSION: Stable bilateral upper lobe peripheral pleural thickening/nodularity most likely represents scarring and/or round atelectasis.
== END 2019-08-26 13:10 | disposition home or self-care (01) ==
LOC: BICCT 13:09
PROVIDERS: ATTEND Internal Medicine
DX: R91.8 Other nonspecific abnormal finding of lung field (principal)
CPT/HCPCS: 71250